=== PATIENT | male | born 1970 | race Caucasian/White ===

== ENCOUNTER → 2016-10-22 | Outpatient (CLI) | payer OTHER ==
[~2016-10-22] MED LIST: ASPI325T OR; No Historical Meds; PERC5TAB8 OR
[2016-10-22 18:04] LABS: ALBUMIN 4.1 GM/DL (3.2-5.2); ALBUMIN/GLOBULIN RATIO 1.11 (1.00-1.93); ALKALINE PHOSPHATASE 62 U/L (45-117); ALT/SGPT 139 U/L (12-78); ANION GAP 6 MEQ/L (8-16); AST/SGOT 74 U/L (15-37); BILIRUBIN,TOTAL 0.8 MG/DL (0.2-1.0); BLOOD UREA NITROGEN 16 MG/DL (7-18); CALCIUM LEVEL 8.8 MG/DL (8.5-10.1); CARBON DIOXIDE LEVEL 27 MEQ/L (21-32); CHLORIDE LEVEL 108 MEQ/L (98-107); CHOLESTEROL LEVEL 192 MG/DL (<200); GLOMERULAR FILTRATION RATE > 60.0 (>60); GLUCOSE, FASTING 82 MG/DL (70-105); POTASSIUM SERUM 4.4 MEQ/L (3.5-5.1); SODIUM LEVEL 141 MEQ/L (136-145); TOTAL PROTEIN 7.8 GM/DL (6.4-8.2); TRIGLYCERIDES LEVEL 151 MG/DL (<150)
--- NOTE | 2016-10-23 03:16 | REP ---
Clinical: Pain. Impingement syndrome. Technique: Internal rotation, external rotation, and Y view left shoulder. Findings: No acute fracture or dislocation. The acromioclavicular and glenohumeral joints are intact. No periarticular calcifications or degenerative changes are appreciated. Sub acromial space is normal. Surrounding soft tissues are unremarkable. Impression: Normal left shoulder radiographs. If the patient remains symptomatic consider MRI for further investigation. Signed by Brown Martinez MD 10/23/2016 03:07 A
[2016-10-23 10:00] LABS: HEPATITIS B SURFACE ANTIBODY POSITIVE (POSITIVE)
== END ==
LOC: M LAB 16:11
PROVIDERS: ATTEND Family Medicine Addiction Medicine
DX: M75.42 Impingement syndrome of left shoulder (principal); B19.20 Unspecified viral hepatitis C without hepatic coma; E78.5 Hyperlipidemia, unspecified; F52.21 Male erectile disorder

== ENCOUNTER 2017-09-05 15:12 | Emergency (ER) | payer OTHER ==
[2017-09-05] MEDS: ADACEL/BOOSTRIX VACCINE (DIPHTH/PERTUSS/ACELL/TETANUS)0.5ML SYR (90715) IM (15:45)
[2017-09-05] MEDS: LIDOCAINE 2% W/EPIN INJ 20ML **PRES FREE INJ (15:45)
== END 2017-09-05 16:29 | disposition home or self-care (01) ==
LOC: M ED 15:12
DX: S61.412A Laceration without foreign body of left hand, initial encounter (principal); W26.8XXA Contact with other sharp object(s), not elsewhere classified, initial encounter; Y92.099 Unspecified place in other non-institutional residence as the place of occurrence of the external cause; Y93.9 Activity, unspecified; Y99.9 Unspecified external cause status; Z86.19 Personal history of other infectious and parasitic diseases; M54.9 Dorsalgia, unspecified; F17.200 Nicotine dependence, unspecified, uncomplicated; Z79.899 Other long term (current) drug therapy
CPT/HCPCS: 90715

== ENCOUNTER → 2017-12-25 | Outpatient (REF) | payer OTHER ==
[2017-12-25 13:03] LABS: ALBUMIN 3.8 GM/DL (3.2-5.2); ALBUMIN/GLOBULIN RATIO 1.09 (1.00-1.93); ALKALINE PHOSPHATASE 67 U/L (45-117); ALT/SGPT 25 U/L (12-78); AST/SGOT 18 U/L (7-37); BILIRUBIN,DIRECT 0.2 MG/DL (0.0-0.2); BILIRUBIN,TOTAL 1.1 MG/DL (0.2-1.0); TOTAL PROTEIN 7.3 GM/DL (6.4-8.2)
[2017-12-29 14:12] LABS: HEPATITIS C QUANTITATION HCV Not Detected IU/mL (.)
== END ==
LOC: M SFHCPLAZ 08:55
DX: B18.2 Chronic viral hepatitis C (principal)
CPT/HCPCS: 80076

== ENCOUNTER → 2018-02-16 | Outpatient (CLI) | payer OTHER ==
[2018-02-16 14:13] LABS: HEMATOCRIT 45.8 % (42.0-52.0); HEMOGLOBIN 15.5 g/dl (13.5-17.5); MEAN CORPUSCULAR HGB CONC 33.8 g/dl (32.0-36.5); MEAN CORPUSCULAR VOLUME 88.6 fl (80.0-96.0); PLATELET COUNT, AUTOMATED 230 10^3/uL (150-450); RED BLOOD COUNT 5.17 10^6/uL (4.30-6.10); RED CELL DISTRIBUTION WIDTH 12.9 % (11.5-14.5); WHITE BLOOD COUNT 6.2 10^3/uL (4.0-10.0)
[2018-02-16 14:35] LABS: ANION GAP 9 MEQ/L (8-16); BLOOD UREA NITROGEN 12 MG/DL (7-18); CALCIUM LEVEL 8.7 MG/DL (8.5-10.1); CARBON DIOXIDE LEVEL 25 MEQ/L (21-32); CHLORIDE LEVEL 110 MEQ/L (98-107); GLOMERULAR FILTRATION RATE > 60.0 (>60); GLUCOSE, FASTING 93 MG/DL (70-100); POTASSIUM SERUM 4.2 MEQ/L (3.5-5.1); SODIUM LEVEL 144 MEQ/L (136-145)
== END ==
LOC: M LAB 13:18
DX: Z01.812 Encounter for preprocedural laboratory examination (principal); M20.12 Hallux valgus (acquired), left foot; M20.42 Other hammer toe(s) (acquired), left foot
CPT/HCPCS: 80048

== ENCOUNTER 2018-02-18 08:05 | Day surgery (SDC) | payer OTHER ==
[~2018-02-18 08:05] MED LIST changes: -ASPI325T OR; +LIDOCAINE 1% MDV 20ML VIAL SQ; +LIDOCAINE 2% INJ 100 MG/5 ML SDV (FOR ANES.) As Ordered; +MIDAZOLAM INJ 2 MG/2 ML VIAL (J2250) As Ordered; -No Historical Meds; +ONDANSETRON 4MG/2ML VIAL (J2405) As Ordered; -PERC5TAB8 OR; +PROPOFOL 200 MG/20 ML VIAL As Ordered; +fentaNYL 100 MCG/2 ML INJECTION (J3010) As Ordered
[2018-02-18] MEDS: LR 1,000 ML IV ×2 (09:08)
[2018-02-18] MEDS: BUPIVACAINE HCL 0.5% 30 ML VIAL As Ordered ×2 (10:05)
[2018-02-18] MEDS: LIDOCAINE 1% SDV INJ 30 ML VIAL As Ordered ×2 (10:05)
[2018-02-18] MEDS ORDERED: GLYCOPYRROLATE INJ 0.2 MG/ML 2 ML VIAL As Ordered ×2 (10:13)
[2018-02-18] MEDS ORDERED: PROPOFOL 200 MG/20 ML VIAL As Ordered ×6 (10:13→12:10)
[2018-02-18] MEDS ORDERED: KETAMINE HCL 200 MG/20 ML VIAL As Ordered ×2 (10:13)
[2018-02-18] MEDS ORDERED: MIDAZOLAM INJ 5 MG/ML VIAL (J2250) As Ordered ×2 (10:13)
[2018-02-18] MEDS: dexameTHASONE 4 MG/ML 1ML VIAL (J1100) As Ordered ×2 (12:00)
[2018-02-18] MEDS ORDERED: LR 1,000 ML IV ×2 (12:45)
[2018-02-18] MEDS ORDERED: PERCOCET 5MG/325MG TAB PO ×2 (12:45)
== END 2018-02-18 13:25 | disposition home or self-care (01) ==
LOC: M SDC 08:05
DX: M21.612 Bunion of left foot (principal); M20.12 Hallux valgus (acquired), left foot; M20.42 Other hammer toe(s) (acquired), left foot; K21.9 Gastro-esophageal reflux disease without esophagitis; F41.9 Anxiety disorder, unspecified; F32.9 Major depressive disorder, single episode, unspecified; F17.210 Nicotine dependence, cigarettes, uncomplicated; Z79.899 Other long term (current) drug therapy
CPT/HCPCS: 28296

== ENCOUNTER → 2018-08-01 | Outpatient (REF) | payer OTHER ==
[~2018-08-01] MED LIST changes: +ASPI325T OR; +GABA800T4 PO; +HYDR-3719 PO; +IBUP-1022 PO; -LIDOCAINE 1% MDV 20ML VIAL SQ; -LIDOCAINE 2% INJ 100 MG/5 ML SDV (FOR ANES.) As Ordered; +MELA10CA PO; -MIDAZOLAM INJ 2 MG/2 ML VIAL (J2250) As Ordered; +No Historical Meds; +OMEP40CA2 PO; -ONDANSETRON 4MG/2ML VIAL (J2405) As Ordered; +OXYC1TAB23 PO; +PERC5TAB8 OR; -PROPOFOL 200 MG/20 ML VIAL As Ordered; +SUBO8MIS SL; -fentaNYL 100 MCG/2 ML INJECTION (J3010) As Ordered
== END ==
LOC: M LAB 18:13
PROVIDERS: ATTEND Podiatrist Foot & Ankle Surgery
DX: Z01.818 Encounter for other preprocedural examination (principal)

== ENCOUNTER → 2018-08-03 | Outpatient (CLI) | payer OTHER ==
[2018-08-03 16:32] LABS: HEMATOCRIT 45.2 % (42.0-52.0); HEMOGLOBIN 15.1 g/dl (13.5-17.5); MEAN CORPUSCULAR HEMOGLOBIN 29.5 pg (27.0-33.0); MEAN CORPUSCULAR HGB CONC 33.4 g/dl (32.0-36.5); MEAN CORPUSCULAR VOLUME 88.5 fl (80.0-96.0); PLATELET COUNT, AUTOMATED 226 10^3/uL (150-450); RED BLOOD COUNT 5.11 10^6/uL (4.30-6.10); WHITE BLOOD COUNT 5.8 10^3/uL (4.0-10.0)
[2018-08-03 16:41] LABS: BLOOD UREA NITROGEN 16 MG/DL (7-18); CALCIUM LEVEL 8.8 MG/DL (8.5-10.1); CARBON DIOXIDE LEVEL 25 MEQ/L (21-32); CHLORIDE LEVEL 108 MEQ/L (98-107); CREATININE FOR GFR 0.89 MG/DL (0.70-1.30); GLOMERULAR FILTRATION RATE > 60.0 (>60); GLUCOSE, FASTING 88 MG/DL (70-100); POTASSIUM SERUM 4.3 MEQ/L (3.5-5.1); SODIUM LEVEL 138 MEQ/L (136-145)
== END ==
LOC: M LAB 07-28 10:11
PROVIDERS: ATTEND Podiatrist Foot & Ankle Surgery
DX: Z01.818 Encounter for other preprocedural examination (principal)

== ENCOUNTER 2018-08-05 07:27 | Day surgery (SDC) | payer OTHER ==
[~2018-08-05] VITALS: Ht 195.6 cm; Wt 121.1 kg
[~2018-08-05 07:27] MED LIST changes: -HYDR-3719 PO; +LR 1,000 ML IV ONE
[2018-08-05] MEDS ORDERED: fentaNYL 100 MCG/2 ML INJECTION (J3010) As Ordered ONE (07:57)
[2018-08-05] MEDS ORDERED: PROPOFOL 200 MG/20 ML VIAL As Ordered ONE ×2 (07:57→10:08)
[2018-08-05] MEDS ORDERED: LIDOCAINE 2% INJ 100 MG/5 ML SDV (FOR ANES.) As Ordered ONE (07:57)
[2018-08-05] MEDS ORDERED: MIDAZOLAM INJ 2 MG/2 ML VIAL (J2250) As Ordered ONE (07:57)
[2018-08-05] MEDS ORDERED: LIDOCAINE 1% MDV 20ML VIAL As Ordered ONE (08:38)
[2018-08-05] MEDS ORDERED: BUPIVACAINE HCL 0.5% 10 ML VIAL As Ordered ONE ×2 (08:38→09:06)
[2018-08-05] MEDS ORDERED: dexameTHASONE 4 MG/ML 1ML VIAL (J1100) As Ordered ONE ×2 (08:38→09:43)
[2018-08-05] MEDS ORDERED: KETOROLAC 60 MG/2 ML VIAL (J1885) As Ordered ONE (09:43)
[2018-08-05] MEDS ORDERED: ACETAMINOPHEN 1000MG 100ML IV BTL (OFIRMEV) (J0131 PER 10MG) As Ordered ONE (09:43)
[2018-08-05] MEDS ORDERED: ONDANSETRON 4MG/2ML VIAL (J2405) As Ordered ONE (09:43)
[2018-08-05] MEDS ORDERED: HYDR-3719 PO (10:58)
[2018-08-05] MEDS ORDERED: PERCOCET 5MG/325MG TAB As Ordered ONE (11:06)
[2018-08-05] MEDS ORDERED: ONDANSETRON 4MG/2ML VIAL (J2405) IV PRN (11:15)
[2018-08-05] MEDS ORDERED: LR 1,000 ML IV SCH (11:15)
[2018-08-05] MEDS ORDERED: PERCOCET 5MG/325MG TAB PO PRN (11:15)
[2018-08-05 11:25] VITALS: BP 128/72
[2018-08-05] MEDS ORDERED: PERCOCET 5MG/325MG TAB PO ONE (11:30)
--- NOTE | 2018-08-05 15:18 | RO ---
DATE OF PROCEDURE: 08/05/2018 PREPROCEDURE DIAGNOSES: Right foot bunion, hallux valgus, metatarsal deformity, 2 and 3 and hammertoe 2 and 3. POSTPROCEDURE DIAGNOSES: Right foot bunion, hallux valgus, metatarsal deformity, 2 and 3 and hammertoe 2 and 3. PROCEDURE: Right foot bunionectomy and first metatarsal osteotomy, Sergei osteotomy, shortening osteotomies metatarsals 2 and 3 and hammertoe correction toes 2 and 3. SURGEON: Dr. Cyrus Rain. PRODUCT MERCHANDISER: None. ANESTHESIA: Monitored anesthesia care. Preoperative injection of 30 mL of 1:1 mixture of 1% lidocaine plain, 0.5% Marcaine plain. ESTIMATED BLOOD LOSS: Minimal. MATERIALS: Arthrex 3.5 headless screw in the 1st metatarsal Arthrex 2.5 headless screws in the 2nd and 3rd metatarsals, 4-5 K-wires, #3-0 and #4-0 Vicryl, #4-0 nylon. Arthrex DynaNite staple. INJECTABLES: 1 mL Decadron 4 mg/mL. COMPLICATION: None. CONDITION: Stable. Ben Coreas is a 47-year-old male who presents with pain in his right foot. He presents today for surgical correction. The patient's site and side were identified and marked in the preoperative holding area. Consent was reviewed and obtained. All risks, complications and alternatives to the procedure were explained to the patient in detail and all questions were answered. DESCRIPTION OF PROCEDURE: The patient was brought to the operating room and placed on the operating room table in supine position. Monitored anesthesia care was delivered by the anesthesia team. Preoperative injection of 30 mL of 1:1 mixture of 1% lidocaine and 0.5% Marcaine plain were injected to the right foot. The right foot was prepped and draped in a normal sterile fashion. A tourniquet was applied to the right ankle and inflated to 250 mmHg. The patient received Ancef preoperatively. A dorsal incision was first made over the first metatarsophalangeal joint and carried through with a #15 blade. Dissection was carried to the metatarsophalangeal joint and capsule was identified. Bovie was used to maintain hemostasis. A T-capsulotomy was performed exposing the metatarsal head. Next, the lateral release was performed releasing the lateral capsule, sesamoidal ligaments and adductor tendon. McGlamry elevator was used to free the plantar structures. Following this, the medial eminence of the metatarsal was resected with sagittal saw and then osteotomy was performed of the metatarsal head transposing it laterally. This was fixated with an Arthrex 3.5 headless screw. The remaining bony ledge was removed with sagittal saw and smoothed with a rasp. The site was irrigated with normal saline. Next, attention was then paid to the proximal phalanx. Dissection was carried until the proximal phalanx bone was freed of soft tissue. Then using the sagittal saw, a wedge of the medial cortex was removed along the hallux to be translated into a more medial position. This was fixated with a Arthrex DynaNite staple. The site was irrigated with normal saline. A small wedge of the medial capsule of the 1st metatarsophalangeal joint was removed an capsular repaired was performed with #3-0 Vicryl, subcutaneous closure with #4-0 Vicryl, skin closure with #4-0 nylon. Next attention was paid to the 2nd and 3rd metatarsals. Dorsal incisions were made over each of these bones and carried through with a #15 blade. Dissection was carried to the metatarsophalangeal joints. Linear capsulotomy was performed exposing the 2nd and 3rd metatarsal heads. Using a McGlamry elevator, the plantar structures were released. An osteotomy was performed in the 2nd and 3rd metatarsal heads transposing them proximally. These were both fixated with an Arthrex 2.5 headless screw. The remaining bone ledge was removed with rongeur and smoothed with a rasp. Next, attention was paid distally towards the 2nd and 3rd toes. Dorsal incisions were made and tenotomies were made at the proximal interphalangeal joint exposing the proximal phalanx heads of the 2nd and 3rd toes. These were resected with a sagittal saw as well as the base of the middle phalanx cartilage. Using 4/5 K-wires, the toes were straightened in retrograde fashion from the distal toe into the metatarsal head. Wires were bent and cut. The extensor tendon was repaired with #3-0 Vicryl, subcutaneous closure with #4-0 Vicryl and skin closure of #4-0 nylon. 1 mL of Decadron was injected. Sterile dressings were applied. Tourniquet was deflated. The patient was brought to post anesthesia care unit (PACU) with vital signs stable and neurovascular status intact. He will be partial weightbearing. He will followup in the office in two days.
== END 2018-08-05 11:50 | disposition home or self-care (01) ==
LOC: M SDC 07:27
PROVIDERS: ATTEND Podiatrist Foot & Ankle Surgery
DX: M20.11 Hallux valgus (acquired), right foot (principal); M20.41 Other hammer toe(s) (acquired), right foot; M12.9 Arthropathy, unspecified; F41.9 Anxiety disorder, unspecified; F32.9 Major depressive disorder, single episode, unspecified; K21.9 Gastro-esophageal reflux disease without esophagitis; Z72.0 Tobacco use; Z86.19 Personal history of other infectious and parasitic diseases; Z86.59 Personal history of other mental and behavioral disorders; Z79.899 Other long term (current) drug therapy
CPT/HCPCS: 28299; 28308; 88300; C1713; J0131; J0690; J1100; J1885; J2250; J2405

== ENCOUNTER 2018-08-27 08:30 | Emergency (ER) | payer OTHER ==
[~2018-08-27] VITALS: Ht 195.6 cm; Wt 118.4 kg
[~2018-08-27 08:30] MED LIST changes: +HYDR-3719 PO; -LR 1,000 ML IV ONE
[2018-08-27] MEDS ORDERED: GABA600T4 (08:40)
[2018-08-27] MEDS ORDERED: GABA-843 (08:40)
[2018-08-27] MEDS ORDERED: TRAZ-160 (08:40)
[2018-08-27] MEDS ORDERED: NS 1,000 ML IV ONE (09:00)
[2018-08-27] MEDS ORDERED: ONDANSETRON 4MG/2ML VIAL (J2405) IV ONE ×2 (09:00→12:00)
[2018-08-27] MEDS ORDERED: FAMOTIDINE IV BAG 20 MG in APPROPRIATE DILUENT 1 EA IV ONE (09:00)
[2018-08-27] MEDS ORDERED: PANTOPRAZOLE 40MG INJ (PROTONIX) (C9113) IV ONE (09:00)
[2018-08-27 09:56] LABS: BASO % 0.2 % (0.0-1.0); EOS # 0.1 10^3/uL (0.0-0.50); EOS % 0.7 % (0.0-3.0); HEMATOCRIT 48.6 % (42.0-52.0); HEMOGLOBIN 16.3 g/dl (13.5-17.5); LYMPH # 2.3 10^3/uL (1.5-4.5); LYMPH % 27.3 % (24.0-44.0); MEAN CORPUSCULAR HEMOGLOBIN 28.5 pg (27.0-33.0); MEAN CORPUSCULAR HGB CONC 33.5 g/dl (32.0-36.5); MEAN CORPUSCULAR VOLUME 85.1 fl (80.0-96.0); MONO # 0.7 10^3/uL (0.0-0.8); MONO % 8.6 % (0.0-5.0); NEUTROPHILS # 5.3 10^3/uL (1.8-7.7); PLATELET COUNT, AUTOMATED 315 10^3/uL (150-450); RED BLOOD COUNT 5.71 10^6/uL (4.30-6.10); WHITE BLOOD COUNT 8.5 10^3/uL (4.0-10.0)
[2018-08-27] MEDS ORDERED: PROMETHAZINE INJ 25 MG/ML VIAL (J2550) IV ONE (10:45)
[2018-08-27 10:50] LABS: ALT/SGPT 12 U/L (12-78); AMYLASE 31 U/L (25-115); BILIRUBIN,DIRECT 0.2 MG/DL (0.0-0.2); BILIRUBIN,TOTAL 0.7 MG/DL (0.2-1.0); BLOOD UREA NITROGEN 19 MG/DL (7-18); CALCIUM LEVEL 8.9 MG/DL (8.5-10.1); CARBON DIOXIDE LEVEL 21 MEQ/L (21-32); CHLORIDE LEVEL 106 MEQ/L (98-107); CPK CREATINE PHOSPHOKINASE 57 U/L (39-308); CREATININE FOR GFR 1.21 MG/DL (0.70-1.30); GLOMERULAR FILTRATION RATE > 60.0 (>60); GLUCOSE, FASTING 125 MG/DL (70-100); LIPASE 86 U/L (73-393); MB/CK RELATIVE INDEX 2.11 (< OR =4); POTASSIUM SERUM 3.9 MEQ/L (3.5-5.1); SODIUM LEVEL 139 MEQ/L (136-145); TOTAL PROTEIN 7.9 GM/DL (6.4-8.2); TROPONIN I < 0.02 NG/ML (< 0.10)
--- NOTE | 2018-08-27 11:22 | REP ---
Chest two views HISTORY: Abdominal pain Comparison: None The lungs are clear. The heart is normal in size. The pulmonary vasculature is normal in appearance. The bony structure is intact. IMPRESSION: No acute disease. Electronically Signed by Carlito Baker MD 08/27/2018 11:14 A
[2018-08-27] MEDS ORDERED: ISOVUE-370 76% 100ML VIAL (Q9967) As Ordered ONE (11:56)
[2018-08-27] MEDS ORDERED: KETOROLAC 30 MG/ML VIAL (J1885) IV ONE (12:00)
--- NOTE | 2018-08-27 12:12 | REP ---
RIGHT UPPER QUADRANT ULTRASOUND: Real-time sonographic evaluation of right upper quadrant performed. No gallstones are seen in the gallbladder. There is no gallbladder wall thickening or pericholecystic fluid. There is dilation of the common bile duct, measuring approximately 1.1 cm. No stone is seen in the visualized common bile duct. There is a cyst in the left lobe of the liver measuring 8 mm in diameter. No other liver or pancreatic abnormality is seen. Pancreas is not optimally seen due to overlying bowel gas. Right kidney demonstrates no hydronephrosis or nephrolithiasis with normal size 14.3 cm in length. IMPRESSION: No gallstones are seen in a moderately distended gallbladder. There is no gallbladder wall thickening or free fluid. However, there is dilatation of the common bile duct 11 mm in diameter. No stone is seen in the visualized common bile duct. MRCP may be performed to evaluate the more distal common bile duct. Electronically Signed by Fahad Renteria MD 08/27/2018 04:37 P
--- NOTE | 2018-08-27 13:06 | REP ---
CT abdomen and pelvis with IV but without oral contrast: History: Upper abdominal pain. Intractable vomiting. Comparison CT study January 21, 2011. CT findings: There is a small zone of atelectasis in the right middle lobe which is a new finding from the 2011 study. This is incompletely seen at the top of the field of view. Cannot exclude pneumonia. There are granulomatous calcifications in the left lower lobe unchanged. Lung bases are otherwise clear. The liver is normal size and homogeneous in texture. The spleen measures 14.4 cm in greatest diameter and is considered mildly enlarged. It contains several granulomatous calcifications. In 2011, the spleen measured 12.3 cm in greatest diameter. No adrenal lesion is seen. No pancreatic abnormality is noted. No abnormality is visible in the gallbladder. The kidneys enhance symmetrically and are morphologically intact. No hydronephrosis or intrarenal calculus is seen. A normal retrocecal appendix is seen. No pancreatic abnormality. Normal caliber aorta is seen. No visceral arterial abnormality is observed. There is sigmoid colon diverticulosis without CT evidence of diverticulitis. No large or small bowel dilation is seen. No gastrointestinal mass lesion is observed. No pelvic mass or adenopathy is seen. There are one or two dystrophic calcifications in the prostate. Seminal vesicles and urinary bladder are unremarkable. No abdominal wall defect is seen. Bone window settings demonstrate bilateral L5 spondylolysis and a grade 1 L5-S1 spondylolisthesis. This measures 8 mm. There are degenerative disc changes at L5-S1 and L4-5. These bony changes are stable. Impression: 1. Infiltrate versus atelectasis right middle lobe of the lung. 2. Old granulomatous calcifications. Mild splenomegaly. 3. Normal appendix. Left colonic diverticulosis. No acute intra-abdominal abnormality. 4. Grade 1 spondylolisthesis due to bilateral L5 spondylolysis with secondary degenerative changes. Electronically Signed by Bear Swann MD 08/27/2018 01:12 P
[2018-08-27] MEDS ORDERED: ONDA4TAB6 PO (14:20)
[2018-08-27 14:21] VITALS: BP 118/71
--- NOTE | 2018-08-28 15:40 | ED PDOC ---
Post-Departure Follow-Up dr dc faxed formal report of ct abd/p for fu Octaviano Weir MD Aug 28, 2018 15:40
--- NOTE | 2018-08-29 06:37 | ECGEPIP ---
Stationary ECG Study 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
== END 2018-08-27 14:26 | disposition left against medical advice (07) ==
LOC: M ED 08:30
DX: R10.13 Epigastric pain (principal); R11.10 Vomiting, unspecified; K83.8 Other specified diseases of biliary tract; R16.1 Splenomegaly, not elsewhere classified; K57.30 Diverticulosis of large intestine without perforation or abscess without bleeding; R00.1 Bradycardia, unspecified; Z86.19 Personal history of other infectious and parasitic diseases; F11.20 Opioid dependence, uncomplicated; Z79.899 Other long term (current) drug therapy
CPT/HCPCS: 71046; 74177; 76705; 80048; 80076; 82150; 82550; 82553; 83690; 85025; 93005; 96365; 96366; 96375; 99284; C9113; J1885; J2405; Q9967

== ENCOUNTER 2018-10-07 07:59 | Emergency (ER) | payer OTHER ==
[~2018-10-07] VITALS: Ht 195.6 cm; Wt 122.7 kg
[~2018-10-07 07:59] MED LIST changes: +GABA-843; +GABA600T4; +ONDA4TAB6 PO; +TRAZ-252
[2018-10-07] MEDS ORDERED: ONDANSETRON 4MG/2ML VIAL (J2405) IV ONE (08:45)
[2018-10-07 09:01] LABS: BASO # 0.1 10^3/uL (0.0-0.2); BASO % 0.7 % (0.0-1.0); EOS # 0.1 10^3/uL (0.0-0.50); EOS % 0.9 % (0.0-3.0); HEMATOCRIT 45.3 % (42.0-52.0); LYMPH # 1.6 10^3/uL (1.5-4.5); LYMPH % 20.5 % (24.0-44.0); MEAN CORPUSCULAR HEMOGLOBIN 29.8 pg (27.0-33.0); MEAN CORPUSCULAR HGB CONC 33.1 g/dl (32.0-36.5); MEAN CORPUSCULAR VOLUME 90.1 fl (80.0-96.0); MONO # 0.7 10^3/uL (0.0-0.8); MONO % 8.7 % (0.0-5.0); NEUTROPHILS # 5.3 10^3/uL (1.8-7.7); NEUTROPHILS % 68.9 % (36.0-66.0); PLATELET COUNT, AUTOMATED 262 10^3/uL (150-450); RED BLOOD COUNT 5.03 10^6/uL (4.30-6.10); WHITE BLOOD COUNT 7.7 10^3/uL (4.0-10.0)
[2018-10-07 09:23] LABS: ALBUMIN 3.9 GM/DL (3.2-5.2); ALT/SGPT 25 U/L (12-78); AMYLASE 36 U/L (25-115); BILIRUBIN,DIRECT 0.1 MG/DL (0.0-0.2); BILIRUBIN,TOTAL 0.8 MG/DL (0.2-1.0); BLOOD UREA NITROGEN 16 MG/DL (7-18); CALCIUM LEVEL 8.7 MG/DL (8.5-10.1); CARBON DIOXIDE LEVEL 23 MEQ/L (21-32); CHLORIDE LEVEL 108 MEQ/L (98-107); CREATININE FOR GFR 0.96 MG/DL (0.70-1.30); GLOMERULAR FILTRATION RATE > 60.0 (>60); GLUCOSE, FASTING 117 MG/DL (70-100); LIPASE 85 U/L (73-393); POTASSIUM SERUM 3.9 MEQ/L (3.5-5.1); SODIUM LEVEL 141 MEQ/L (136-145); TOTAL PROTEIN 7.3 GM/DL (6.4-8.2)
[2018-10-07] MEDS: KETOROLAC 30 MG/ML VIAL (J1885) IV ONE ×2 (09:28→09:45)
[2018-10-07] MEDS ORDERED: GI COCKTAIL 50ML BTL(HYOSCYAMINE/MAALOX/LIDOCAINE VISCOUS)(1:3:1) PO ONE (09:30)
[2018-10-07] MEDS ORDERED: KETOROLAC 60 MG/2 ML VIAL (J1885) IM ONE (09:45)
[2018-10-07] MEDS ORDERED: OMEP40CA2 PO (10:36)
[2018-10-07] MEDS ORDERED: ONDA8TAB8 PO (10:37)
[2018-10-07] MEDS ORDERED: SUCR1SS PO (10:37)
[2018-10-07 10:46] VITALS: BP 137/75
== END 2018-10-07 10:50 | disposition home or self-care (01) ==
LOC: M ED 07:59
DX: K29.70 Gastritis, unspecified, without bleeding (principal); K21.0 Gastro-esophageal reflux disease with esophagitis; Z79.899 Other long term (current) drug therapy; F17.210 Nicotine dependence, cigarettes, uncomplicated
CPT/HCPCS: 80048; 80076; 82150; 83690; 85025; 96372; 96374; 99283; J1885; J2405

== ENCOUNTER → 2018-11-11 | Outpatient (CLI) | payer OTHER ==
[~2018-11-11] MED LIST changes: +ONDA8TAB8 PO; +SUCR1SS PO
[2018-11-11 10:58] LABS: CALCIUM LEVEL 9.1 MG/DL (8.5-10.1)
[2018-11-11 11:17] LABS: TOTAL 25(OH) VITAMIN D 28.3 NG/ML (30.0-100.0)
== END ==
LOC: M LAB 10:12
PROVIDERS: ATTEND Podiatrist Foot & Ankle Surgery
DX: E55.9 Vitamin D deficiency, unspecified (principal)

== ENCOUNTER 2018-12-11 10:08 | Day surgery (SDC) | payer OTHER ==
[~2018-12-11] VITALS: Ht 195.6 cm; Wt 109.2 kg
[~2018-12-11 10:08] MED LIST changes: -GABA-843; +GABA-843 PO; -GABA600T4; +GABA600T4 PO; +NS 1,000 ML IV ONE; +TEST200I14 IM
[2018-12-11] MEDS ORDERED: LIDOCAINE 2% INJ 100 MG/5 ML SDV (FOR ANES.) As Ordered ONE (10:38)
[2018-12-11] MEDS ORDERED: PROPOFOL 200 MG/20 ML VIAL As Ordered ONE ×3 (10:39→12:44)
--- NOTE | 2018-12-11 13:02 | ROOR ---
Patient Name: Ben Coreas Procedure Date: 12/11/2018 12:05 PM Date of : 1970 Age: 48 Room: [facility] Gender: Male Note Status: Finalized Procedure: Upper GI endoscopy Indications: Suspected gastro-esophageal reflux disease, Weight loss Providers: Erick De La O MD Referring MD: Ben COHEN MD Requesting Provider: Medicines: Monitored Anesthesia Care Complications: No immediate complications. Procedure: Pre-Anesthesia Assessment: - Prior to the procedure, a History and Physical was performed, and patient medications and allergies were reviewed. The patient is competent. The risks and benefits of the procedure and the sedation options and risks were discussed with the patient. All questions were answered and informed consent was obtained. Patient identification and proposed procedure were verified by the physician, the nurse and the anesthesiologist in the procedure room. Mental Status Examination: alert and oriented. Airway Examination: normal oropharyngeal airway and neck mobility. Respiratory Examination: clear to auscultation. CV Examination: normal. Prophylactic Antibiotics: The patient does not require prophylactic antibiotics. Prior Anticoagulants: The patient has taken no previous anticoagulant or antiplatelet agents. ASA Grade Assessment: II - A patient with mild systemic disease. After reviewing the risks and benefits, the patient was deemed in satisfactory condition to undergo the procedure. The anesthesia plan was to use monitored anesthesia care (MAC). Immediately prior to administration of medications, the patient was re-assessed for adequacy to receive sedatives. The heart rate, respiratory rate, oxygen saturations, blood pressure, adequacy of pulmonary ventilation, and response to care were monitored throughout the procedure. The physical status of the patient was re-assessed after the procedure. The Endoscope was introduced through the mouth, and advanced to the second part of duodenum. The upper GI endoscopy was accomplished without difficulty. The patient tolerated the procedure well. Findings: The Z-line was irregular and was found 45 cm from the incisors. LA Grade A (one or more mucosal breaks less than 5 mm, not extending between tops of 2 mucosal folds) esophagitis with no bleeding was found in the distal esophagus. Biopsies were taken with a cold forceps for histology. Verification of patient identification for the specimen was done by the physician and nurse using the patient's name, date and medical record number. Estimated blood loss was minimal. Scattered mild inflammation characterized by erythema, friability and granularity was found in the gastric body and in the gastric antrum. Biopsies were taken with a cold forceps for Helicobacter pylori testing. The duodenal bulb and second portion of the duodenum were normal. Biopsies for histology were taken with a cold forceps for evaluation of celiac disease. Impression: - Z-line irregular, 45 cm from the incisors. - LA Grade A reflux esophagitis. Biopsied. - Gastritis. Biopsied. - Normal duodenal bulb and second portion of the duodenum. Biopsied. Recommendation: - Patient has a contact number available for emergencies. The signs and symptoms of potential delayed complications were discussed with the patient. Return to normal activities tomorrow. Written discharge instructions were provided to the patient. - High fiber diet. - Continue present medications. - Await pathology results. - Follow an antireflux regimen. - Return to GI clinic in [facility] (address [address], [address], [place] [address]) in 4 -- 6 weeks. Please call GI clinic @ [phone] for apppointment date and time. - Return to primary care physician. Erick De La O MD Erick De La O MD 12/11/2018 1:02:17 PM Electronically signed by Erick De La O MD Number of Addenda: 0 Note Initiated On: 12/11/2018 12:05 PM Estimated Blood Loss: Estimated blood loss was minimal.
--- NOTE | 2018-12-11 13:06 | ROOR ---
Patient Name: eBn Coreas Procedure Date: 12/11/2018 12:07 PM Date of : 1970 Age: 48 Room: [facility] Gender: Male Note Status: Finalized Procedure: Colonoscopy Indications: Weight loss Providers: Erick De La O MD Referring MD: Ben COHEN MD Requesting Provider: Medicines: Monitored Anesthesia Care Complications: No immediate complications. Procedure: Pre-Anesthesia Assessment: - Prior to the procedure, a History and Physical was performed, and patient medications and allergies were reviewed. The patient is competent. The risks and benefits of the procedure and the sedation options and risks were discussed with the patient. All questions were answered and informed consent was obtained. Patient identification and proposed procedure were verified by the physician, the nurse and the anesthesiologist in the procedure room. Mental Status Examination: alert and oriented. Airway Examination: normal oropharyngeal airway and neck mobility. Respiratory Examination: clear to auscultation. CV Examination: normal. Prophylactic Antibiotics: The patient does not require prophylactic antibiotics. Prior Anticoagulants: The patient has taken no previous anticoagulant or antiplatelet agents. ASA Grade Assessment: II - A patient with mild systemic disease. After reviewing the risks and benefits, the patient was deemed in satisfactory condition to undergo the procedure. The anesthesia plan was to use monitored anesthesia care (MAC). Immediately prior to administration of medications, the patient was re-assessed for adequacy to receive sedatives. The heart rate, respiratory rate, oxygen saturations, blood pressure, adequacy of pulmonary ventilation, and response to care were monitored throughout the procedure. The physical status of the patient was re-assessed after the procedure. The Colonoscope was introduced through the anus and advanced to the terminal ileum, with identification of the appendiceal orifice and IC valve. The colonoscopy was performed without difficulty. The patient tolerated the procedure well. The quality of the bowel preparation was poor except the sigmoid colon was fair. The terminal ileum, ileocecal valve, appendiceal orifice, and rectum were photographed. Scope insertion time was 3 minutes. Scope withdrawal time was 10 minutes. The total duration of the procedure was 14 minutes. Findings: The perianal and digital rectal examinations were normal. The terminal ileum appeared normal. Copious quantities of semi-solid stool was found from descending colon to cecum, precluding visualization. Lavage of the area was performed using a large amount of sterile water, resulting in incomplete clearance with continued poor visualization. Normal mucosa was found in the left colon. Biopsies for histology were taken with a cold forceps from the right colon, left colon and rectosigmoid colon for evaluation of microscopic colitis. Verification of patient identification for the specimen was done by the physician and nurse using the patient's name, date and medical record number. Estimated blood loss was minimal. Three sessile polyps were found in the recto-sigmoid colon. The polyps were 3 to 6 mm in size. These polyps were removed with a cold biopsy forceps. Resection and retrieval were complete. Non-bleeding external and internal hemorrhoids were found during retroflexion. The hemorrhoids were medium-sized. Impression: - The examined portion of the ileum was normal. - Stool from descending to cecum. - Normal mucosa in the left colon. Biopsied. - Three 3 to 6 mm polyps at the recto-sigmoid colon, removed with a cold biopsy forceps. Resected and retrieved. - Non-bleeding external and internal hemorrhoids. Recommendation: - Patient has a contact number available for emergencies. The signs and symptoms of potential delayed complications were discussed with the patient. Return to normal activities tomorrow. Written discharge instructions were provided to the patient. - High fiber diet. - Continue present medications. - Await pathology results. - Repeat colonoscopy in 1 year for screening purposes, for surveillance based on pathology results and depending on clinical and functional status. - Return to GI clinic in [facility] (address [address], [address], [place], [address]) in 4 -- 6 weeks. Please call GI clinic @ [phone] for apppointment date and time. - Return to primary care physician. Erick De La O MD Erick De La O MD 12/11/2018 1:06:39 PM Electronically signed by Erick De La O MD Number of Addenda: 0 Note Initiated On: 12/11/2018 12:07 PM Estimated Blood Loss: Estimated blood loss was minimal.
[2018-12-11 13:46] VITALS: BP 129/76
== END 2018-12-11 13:45 | disposition home or self-care (01) ==
LOC: M OPP 10:08
PROVIDERS: ATTEND Internal Medicine Gastroenterology
DX: R63.4 Abnormal weight loss (principal); D12.7 Benign neoplasm of rectosigmoid junction; K64.8 Other hemorrhoids; K22.8 Other specified diseases of esophagus; K21.0 Gastro-esophageal reflux disease with esophagitis; K29.70 Gastritis, unspecified, without bleeding; Z86.19 Personal history of other infectious and parasitic diseases; F41.9 Anxiety disorder, unspecified; F32.9 Major depressive disorder, single episode, unspecified; F17.200 Nicotine dependence, unspecified, uncomplicated; F12.10 Cannabis abuse, uncomplicated; Z79.899 Other long term (current) drug therapy

== ENCOUNTER → 2019-03-23 | Outpatient (REF) | payer OTHER, MEDICAID ==
[~2019-03-23] MED LIST changes: -NS 1,000 ML IV ONE; -OMEP40CA2 PO; +OMEP40CA97 PO
[2019-03-23 12:06] LABS: BASO # 0.1 10^3/uL (0.0-0.2); BASO % 0.6 % (0.0-1.0); EOS # 0.1 10^3/uL (0.0-0.5); EOS % 1.2 % (0.0-3.0); HEMATOCRIT 45.6 % (42.0-52.0); HEMOGLOBIN 14.8 g/dl (13.5-17.5); LYMPH % 24.1 % (24.0-44.0); MEAN CORPUSCULAR HEMOGLOBIN 29.1 pg (27.0-33.0); MEAN CORPUSCULAR HGB CONC 32.5 g/dl (32.0-36.5); MEAN CORPUSCULAR VOLUME 89.6 fl (80.0-96.0); MONO # 0.6 10^3/uL (0.0-0.8); MONO % 7.7 % (0.0-5.0); NEUTROPHILS # 5.5 10^3/uL (1.5-8.5); NEUTROPHILS % 66.2 % (36.0-66.0); RED BLOOD COUNT 5.09 10^6/uL (4.30-6.10); WHITE BLOOD COUNT 8.4 10^3/uL (4.0-10.0)
[2019-03-23 12:17] LABS: ALBUMIN 3.8 GM/DL (3.2-5.2); ALT/SGPT 17 U/L (12-78); BILIRUBIN,TOTAL 0.7 MG/DL (0.2-1.0); BLOOD UREA NITROGEN 20 MG/DL (7-18); CALCIUM LEVEL 8.6 MG/DL (8.5-10.1); CARBON DIOXIDE LEVEL 29 MEQ/L (21-32); CHLORIDE LEVEL 102 MEQ/L (98-107); CHOLESTEROL LEVEL 140 MG/DL (<200); CHOLESTEROL RISK RATIO 4.117 (<5); CREATININE FOR GFR 0.99 MG/DL (0.70-1.30); FREE T4 0.82 NG/DL (0.76-1.46); GLOMERULAR FILTRATION RATE > 60.0 (>60); GLUCOSE, FASTING 121 MG/DL (70-100); HDL CHOLESTEROL 34 MG/DL (>40); LDL CHOLESTEROL 92 MG/DL (<100); NON-HDL-C 106 MG/DL; POTASSIUM SERUM 4.7 MEQ/L (3.5-5.1); SODIUM LEVEL 139 MEQ/L (136-145); TOTAL PROTEIN 7.5 GM/DL (6.4-8.2); TRIGLYCERIDES LEVEL 71 MG/DL (<150)
[2019-03-23 12:19] LABS: TOTAL 25(OH) VITAMIN D 25.6 NG/ML (30.0-100.0)
[2019-03-23 12:52] LABS: HEMOGLOBIN A1c 5.4 %
[2019-03-26 00:07] LABS: Lyme Disease IgG Ab 18 kDa Ban Present (.); Lyme Disease IgG Ab 23 kDa Ban Present (.); Lyme Disease IgG Ab 28 kDa Ban Present (.); Lyme Disease IgG Ab 30 kDa Ban Present (.); Lyme Disease IgG Ab 39 kDa Ban Present (.); Lyme Disease IgG Ab 41 kDa Ban Present (.); Lyme Disease IgG Ab 45 kDa Ban Absent (.); Lyme Disease IgG Ab 58 kDa Ban Present (.); Lyme Disease IgG Ab 66 kDa Ban Present (.); Lyme Disease IgG Ab 93 kDa Ban Present (.); Lyme Disease IgG West Blot Int Positive (.); Lyme Disease IgG/IgM Antibodie 2.97 ISR (0.00-0.90); Lyme Disease IgM Ab 23 kDa Ban Present (.); Lyme Disease IgM Ab 39 kDa Ban Absent (.); Lyme Disease IgM Ab 41 kDa Ban Present (.); Lyme Disease IgM West Blot Int Positive (.)
== END ==
LOC: M LAB REF 11:22
PROVIDERS: ATTEND Family Medicine
DX: M79.89 Other specified soft tissue disorders (principal); M25.50 Pain in unspecified joint; Z12.5 Encounter for screening for malignant neoplasm of prostate; Z13.228 Encounter for screening for other metabolic disorders; R63.4 Abnormal weight loss

== ENCOUNTER → 2019-10-12 | Outpatient (CLI) | payer OTHER | LOC: M LABSMTC 13:02 | PROVIDERS: ATTEND Family Medicine | DX: Z03.818 Encounter for observation for suspected exposure to other biological agents ruled out (principal); Z11.59 Encounter for screening for other viral diseases | CPT/HCPCS: C9803; U0003 ==

== ENCOUNTER 2020-06-05 19:50 | Emergency (ER) | payer OTHER ==
[~2020-06-05] VITALS: Ht 195.6 cm; Wt 125.5 kg
[~2020-06-05 19:50] MED LIST changes: +GABA-282 PO; -GABA-843 PO
--- OUTSIDE RECORDS SUMMARY | 2020-06-05 20:00 | CCD ---
Author Organization Unknown Address [address] [place] [id number] Phone [phone] Care Team Providers Care Garbage Person Name Role Phone Ben Jackson Unavailable Unavailable Allergies Code Code System Name Reaction Severity Status Onset NKDA Medications Name Status Start Date Stop Date albuterol sulfate HFA 90 mcg/actuation aerosol inhaler Active Not available buprenorphine 8 mg-naloxone 2 mg sublingual film Completed 05/30/2020 DOK 100 mg capsule Completed 05/30/2020 doxepin 25 mg capsule Completed 05/30/2020 doxycycline monohydrate 100 mg capsule Completed 05/30/2020 duloxetine 60 mg capsule,delayed release Completed 05/30/2020 gabapentin 600 mg tablet TAKE ONE TABLET BY MOUTH FOUR TIMES DAILY Active Not available hydrocodone 10 mg-acetaminophen 325 mg t ablet TAKE ONE TABLET BY MOUTH EVERY TWELVE HOURS NEEDED FOR PAIN, MAX DAILY DOSE TWO TABLETS Active Not available hydrocortisone 1 % topical cream Active Not available hydrocortisone 2.5 % topical cream with perineal applicator Acti ve Not available ibuprofen 600 mg tablet TAKE ONE TABLET BY MOUTH THREE TIMES DAILY NEEDED Active Not available Narcan 4 mg/actuation nasal spray Active Not available omeprazole 20 mg capsule,delayed release TAKE ONE CAPSULE BY MOUTH ONCE DAILY Active No t available omeprazole 40 mg capsule,delayed release Completed 05/30/2020 ondansetron HCl 8 mg tablet Active Not available testosterone cypionate 200 mg/mL intramu scular oil INJECT ONE MILLILITER INTRAMUSCULARLY EVERY TWO WEEKS MAX DAILY DOSE ONE MILLILITER EVERY TWO WEEKS Active Not available trazodone 50 mg tablet Completed Problems Name Status Onset Date Source Psychoactive Substance Abuse Active 2012 His tory Pain in Right Hip Joint Active 2012 History Tobacco Use and Exposure - Finding Active 2012 History Vitamin D Deficiency Active 09/17/2012 History Hyperlipidemia Active 09/17/2012 History Screening for Malignant Neoplasm of Prostate Active History Finding of Knee Region Active 10/28/2012 History Abdominal Pain Active 05/31/2013 History Hyperglycemia Active 11/17/2013 History Psychogenic Impotence Active 11/17/2013 History Contact Dermatitis Active 01/25/2015 History Backache Active 06/06/2015 History Clinical Finding Active 11/22/2015 History Gastroesophageal Reflux Disease without Esophagitis Active 01/30/2016 History Disorder by Body Site Active 01/30/2016 History Bunion Active 09/20/2016 History 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 History Hepatitis C Carrier Active 10/24/2016 History Lateral Epicondylitis of Left Humerus Active 12/26/2016 History Insomnia Active 03/20/2017 History Patellofemoral Osteoarthritis Active 05/22/2017 Hi story Persistent Asthma Active 07/29/2017 History Open Wound of Hand Active 09/18/2017 History Joint Finding Active 01/20/2018 History Epigastric Pain Active 09/25/2018 History Polyalgia Active 01/01/2019 History Abnormal Weight Loss Active 01/01/2019 History Endocrine/metabolic Screening Active 01/01/2019 Hi story Finding of Body Region Active 01/01/2019 History Finding of Defecation Active 02/01/2019 History Hypopituitarism Active 05/29/2019 History Borreliosis Active 05/29/2019 History Residual Hemorrhoidal Skin Tags Active 06/18/2019 History Pain in Thoracic Spine Active 06/18/2019 History Opioid Dependence in Remission Active 09/24/2019 H istory Viral Hepatitis C Active History Depressive Disorder Active History Arthropathy Active History SNOMED CT Concept Active History Procedures None recorded. Results Lab Results None recorded. Past Encounters 05/30/2020 Backache; Bunion; Depressive Disorder; Gastroesophageal Reflux Disease without Esophagitis Ben Jackson MD: [address] [place] [phone], Ph. Social History Tobacco Smoking Status Light Tobacco Smoker (05/08 PPD) Vaccine List Vaccine Type influenza, injectable, quadrivalent, pre servative free 01/25/20150.5 mL Plan of Care Reminders Provider Appointments None recorded. Lab None recorded. Referral None recorded. Procedures None recorded. Surgeries None recorded. Imaging None recorded. Vitals 05/30/2020 03:20PM ESTABLISHED [id number] Height Weight BMI Blood Pressure 71 in 269 lbs 8 oz 37.6 kg/m2 129/85 mm[Hg] 09/24/2019 Height Weight Blood Pressure 71 in 216 lbs 149/83 mm[Hg] 06/18/2019 Height Weight Blood Pressure 71 in 225 lbs 4 oz 118/78 mm[Hg] 05/29/2019 Height Weight Blood Pressure 71 in 228 lbs 8 oz 109/69 mm[Hg] 02/01/2019 Height Weight Blood Pressure 71 in 238 lbs 6.08 oz 114/61 mm[Hg] 01/01/2019 Height Weight Blood Pressure 71 in 246 lbs 2.08 oz 115/73 mm[Hg] 09/25/2018 Height Weight Blood Pressure 71 in 260 lbs 6.08 oz 126/76 mm[Hg]
--- OUTSIDE RECORDS SUMMARY | 2020-06-05 20:01 | CCD ---
Author Author [facility] Organization [facility] Address Unknown Phone Unavailable Support Name Relationship Address Phone Matthias Givens Next Of Kin Unknown Unavailable Jonathan Faustin MD Next Of Kin [address] [place] [address] ANILA CARLTON Next Of Kin [address] [place] [address] NELA GIVENS Next Of Kin [address] [place] [address] NELA GIVENS Next Of Kin [address] [place] [address] Ben Jackson MD Next Of Kin [address] [place] [address] Andreina Rivera Next Of Kin [address] [place] [phone] EVETTE GIVENS Next Of Kin [address] [place] [address] ST Next Of Kin Unknown Unavailable Trang Montiel Next Of Kin [address] [place] [address] Grecia Love Next Of Kin [address] [place] [id number] Nitin Gao Next Of Kin [address] [place] [id number] [place] Next Of Kin Unknown Unavailable FRANK BECERRA Next Of Kin Unknown [id number] [place] [employer] [address] UNK MISTER [place] [address] BEN CARLTON Next Of Kin [address] [place] [id number] RYAN CARLTON Next Of Kin [id number] [place] [address] UE Next Of Kin Unknown Unavailable Angela GONZALES Next Of Kin [address] [place] [address] NORA GIVENS ECON [address] [place] [address] Unavailable Evette Givens ECON Unknown [phone] Care Team Providers Care Long Distance Billing Operator Name Role Phone WICKERT, FILIBERTO CUSTOMER ACQUISITION SPECIALIST Unavailable Unavailable WICKERT, FILIBERTO CUSTOMER ACQUISITION SPECIALIST Unavailable Unavailable WICKERT, FILIBERTO CUSTOMER ACQUISITION SPECIALIST Unavailable Unavailable WICKERT, FILIBERTO CUSTOMER ACQUISITION SPECIALIST Unavailable Unavailable WICKERT, FILIBERTO CUSTOMER ACQUISITION SPECIALIST Unavailable Unavailable WICKERT, FILIBERTO CUSTOMER ACQUISITION SPECIALIST Unavailable Unavailable WICKERT, FILIBERTO CUSTOMER ACQUISITION SPECIALIST Unavailable Unavailable WICKERT, FILIBERTO CUSTOMER ACQUISITION SPECIALIST Unavailable Unavailable WICKERT, FILIBERTO CUSTOMER ACQUISITION SPECIALIST Unavailable Unavailable WICKERT, FILIBERTO CUSTOMER ACQUISITION SPECIALIST Unavailable Unavailable WICKERT, FILIBERTO CUSTOMER ACQUISITION SPECIALIST Unavailable Unavailable WICKERT, FILIBERTO CUSTOMER ACQUISITION SPECIALIST Unavailable Unavailable WICKERT, FILIBERTO CUSTOMER ACQUISITION SPECIALIST Unavailable Unavailable WICKERT, FILIBERTO CUSTOMER ACQUISITION SPECIALIST Unavailable Unavailable WICKERT, FILIBERTO CUSTOMER ACQUISITION SPECIALIST Unavailable Unavailable WICKERT, FILBIERTO CUSTOMER ACQUISITION SPECIALIST Unavailable Unavailable WICKERT, FILIBERTO CUSTOMER ACQUISITION SPECIALIST Unavailable Unavailable WICKERT, FILIBERTO CUSTOMER ACQUISITION SPECIALIST Unavailable Unavailable WICKERT, IFLIBERTO CUSTOMER ACQUISITION SPECIALIST Unavailable Unavailable WICKERT, FILIBERTO CUSTOMER ACQUISITION SPECIALIST Unavailable Unavailable WICKERT, FILIBERTO CUSTOMER ACQUISITION SPECIALIST Unavailable Unavailable WICKERT, FILIBERTO CUSTOMER ACQUISITION SPECIALIST Unavailable Unavailable WICKERT, FILIBERTO CUSTOMER ACQUISITION SPECIALIST Unavailable Unavailable WICKERT, FILIBERTO CUSTOMER ACQUISITION SPECIALIST Unavailable Unavailable WICKERT, FILIBERTO CUSTOMER ACQUISITION SPECIALIST Unavailable Unavailable WICKERT, FILIBERTO CUSTOMER ACQUISITION SPECIALIST Unavailable Unavailable WICKERT, FILIBERTO CUSTOMER ACQUISITION SPECIALIST Unavailable Unavailable WICKERT, FILIBERTO CUSTOMER ACQUISITION SPECIALIST Unavailable Unavailable WICKERT, FILIBERTO CUSTOMER ACQUISITION SPECIALIST Unavailable Unavailable Mark MONGE DPM Unavailable Unavailable Mark MONGE DPM Unavailable Unavailable Mark MONGE DPM Unavailable Unavailable Mark MONGE DPM Unavailable Unavailable Mark MONGE DPM Unavailable Unavailable Mark MONGE DPM Unavailable Unavailable Mark MONGE DPM Unavailable Unavailable Mark MONGE DPM Unavailable Unavailable Mark MONGE DPM Unavailable Unavailable Mark MONGE DPM Unavailable Unavailable Mark MONGE DPM Unavailable Unavailable Mark MONGE DPM Unavailable Unavailable Mark MONGE DPM Unavailable Unavailable MAJAK, R TOBIAS DPM Unavailable Unavailable MAJAK, R TOBIAS DPM Unavailable Unavailable MAJAK, R TOBIAS DPM Unavailable Unavailable MAJAK, R TOBIAS DPM Unavailable Unavailable MAJAK, R TOBIAS DPM Unavailable Unavailable MAJAK, R TOBIAS DPM Unavailable Unavailable MAJAK, R TOBIAS DPM Unavailable Unavailable MAJAK, R TOBIAS DPM Unavailable Unavailable MAJAK, R TOBIAS DPM Unavailable Unavailable MAJAK, R TOBIAS DPM Unavailable Unavailable MAJAK, R TOBIAS DPM Unavailable Unavailable MAJAK, R TOBIAS DPM Unavailable Unavailable MAJAK, R TOBIAS DPM Unavailable Unavailable MAJAK, R TOBIAS DPM Unavailable Unavailable MAJAK, R TOBIAS DPM Unavailable Unavailable MAJAK, R TOBIAS DPM Unavailable Unavailable MAJAK, R TOBIAS DPM Unavailable Unavailable Emanuel Jackson MD Unavailable Unavailable Emanuel Jackson MD Unavailable Unavailable Emanuel Jackson MD Unavailable Unavailable Emanuel Jackson MD Unavailable Unavailable Emanuel Jackson MD Unavailable Unavailable Emanuel Jackson MD Unavailable Unavailable Emanuel Jackson MD Unavailable Unavailable Emanuel Jackson MD Unavailable Unavailable Emanuel Jackson MD Unavailable Unavailable Emanuel Jackson MD Unavailable Unavailable Emanuel Jackson MD Unavailable Unavailable Emanuel Jackson MD Unavailable Unavailable Emanuel Jackson MD Unavailable Unavailable Emanuel Jackson MD Unavailable Unavailable Emanuel Jackson MD Unavailable Unavailable Emanuel Jackson MD Unavailable Unavailable Emanuel Jackson MD Unavailable Unavailable Emanuel Jackson MD Unavailable Unavailable Emanuel Jackson MD Unavailable Unavailable Emanuel Jackson MD Unavailable Unavailable Emanuel Jackson MD Unavailable Unavailable Emanuel Jackson MD Unavailable Unavailable Emanuel Jackson MD Unavailable Unavailable Emanuel Jackson MD Unavailable Unavailable Emanuel Jackson MD Unavailable Unavailable Emanuel Jackson MD Unavailable Unavailable Emanuel Jackson MD Unavailable Unavailable Emanuel Jackson MD Unavailable Unavailable Emanuel Jackson MD Unavailable Unavailable Emanuel Jackson MD Unavailable Unavailable Emanuel Jackson MD Unavailable Unavailable Emanuel Jackson MD Unavailable Unavailable Emanuel Jackson MD Unavailable Unavailable Emanuel Jackson MD Unavailable Unavailable Emanuel Jackson MD Unavailable Unavailable Emanuel Jackson MD Unavailable Unavailable Emanuel Jackson MD Unavailable Unavailable Emanuel Jackson MD Unavailable Unavailable Emanuel Jackson MD Unavailable Unavailable Emanuel Jackson MD Unavailable Unavailable Emanuel Jackson MD Unavailable Unavailable Emanuel Jackson MD Unavailable Unavailable Emanuel Jackson MD Unavailable Unavailable Emanuel Jackson MD Unavailable Unavailable Emanuel Jackson MD Unavailable Unavailable Emanuel Jackson MD Unavailable Unavailable Emanuel Jackson MD Unavailable Unavailable Emanuel Jackson MD Unavailable Unavailable Emanuel Jackson MD Unavailable Unavailable Emanuel Jackson MD Unavailable Unavailable Emanuel Jackson MD Unavailable Unavailable Emanuel Jackson MD Unavailable Unavailable Emanuel Jackson MD Unavailable Unavailable Emanuel Jackson MD Unavailable Unavailable Emanuel Jackson MD Unavailable Unavailable Emanuel Jackson MD Unavailable Unavailable Emanuel Jackson MD Unavailable Unavailable Emanuel Jackson MD Unavailable Unavailable Emanuel Jackson MD Unavailable Unavailable Emanuel Jackson MD Unavailable Unavailable Emanuel Jackson MD Unavailable Unavailable Emanuel Jackson MD Unavailable Unavailable Emanuel Jackson MD Unavailable Unavailable Emanuel Jackson MD Unavailable Unavailable Emanuel Jackson MD Unavailable Unavailable Emanuel Jackson MD Unavailable Unavailable Emanuel Jackson MD Unavailable Unavailable Emanuel Jackson MD Unavailable Unavailable Emanuel Jackson MD Unavailable Unavailable Emanuel Jackson MD Unavailable Unavailable Emanuel Jackson MD Unavailable Unavailable Emanuel Jackson MD Unavailable Unavailable Emanuel Jackson MD Unavailable Unavailable Emanuel Jackson MD Unavailable Unavailable Emanuel Jackson MD Unavailable Unavailable Emanuel Jackson MD Unavailable Unavailable Emanuel Jackson MD Unavailable Unavailable Emanuel Jackson MD Unavailable Unavailable Emanuel Jackson MD Unavailable Unavailable Emanuel Jackson MD Unavailable Unavailable Emanuel Jackson MD Unavailable Unavailable Emanuel Jackson MD Unavailable Unavailable Emanuel Jackson MD Unavailable Unavailable Emanuel Jackson MD Unavailable Unavailable Emanuel Jackson MD Unavailable Unavailable Emanuel Jackson MD Unavailable Unavailable Emanuel Jackson MD Unavailable Unavailable Emanuel Jackson MD Unavailable Unavailable Emanuel Jackson MD Unavailable Unavailable Emanuel Jackson MD Unavailable Unavailable Emanuel Jackson MD Unavailable Unavailable Emanuel Jackson MD Unavailable Unavailable Emanuel Jackson MD Unavailable Unavailable Emanuel Jackson MD Unavailable Unavailable Emanuel Jackson MD Unavailable Unavailable Emanuel Jackson MD Unavailable Unavailable Emanuel Jackson MD Unavailable Unavailable Emanuel Jackson MD Unavailable Unavailable Emanuel Jackson MD Unavailable Unavailable Emanuel Jackson MD Unavailable Unavailable Emanuel Jackson MD Unavailable Unavailable Emanuel Jackson MD Unavailable Unavailable Emanuel Jackson MD Unavailable Unavailable Emanuel Jackson MD Unavailable Unavailable Emanuel Jackson MD Unavailable Unavailable Emanuel Jackson MD Unavailable Unavailable Emanuel Jackson MD Unavailable Unavailable Emanuel Jackson MD Unavailable Unavailable Emanuel Jackson MD Unavailable Unavailable Emanuel Jackson MD Unavailable Unavailable Emanuel Jackson MD Unavailable Unavailable Emanuel Jackson MD Unavailable Unavailable Emanuel Jackson MD Unavailable Unavailable Emanuel Jackson MD Unavailable Unavailable Emanuel Jackson MD Unavailable Unavailable Emanuel Jackson MD Unavailable Unavailable Emanuel Jackson MD Unavailable Unavailable Emanuel Jackson MD Unavailable Unavailable Emanuel Jackson MD Unavailable Unavailable Emanuel Jackson MD Unavailable Unavailable Emanuel Jackson MD Unavailable Unavailable Emanuel Jackson MD Unavailable Unavailable JacksonEmanuel MD Unavailable Unavailable JacksonEmanuel MD Unavailable Unavailable JacksonEmanuel MD Unavailable Unavailable Emanuel Jackson MD Unavailable Unavailable Emanuel Jackson MD Unavailable Unavailable Emanuel Jackson MD Unavailable Unavailable Emanuel Jackson MD Unavailable Unavailable Emanuel Jackson MD Unavailable Unavailable Emanuel Jackson MD Unavailable Unavailable Emanuel Jackson MD Unavailable Unavailable Emanuel Jackson MD Unavailable Unavailable JacksonEmanuel MD Unavailable Unavailable JacksonEmanuel MD Unavailable Unavailable JacksonEmanuel MD Unavailable Unavailable JacksonEmanuel MD Unavailable Unavailable Emanuel Jackson MD Unavailable Unavailable Emanuel Jackson MD Unavailable Unavailable Emanuel Jackson MD Unavailable Unavailable Emanuel Jackson MD Unavailable Unavailable Emanuel Jackson MD Unavailable Unavailable Emanuel Jackson MD Unavailable Unavailable Emanuel Jackson MD Unavailable Unavailable Emanuel Jackson MD Unavailable Unavailable Emanuel Jackson MD Unavailable Unavailable Emanuel Jackson MD Unavailable Unavailable Emanuel Jackson MD Unavailable Unavailable Emanuel Jackson MD Unavailable Unavailable Emaneul Jackosn MD Unavailable Unavailable Emanuel Jackson MD Unavailable Unavailable Emanuel Jackson MD Unavailable Unavailable Emanuel Jackson MD Unavailable Unavailable Emanuel Jackson MD Unavailable Unavailable Emanuel Jackson MD Unavailable Unavailable Emanuel Jackson MD Unavailable Unavailable Emanuel Jackson MD Unavailable Unavailable Emanuel Jackson MD Unavailable Unavailable Emanuel Jackson MD Unavailable Unavailable Emanuel Jackson MD Unavailable Unavailable Emanuel Jackson MD Unavailable Unavailable Emanuel Jackson MD Unavailable Unavailable Emanuel Jackson MD Unavailable Unavailable Emanuel Jackson MD Unavailable Unavailable Emanuel Jackson MD Unavailable Unavailable Emanuel Jackson MD Unavailable Unavailable Emanuel Jackson MD Unavailable Unavailable Emanuel Jackson MD Unavailable Unavailable Emanuel Jackson MD Unavailable Unavailable Emanuel Jackson MD Unavailable Unavailable Emanuel Jackson MD Unavailable Unavailable Emanuel Jackson MD Unavailable Unavailable Emanuel Jackson MD Unavailable Unavailable Emanuel Jackson MD Unavailable Unavailable Emanuel Jackson MD Unavailable Unavailable Emanuel Jackson MD Unavailable Unavailable Emanuel Jackson MD Unavailable Unavailable Emanuel Jackson MD Unavailable Unavailable Mariah, C Chandrakant Unavailable Unavailable [place], C Chandarkant Unavailable Unavailable Mariah, C Chandrakant Unavailable Unavailable Mariah, C Chandrakant Unavailable Unavailable [place], C Chandrakant Unavailable Unavailable Mariah, C Chandrakant Unavailable Unavailable Mariah, C Chandrakant Unavailable Unavailable Lamont Santana PMH-CUSTOMER ACQUISITION SPECIALIST Unavailable Unavailable QuemadoLamont josé PMH-CUSTOMER ACQUISITION SPECIALIST Unavailable Unavailable Quemado, K Sera PMH-CUSTOMER ACQUISITION SPECIALIST Unavailable Unavailable [place], Lamont GambleSera PMH-CUSTOMER ACQUISITION SPECIALIST Unavailable Unavailable Lamont Santana PMH-CUSTOMER ACQUISITION SPECIALIST Unavailable Unavailable Lamont Santana PMH-CUSTOMER ACQUISITION SPECIALIST Unavailable Unavailable Nuris FAUSTIN MD Unavailable Unavailable Nuris FAUSTIN MD Unavailable Unavailable Nuris FAUSTIN MD Unavailable Unavailable Nuris FAUSTIN MD Unavailable Unavailable Nuris FAUSTIN MD Unavailable Unavailable Nuris FAUSTIN MD Unavailable Unavailable Nuris FAUSTIN MD Unavailable Unavailable Nuris FAUSTIN MD Unavailable Unavailable Nuris FAUSTIN MD Unavailable Unavailable Nuris FAUSTIN MD Unavailable Unavailable Nuris FAUSTIN MD Unavailable Unavailable Nuris FAUSTIN MD Unavailable Unavailable Nuris FAUSTIN MD Unavailable Unavailable Nuris FAUSTIN MD Unavailable Unavailable Nuris FAUSTIN MD Unavailable Unavailable Nuris FAUSTIN MD Unavailable Unavailable Nuris FAUSTIN MD Unavailable Unavailable Nuris FAUSTIN MD Unavailable Unavailable Nuris FAUSTIN MD Unavailable Unavailable Nuris FAUSTIN MD Unavailable Unavailable Nuris FAUSTIN MD Unavailable Unavailable Nuris FAUSTIN MD Unavailable Unavailable Nuris FAUSTIN MD Unavailable Unavailable Nuris FAUSTIN MD Unavailable Unavailable Nuris FAUSTIN MD Unavailable Unavailable Nuris FAUSTIN MD Unavailable Unavailable Nuris FAUSTIN MD Unavailable Unavailable Nuris FAUSTIN MD Unavailable Unavailable Nuris FAUSITN MD Unavailable Unavailable Nuris FAUSTIN MD Unavailable Unavailable Nuris FAUSTIN MD Unavailable Unavailable Nuris FAUSTIN MD Unavailable Unavailable Nuris FAUSTIN MD Unavailable Unavailable Nuris FAUSTIN MD Unavailable Unavailable Nuris FAUSTIN MD Unavailable Unavailable Nuris FAUSTIN MD Unavailable Unavailable Nuris FAUSTIN MD Unavailable Unavailable Nuris FAUSTIN MD Unavailable Unavailable Nuris FAUSTIN MD Unavailable Unavailable Nuris FAUSTIN MD Unavailable Unavailable Nuris FAUSTIN MD Unavailable Unavailable Nuris FAUSTIN MD Unavailable Unavailable Nuris FAUSTIN MD Unavailable Unavailable Nuris FAUSTIN MD Unavailable Unavailable Nuris FAUSTIN MD Unavailable Unavailable Nuris FAUSTIN MD Unavailable Unavailable Nuris FAUSTIN MD Unavailable Unavailable Nuris FAUSTIN MD Unavailable Unavailable Nuris FAUSTIN MD Unavailable Unavailable Nuris FAUSTIN MD Unavailable Unavailable Nuris FAUSTIN MD Unavailable Unavailable Nuris FAUSTIN MD Unavailable Unavailable Nuris FAUSTIN MD Unavailable Unavailable Nuris FAUSTIN MD Unavailable Unavailable Nuris FAUSTIN MD Unavailable Unavailable Nuris FAUSTIN MD Unavailable Unavailable Nuris FAUSTIN MD Unavailable Unavailable Nuris FAUSTIN MD Unavailable Unavailable Nuris FAUSTIN MD Unavailable Unavailable Nuris FAUSTIN MD Unavailable Unavailable Nuris FAUSTIN MD Unavailable Unavailable Nuris FAUSTIN MD Unavailable Unavailable Nuris FAUSTIN MD Unavailable Unavailable Nuris FAUSTIN MD Unavailable Unavailable Nuris FAUSTIN MD Unavailable Unavailable Nuris FAUSTIN MD Unavailable Unavailable Nuris FAUSTIN MD Unavailable Unavailable Nuris FAUSTIN MD Unavailable Unavailable Nuris FAUSTIN MD Unavailable Unavailable Nuris FAUSTIN MD Unavailable Unavailable Nuris FAUSTIN MD Unavailable Unavailable Nuris FAUSTIN MD Unavailable Unavailable Nuris FAUSTIN MD Unavailable Unavailable Nuris FAUSTIN MD Unavailable Unavailable Nuris FAUSTIN MD Unavailable Unavailable Nuris FAUSTIN MD Unavailable Unavailable Nuris FAUSTIN MD Unavailable Unavailable Nuris FAUSTIN MD Unavailable Unavailable Nuris FAUSTIN MD Unavailable Unavailable Nuris FAUSTIN MD Unavailable Unavailable Nuris FAUSTIN MD Unavailable Unavailable Nuris FAUSTIN MD Unavailable Unavailable Nuris FAUSITN MD Unavailable Unavailable WICKERT, FILIBERTO CUSTOMER ACQUISITION SPECIALIST Unavailable Unavailable WICKERT, FILIBERTO CUSTOMER ACQUISITION SPECIALIST Unavailable Unavailable WICKERT, FILIBERTO CUSTOMER ACQUISITION SPECIALIST Unavailable Unavailable WICKERT, FILIBERTO CUSTOMER ACQUISITION SPECIALIST Unavailable Unavailable WICKERT, FILIBERTO CUSTOMER ACQUISITION SPECIALIST Unavailable Unavailable WICKERT, FILIBERTO CUSTOMER ACQUISITION SPECIALIST Unavailable Unavailable WICKERT, FILIBERTO CUSTOMER ACQUISITION SPECIALIST Unavailable Unavailable WICKERT, FILIBERTO CUSTOMER ACQUISITION SPECIALIST Unavailable Unavailable WICKERT, FILIBERTO CUSTOMER ACQUISITION SPECIALIST Unavailable Unavailable WICKERT, FILIBERTO CUSTOMER ACQUISITION SPECIALIST Unavailable Unavailable WICKERT, FILIBERTO CUSTOMER ACQUISITION SPECIALIST Unavailable Unavailable WICKERT, FILIBERTO CUSTOMER ACQUISITION SPECIALIST Unavailable Unavailable WICKERT, FILIBERTO CUSTOMER ACQUISITION SPECIALIST Unavailable Unavailable WICKERT, FILIBERTO CUSTOMER ACQUISITION SPECIALIST Unavailable Unavailable WICKERT, FILIBERTO CUSTOMER ACQUISITION SPECIALIST Unavailable Unavailable WICKERT, FILIBERTO CUSTOMER ACQUISITION SPECIALIST Unavailable Unavailable WICKERT, FILIBERTO CUSTOMER ACQUISITION SPECIALIST Unavailable Unavailable WICKERT, FILIBERTO CUSTOMER ACQUISITION SPECIALIST Unavailable Unavailable WICKERT, FILIBERTO CUSTOMER ACQUISITION SPECIALIST Unavailable Unavailable WICKERT, FILIBERTO CUSTOMER ACQUISITION SPECIALIST Unavailable Unavailable WICKERT, FILIBERTO CUSTOMER ACQUISITION SPECIALIST Unavailable Unavailable WICKERT, FILIBERTO CUSTOMER ACQUISITION SPECIALIST Unavailable Unavailable WICKERT, FILIBERTO CUSTOMER ACQUISITION SPECIALIST Unavailable Unavailable WICKERT, FILIBERTO CUSTOMER ACQUISITION SPECIALIST Unavailable Unavailable WICKERT, FILIBERTO CUSTOMER ACQUISITION SPECIALIST Unavailable Unavailable WICKERT, FILIBERTO CUSTOMER ACQUISITION SPECIALIST Unavailable Unavailable WICKERT, FILIBERTO CUSTOMER ACQUISITION SPECIALIST Unavailable Unavailable WICKERT, FILIBERTO CUSTOMER ACQUISITION SPECIALIST Unavailable Unavailable WICKERT, FILIBERTO CUSTOMER ACQUISITION SPECIALIST Unavailable Unavailable Re-disclosure Warning The records that you are about to access may contain information from federally-assisted alcohol or drug abuse programs. If such information is present, then the following federally mandated warning applies: This information has been disclosed to you from records protected by federal confidentiality rules (42 CFR part 2). The federal rules prohibit you from making any further disclosure of this information unless further disclosure is expressly permitted by the written consent of the person to whom it pertains or as otherwise permitted by 42 CFR part 2. A general authorization for the release of medical or other information is NOT sufficient for this purpose. The Federal rules restrict any use of the information to criminally investigate or prosecute any alcohol or drug abuse patient.The records that you are about to access may contain highly sensitive health information, the redisclosure of which is protected by Article 27-F of the [facility] Public Health law. If you continue you may have access to information: Regarding HIV / AIDS; Provided by facilities licensed or operated by the [facility] Office of Mental Health; or Provided by the [facility] Office for People With Developmental Disabilities. If such information is present, then the following [facility] mandated warning applies: This information has been disclosed to you from confidential records which are protected by state law. State law prohibits you from making any further disclosure of this information without the specific written consent of the person to whom it pertains, or as otherwise permitted by law. Any unauthorized further disclosure in violation of state law may result in a fine or long-term sentence or both. A general authorization for the release of medical or other information is NOT sufficient authorization for further disc losure. Family History Family Member Name Family Member Gender Family Member Status Date o f Status Description Data Source(s) Unknown Unknown Problem [facility] ([facility], ) Encounters Encounter Providers Location Date Indications Data Source(s ) Ben Jackson MD: [address] [place] [address] [id number], Ph. Attender: Ben Jackson MD [facility] Medical 05/30/2020 12:00:00 AM EST [facility] ([facility]) Outpatient Attender: Ben Jackson MD FP 03/09/2020 10:56:00 AM EST [facility] Outpatient Attender: TOBIAS MONGE [facility] 02/03 08:45:00 AM EDT [facility] ([facility] Outpatient Attender: Ben Jackson MD FP 12/21/2019 10:08:00 AM EDT [facility] Outpatient Attender: Ben Jackson MD FP 12/20/2019 02:41:00 PM EDT [facility] Outpatient Attender: FILIBERTO COCHRAN CUSTOMER ACQUISITION SPECIALIST 12/09/2019 01:57:52 PM EDT [facility] Outpatient Attender: FILIBERTO COCHRAN CUSTOMER ACQUISITION SPECIALIST 12/09/2019 12: 33:00 PM EDT [facility] Outpatient Attender: Ben Jackson MD FP 11/02/2019 04:53:00 PM EDT [facility] Outpatient Attender: Ben Jackson MD FP 10/16/2019 03:46:00 PM EDT [facility] Outpatient Attender: Ben Jackson MD FP 10/12/2019 07:37:35 PM EDT [facility] Outpatient Attender: Ben Jackson MD FP 10/04/2019 09:34:04 AM EDT [facility] Outpatient Attender: Ben Jackson MD FP 10/01/2019 12:48:02 PM EDT [facility] Outpatient Attender: Ben Jackson MD FP 10/01/2019 09:27:00 AM EDT [facility] Outpatient Attender: Ben Jackson MD FP 10/01/2019 09:26:01 AM EDT [facility] Outpatient Attender: Ben Jackson MD FP 09/30/2019 11:53:02 AM EDT [facility] Outpatient Attender: Ben Jackson MD FP 09/28/2019 03:15:00 PM EDT [facility] Outpatient Attender: Ben Jackson MD FP 09/24/2019 05:38:02 PM EDT [facility] Outpatient Attender: Ben Jackson MD FP 09/24/2019 05:37:01 PM EDT [facility] Outpatient Attender: Ben Jackson MD FP 09/24/2019 05:18:00 PM EDT [facility] Outpatient Attender: Ben Jackson MD FP 09/24/2019 04:58:00 PM EDT [facility] Outpatient Attender: Ben Jackson MD FP 09/24/2019 04:41:01 PM EDT [facility] Outpatient Attender: Ben Jackson MD FP 09/14/2019 11:33:01 AM EDT [facility] Outpatient Attender: TOBIAS MONGE [facility] 09/02 09:15:00 AM EDT [facility] ([facility] Outpatient Attender: JONATHAN FAUSTIN MD 09/01/2019 09:19:01 A M EDT [facility] Outpatient Attender: Sera Santana [facility]-CUSTOMER ACQUISITION SPECIALIST [facility] 08/27/2019 02:00:00 AM EDT - 08/27/2019 02:00:00 AM EDT [facility] ([facility] Attender: Sera Santana [facility]-CUSTOMER ACQUISITION SPECIALIST 08/27/2019 12: 00:00 AM EDT [facility] ([facility]) Outpatient Attender: JONATHAN FAUSTIN MD 08/19/2019 10:00:02 A M EDT [facility] Outpatient Attender: JONATHAN FAUSTIN MD 07/15/2019 12:50:00 P M T [facility] Outpatient Attender: JONATHAN FAUSTIN MD 06/24/2019 12:51:03 P M [facility] Outpatient Attender: JONATHAN FAUSTIN MD 06/18/2019 05:36:01 P M [facility] Outpatient Attender: JONATHAN FAUSTIN MD 06/18/2019 05:35:03 P M [facility] Outpatient Attender: JONATHAN FAUSTIN MD 06/18/2019 05:05:01 P M [facility] Outpatient Attender: Chandrakant Lemus [facility] 0 06/01/2019 02:45:00 AM EST - 06/01/2019 02:45:00 AM EST [facility] ([facility]) Attender: Chandrakant Lemus 06/01/2019 12:00:00 AM EST [facility] ([facility]) Outpatient Attender: JONATHAN FAUSTIN MD 05/29/2019 10:50:00 A [facility] Outpatient Attender: JONATHAN FAUSTIN MD 05/29/2019 10:47:01 A [facility] Outpatient Attender: JONATHAN FAUSTIN MD 05/29/2019 10:12:02 A [facility] Outpatient Attender: JONATHAN FAUSTIN MD 05/29/2019 10:12:00 A [facility] Outpatient Attender: JONATHAN FAUSTIN MD 05/29/2019 07:58:00 A [facility] Outpatient Attender: JONATHAN FAUSTIN MD 05/26/2019 09:15:01 A [facility] Outpatient Attender: TOBIAS MONGE [facility] 05/06 02:15:00 PM EST [facility] ([facility] Outpatient Attender: JONATHAN FAUSTIN MD 05/25/2019 12:41:03 P [facility] Outpatient Attender: JONATHAN FAUSTIN MD 05/25/2019 12:41:03 P [facility] Outpatient Attender: JONATHAN FAUSTIN MD 05/20/2019 09:36:00 A [facility] Outpatient Attender: JONATHAN FAUSTIN MD 05/18/2019 10:57:01 A [facility] Outpatient Attender: JONATHAN FAUSTIN MD 04/20/2019 10:18:00 A [facility] Outpatient Attender: Chandrakant Lemus [place] [id number] 06/20/2018 03:45:00 AM EST - 04/19/2019 03:45:00 AM EST [facility] ([facility]) Attender: Chandrakant Lemus 04/19/2019 12:00:00 AM EST [facility] ([facility]) Outpatient Attender: JONATHAN FAUSTIN MD 04/15/2019 02:51:01 P [facility] Functional Status Medications Medication Brand Name Start Date Product Form Dose Route Admi nistrative Instructions Pharmacy Instructions Status Indications Reaction Description Data Source(s) gabapentin 600 MG Oral Tablet Gabapentin 02/10/2020 12:00:00 AM EDT ORAL active [facility] ([facility]) Ibuprofen 600 MG Oral Tablet Ibuprofen 02/10/2020 12:00:00 AM EDT ORAL active [facility] ([facility]) No Active Medications 02/10/2020 12:00:00 AM EDT completed [facility] ([facility]) Ibuprofen 200 MG Oral Tablet Ibuprofen 02/10/2020 12:00:00 AM EDT ORAL completed [facility] ([facility]) Omeprazole 20 MG Delayed Release Oral Capsule Omeprazole 02/10/2020 12:00:00 AM EDT ORAL active [facility] ([facility]) Acetaminophen 325 MG / Hydrocodone Bitartrate 10 MG Or al Tablet Hydrocodone Bitartrate/Acetaminophen 09/14/2019 12:00:00 AM EDT active [facility] ([facility] Buprenorphine 8 MG / Naloxone 2 MG Oral Strip buprenorphine- naloxone 08/27/2019 12:00:00 AM EDT mg completed [id number] bupr enorphine-naloxone under tongue 08/27/2019 twice a day 8-2 mg film [id number] Sera Santana [id number] [facility] ([facility]) Buprenorphine 8 MG / Naloxone 2 MG Oral Strip buprenorphine- naloxone 08/24/2019 12:00:00 AM EDT mg completed [id number] bupr enorphine-naloxone under tongue 08/24/2019 08/27/2019 twice a day 8-2 mg film [id number] Sera Santana [id number] [facility] ([facility]) Acetaminophen 325 MG / Hydrocodone Bitartrate 10 MG Or al Tablet Hydrocodone-Acetaminophen 07/16/2019 12:00:00 AM EDT active [facility] ([facility] Acetaminophen 325 MG / Hydrocodone Bitartrate 10 MG Or al Tablet Hydrocodone-Acetaminophen 06/28/2019 12:00:00 AM EST completed [facility] ([facility] duloxetine 60 MG Delayed Release Oral Capsule duloxetine 06/01/2019 12:00:00 AM EST 60 mg completed [id number] duloxetine 0 06/01/2019 07/31/2019 every morning 30 60 mg capsule,delayed release(DR/EC) [id number] Chandrakant Lemus [id number] [facility] ([facility]) Acetaminophen 325 MG / Hydrocodone Bitartrate 10 MG Or al Tablet Hydrocodone Bitartrate/Acetaminophen 05/25/2019 12:00:00 AM EST ORAL completed [facility] ([facility] Buprenorphine 8 MG / Naloxone 2 MG Oral Strip [Suboxone] Sub oxone 03/23/2019 12:00:00 AM EST mg completed [id number] Suboxone un noemi tongue 03/23/2019 07/01/2019 twice a day 30 8-2 mg film [id number] Chandrakant Lemus [id number] [facility] ([facility]) Doxycycline Monohydrate 100 MG Oral Caps ule doxycycline monohydrate 100 mg capsule doxycycline monohydrate 100 mg capsule completed doxycycline monohydrate 100 MG Oral Capsule [facility] ([facility]) Doxepin Hydrochloride 25 MG Oral Capsule doxepin 25 mg capsule doxepin 25 mg capsule completed doxepin hydroc hloride 25 MG Oral Capsule [facility] ([facility]) Buprenorphine 8 MG / Naloxone 2 MG Oral Strip buprenorphine 8 mg-naloxone 2 mg sublingual film buprenorphine 8 mg-naloxone 2 mg sublingual film completed buprenorphine 8 MG / naloxone 2 MG Sublingual Film [facility] ([facility]) duloxetine 60 MG Delayed Release Oral Ca psule duloxetine 60 mg capsule,delayed release duloxetine 60 mg capsule,delayed release completed duloxetine 60 MG Delayed Release Oral Capsule [facility] ([facility]) Trazodone Hydrochloride 50 MG Oral Tablet trazodone 50 mg tablet trazodone 50 mg tablet completed trazodone hydr ochloride 50 MG Oral Tablet [facility] ([facility]) Docusate Sodium 100 MG Oral Capsule [DOK] DOK 100 mg capsule DOK 100 mg capsule completed docusate sodiu m 100 MG Oral Capsule [DOK] [facility] ([facility]) Omeprazole 40 MG Delayed Release Oral Ca psule omeprazole 40 mg capsule,delayed release omeprazole 40 mg capsule,delayed release completed omeprazole 40 MG Delayed Release Oral Capsule [facility] ([facility]) Insurance Providers Payer name Policy type / Coverage type Policy ID Covered alliance party ID Covered alliance party's relationship to ballesteros Policy [place] Plan Information [facility] COMMUNITY PLAN MCDHMO [id number] SP [id number] Managed Care [facility] Community Plan P [id number] S [id number] Medicaid S [id number] S [id number] [facility] HEA [id number] S [id number] MEDICAID [id number] SP [id number] Managed Care - [facility] Community Plan P [id number] S [id number] Medicaid S [id number] S [id number] [facility] Plan Medicaid F [id number] SELF [id number] [facility] Maintenance Organization (HMO) [id number] Self [id number] [facility] Hmo Commercial [id number] Self [id number] [facility] Hmo Commercial [id number] Self [id number] Managed Care - Community Plan [employer] P [id number] S [id number] United Healthcare Hmo Commercial [id number] Self [id number] [facility] Hmo Commercial [id number] Self [id number] [facility] Hmo Commercial [id number] Self [id number] Managed Care - Community Plan [employer] P [id number] S [id number] Medicaid S [id number] United [employer] Hmo Commercial [id number] Self [id number] 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 [id number] SP [id number] United [employer] Hmo Commercial [id number] Self [id number] United [employer] Hmo Commercial [id number] Self [id number] United [employer] Hmo Commercial [id number] Self [id number] [facility] Hmo Commercial [id number] Self [id number] United [employer] Hmo Commercial [id number] Self [id number] United [employer] Hmo Commercial [id number] Self [id number] United [employer] Hmo Commercial [id number] Self [id number] [facility] Hmo Commercial [id number] Self [id number] Managed Care - Community Plan [employer] P [id number] S [id number] ANSI-Medicaid [id number] Managed Care - Community Plan [facility] P [id number] S [id number] UN[employer] COMMUNITY PLAN MCDHMO [id number] SP [id number] UNHC COMMUNITY PLAN MCDHMO [id number] SP [id number] [facility] O [id number] S [id number] [facility] Hmo Commercial [id number] Self [id number] Managed Care - Community Plan [facility] P [id number] S [id number] Medicaid S [id number] S [id number] [facility] Hmo Commercial [id number] Self [id number] SELF PAY ONLY UNAVAILABLE SP UNAV AILABLE SELF PAY UNAVAILABLE UNAVAILA BLE [facility] SYDNI [id number] SP [id number] Managed Care - Community Plan [facility] P [id number] S [id number] Medicaid S [id number] S [id number] Managed Care - Community Plan [facility] P [id number] S [id number] Self Pay P [id number] S [id number] Self Pay P UNAVAILABLE S UNAVAILA BLE Managed Care - Community Plan [facility] P [id number] S [id number] Medicaid S [id number] S [id number] Managed Care - Community Plan [facility] P [id number] S [id number] [employer] [id number] SP [id number] [facility] DSS [id number] SP [id number] [place] PPO 302/[id number] [employer] [id number] SP [id number] [facility] 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 O [id number] S [id number] Managed Care BCBS O [id number] S [id number] D Managed Care [facility] O [id number] S [id number] Medicaid Dental O [id number] S [id number] Medicaid S [id number] S [id number] [employer] PLAN [id number] SP [id number] HMO BLUE [id number] SP [id number] Problems, Conditions, and Diagnoses Code Display Name Description Problem Type Effective Dates Data Source(s) 155427788 SNOMED CT Concept SNOMED CT Concept Problem 02/16 04:46:15 PM EDT [facility] ([facility]) 682210695 Arthropathy Arthropathy Problem 02/17/2020 04:46:15 PM EDT [facility] ([facility]) 42529482 Depressive disorder Depressive Disorder Problem 1 04:46:15 PM EDT [facility] ([facility]) 26600678 Viral hepatitis C Viral Hepatitis C Problem 02/17/2020 04:46:15 PM EDT [facility] ([facility]) 35893861 Opioid dependence, in remission Opioid dependence, in remission 09/24/2019 05:36:26 PM EDT [facility] 404439006 Opioid dependence in remission Opioid Dependence in Re mission Problem 09/24/2019 12:00:00 AM EDT [facility] ([facility]) F11.20 Opioid dependence, uncomplicated Opioid Use Disorder, Severe Condition 08/27/2019 12:00:00 AM EDT [facility] ([facility]) F33.42 Major depressive disorder, recurrent, in full remission Major Depressive Disorder, Recurrent episode, In full remission Condition 020 12:00:00 AM EDT [facility] ([facility]) 724.1 Acute thoracic back pain Acute thoracic back pain 06/18/2019 05:34:55 PM EST [facility] 455.3 External hemorrhoids External hemorrhoids 06/18 05:34:55 PM EST [facility] 093211800 Pain in thoracic spine Pain in Thoracic Spine Problem 06/18/2019 12:00:00 AM EST [facility] ([facility]) 52632541 Residual hemorrhoidal skin tags Residual Hemorrh oidal Skin Tags Problem 06/18/2019 12:00:00 AM EST [facility] ([facility]) 91092567 Osteochondropathy Osteochondropathy Problem 06/05/2019 12:00:00 AM EST [facility] ([facility] 051640706 Nonunion of fracture Nonunion of fracture Problem 06/05/2019 12:00:00 AM EST [facility] ([facility] 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 05/29/2019 10:11:58 AM EST [facility] 088.81 Other conditions associated with Lyme di sease Other conditions associated with Lyme disease 05/29/2019 10:11:58 AM EST [facility] 161928472 Borreliosis Borreliosis Problem 05/29/2019 12:00:00 AM EST [facility] ([facility]) 33737141 Hypopituitarism Hypopituitarism Problem 05/29/2019 12:0 0:00 AM EST [facility] ([facility]) 75229496 Osteochondropathy Osteochondropathy Problem 03/23 12:00:00 AM EST - 06/05/2019 12:00:00 AM EST [facility] ([facility] 53406522 Osteochondropathy Osteochondropathy Problem 03/23 12:00:00 AM EST - 06/05/2019 12:00:00 AM EST [facility] ([facility] Surgeries/Procedures Procedure Description Date Indications Data Source(s) Electrocardiogram Interpretation & Report Only 020 12:00:00 AM EDT [facility] ([facility]) RADEX FOOT COMPLETE MINIMUM 3 VIEWS 09/14/2019 12:00:0 0 AM EDT [facility] ([facility] RADEX FOOT COMPLETE MINIMUM 3 VIEWS 09/14/2019 12:00:0 0 AM EDT [facility] ([facility] MHC Telemed E/M Lvl 3--Est pt 08/27/2019 12:00:00 AM EDT - 08/27/2019 12:00:00 AM EDT [facility] ([facility]) Telemed A/O 30" 08/27/2019 12:00:00 AM EDT [facility] ([facility]) MHC Telemed E/M Lvl 3--Est pt 08/27/2019 12:00:00 AM E DT [facility] ([facility]) OFFICE OUTPATIENT VISIT 10 MINUTES 06/01 12:00:00 AM EST - 06/01/2019 12:00:00 AM EST [facility] ([facility]) OFFICE OUTPATIENT VISIT 10 MINUTES 06/01/2019 12:00:00 AM EST [facility] ([facility]) RADEX FOOT COMPLETE MINIMUM 3 VIEWS 05/25/2019 12:00:0 0 AM EST [facility] ([facility] OFFICE OUTPATIENT VISIT 15 MINUTES 04/19 12:00:00 AM EST - 04/19/2019 12:00:00 AM EST [facility] ([facility]) OFFICE OUTPATIENT VISIT 15 MINUTES 04/19/2019 12:00:00 AM EST [facility] ([facility]) Results ID Date Data Source [id number] 12/14/2019 09:34:10 PM EDT Lab [facility] Name Value Range Interpretation Code Description Data Mamie rce(s) Supporting Document(s) HCV QUANT BY NAAT Lab [facility] <10 DetectedUnit: IU/mL HCV QUANT BY NAAT <1.00 Lab [facility] Unit: log IU/mL HCV RNA detected, but at a level below 10 IU/mL. HCV RNA concentration is below the Lower Limit of Quantification of the assay. HCV QNT NAAT INTERP Lab [facility] DetectedReference range: Not Detected IN TERPRETIVE INFORMATION: HCV by Quantitative NAAT Normal range for this assay is "Not Detected". The quantitative range of this assay is 10 - 100,000,000 IU/mL (1.0 - 8.0 log IU/mL). Lower limit of quantitation (LLoQ): 10 IU/mL (1.0 log IU/mL) LLoQ values do not apply to diluted specimens. A result of "Not Detected" does not rule out the presence of inhibitors in the patient specimen or hepatitis C virus RNA concentrations below the level of detection of the test. Care should be taken when interpreting any single viral load determination. This test should not be used for blood donor screening, associated re-entry protocols, or for screening Human Cell, Tissues and Cellular Tissue-Based Products (HCT/P). Performed by [facility], [address] [place] [id number] [email or web address], Tyler Hwang MD, Lab. Director ID Date Data Source [id number] 12/09/2019 07:14:11 PM EDT [facility] Name Value Range Interpretation Code Description Data Mamie rce(s) Supporting Document(s) HEPATITIS B S AG @ (NEG) [facility] ID Date Data Source [id number] 12/09/2019 02:17:50 PM EDT [facility] Name Value Range Interpretation Code Description Data Mamie rce(s) Supporting Document(s) SODIUM 139 mmol/L (136-145) [facility] POTASSIUM 3.9 mmol/L (3.6-5.2) [facility] CHLORIDE 104 mmol/L (100-108) [facility] CO2 29 mmol/L (22-31) [facility] ANION GAP 6 mmol/L (7-16) L [facility] UREA NITROGEN 22 mg/dL (7-24) [facility] CREATININE 0.93 mg/dL (0.80-1.30) [facility] BUN/CREAT RATIO 23.7 RATIO (10.0-20.0) H [facility] GLUCOSE 105 mg/dL (70-99) H [facility] CALCIUM 8.8 mg/dL (8.4-10.2) [facility] TOTAL PROTEIN 7.7 g/dL (6.4-8.2) [facility] ALBUMIN 3.9 g/dL (3.5-4.6) [facility] GLOBULIN 3.8 g/dL (2.7-4.3) [facility] ALB/GLOB RATIO 1.0 RATIO [facility] ALKALINE PHOSPHATASE 95 U/L (45-117) [facility] BILIRUBIN,TOTAL 1.0 mg/dL (0.0-1.0) [facility] PLEASE NOTE:Total bilirubin results may be falselyelevated in patients taking Eltrombopag. AST (SGOT) 16 U/L (11-39) [facility] ALT (SGPT) 21 U/L (12-78) [facility] GFR >60 ml/min/1.73m2 (>59) [facility] GFR ( AMER) >60 ml/min/1.73m2 (>59) [facility] GFR INTERPRETATION [facility] --NORMAL KIDNEY FUNCTION OR MILD DISEASE - GFR >OR= 60CHRONIC KIDNEY DISEASE - GFR 15 - 59RENAL FAILURE - GFR <15 Est. GFR calculation based on the MDRDstudy equation, which assumes a steadystate for creatinine. Est. GFR should notbe used for medication dosing. ID Date Data Source [id number] 12/09/2019 02:01:40 PM EDT [facility] Name Value Range Interpretation Code Description Data Mamie rce(s) Supporting Document(s) WBC 5.4 10*3/uL (4.1-11.0) [facility] RBC 4.42 10*6/uL (4.60-6.10) L [facility] HGB 13.1 g/dL (13.5-18.0) L [facility] HCT 39.6 % (41.0-53.0) L [facility] PERFORMED AT [address] [place] [address] MCV 89.4 fL (80.0-95.0) [facility] MCH 29.7 pg (27.0-32.0) [facility] MCHC 33.2 g/dL (32.0-36.0) [facility] RDW 14.6 % (10.5-14.5) H [facility] PLT 220 10*3/uL (150-450) [facility] MPV 6.7 fL (7.1-10.7) L [facility] NEUT % 59.7 % (35.0-75.0) [facility] LYMPH % 25.8 % (16.0-52.0) [facility] MONO % 12.2 % (0.0-8.0) H [facility] EOS % 1.5 % (0.0-5.0) [facility] BASO % 0.8 % (0.0-4.0) [facility] NEUT # 3.2 10*3/uL (1.8-7.7) [facility] LYMPH # 1.4 10*3/uL (1.2-4.8) [facility] MONO # 0.7 10*3/uL (0.0-0.8) [facility] Eosinophils [#/volume] in Blood by Automated count 0.1 10*3/uL (0.0-0 .5) [facility] BASO # 0.0 10*3/uL (0.0-0.2) [facility] ID Date Data Source [id number] 12/09/2019 01:57:51 PM EDT [facility] Name Value Range Interpretation Code Description Data Mamie rce(s) Supporting Document(s) COLOR [facility] PERFORMED AT [address] [place] [address] APPEARANCE [facility] SPEC GRAV URINE 1.030 (1.003-1.030) [facility] PH URINE 5.5 (5.0-7.5) [facility] LEUK ESTERASE (NEG) [facility] NITRITE URINE (NEG) [facility] PROTEIN URINE (NEG) [facility] GLUCOSE URINE (NEG) [facility] KETONE URINE (NEG) [facility] UROBILINOGEN 1.0 mg/dL (0-1.0) [facility] BILIRUBIN URINE 1+ (NEG) A [facility] INTERFERING SUBSTANCES MAY CAUSE FALSEPO SITIVE BILIRUBIN, WHICH HAS BEENSHOWN TO BE CLINICALLY INSIGNIFICANT.CORRELATE WITH OTHER TESTING. BLOOD/HGB URINE (NEG) [facility] ID Date Data Source [id number] 10/12/2019 12:40:00 PM EDT [facility] Name Value Range Interpretation Code Description Data Mamie rce(s) Supporting Document(s) SARS CORONAVIRUS 2 RNA [facility] This lab was ordered by [facility] and reported by [facility]. ID Date Data Source [id number] 09/24/2019 04:40:33 PM EDT [facility] Measurements & CalculationsHeight: 71 inches (5 ft. 11 in.) 180.34 cm Weight: 216 pounds 98.18 kg Body Mass Index (BMI): 30.23BMI Interpretation: ObeseBody Surface Area (BSA): 2.18Vital SignsTemperature: 97.6F 36.44C tympanic Pulse Rate: 76 beats/minuteRespiratory Rate: 16 respirations/minuteBlood Pressure: 149/83 left arm sitting automaticVital Signs performed by: Marsha Schultz , September 24, 2019 4:50 PMVital Signs performed by: Marsha Schultz , September 24, 2019 4:50 PMInitial Intake Information From: patientRoom #: 15Infectious Disease / Travel ScreeningRecent travel for you or any close contacts? NoHave you had any close contact with anyone diagnosed with or under investigation for COVID-19 (coronavirus)? NoFever? NoRespiratory symptoms: cough, cold, congestion, shortness of breath, difficulty breathing? NoLoss of smell? NoLoss of taste? NoSmoking, Tobacco, Vaping or Smoke Exposure StatusSmoke Status: current every day smokerTobacco Use: YesAdv to Quit: YesDo you vape? NoPassive Smoke Exposure: YesHealthcare HistorySince your last office visit...Have you been admitted to the hospital? NoHave you been to an emergency room (ER) or urgent care clinic? NoHave you seen another healthcare provider? NoHave you seen a dentist? NoIntake performed by: Marsha Schultz , September 24, 2019 4:44 PMRate Your HealthIn general, would you say your health is? FairPain AssessmentAre you currently having any pain which... You would like your provider to address? No Affects your activity level? NoDepression Screening - PHQ-2Over the last two weeks, have you... Had little interest or pleasure in doing things? Nearly every day Been feeling down, depressed, or hopeless? Nearly every day PHQ-2 Score: 6Anxiety Screening - BANDAR-2Over the last two weeks, have you been... Feeling nervous, anxious, or on edge? Nearly every day Unable to stop or control worrying? Nearly every day BANDAR-2 Score: 6Generalized Anxiety Disorder 7- Item Screening (BANDAR-7)Answer Guide:0 = Not at all1 = Several days2 = Over half the days3 = Nearly every dayOver the last 2 weeks, how often have you been bothered by the following problems?Feeling nervous, anxious, or on edge: 3Not being able to stop or control worryinWorrying too much about different things: 3Trouble relaxinBeing so restless that it's hard to sit still: 3Becoming easily annoyed or irritable: 3Feeling afraid as if something awful might happen: 3Answer Guide:0 = Not difficult at all1 = Somewhat difficult2 = Very difficult3 = Extremely difficultHow difficult have these made it for you to do your work, take care of things at home, or get along with other people? 3GAD-7 Screening Results BANDAR-2 Score: 6GAD-7 Score: 21Functional Impairment: Extremely difficultRecommendation: Severe anxietyPHQ-9 1. Over the last 2 weeks, patient reports the following frequency of symptoms: a. Little interest or pleasure in doing things -Nearly every day b. Feeling down, depressed, or hopeless -Nearly every day c. Trouble falling asleep, staying asleep, or sleeping too much -Nearly every day d. Feeling tired or having little energy -Nearly every day e. Poor appetite or overeating -Nearly every day f. Feeling bad about yourself, feeling that you are a failure, or feeling that you have let yourself or your family down -Nearly every day g. Trouble concentrating on things such as reading the newspaper or watching television -Nearly every day h. Moving or speaking so slowly that other people could have noticed. Or being so fidgety or restless that you have been moving around a lot more than usual -Nearly every day i. Thinking that you would be better off or that you want to hurt yourself in some way -Not at all2. If you checked off any problems, how difficult have these problems made it for you to do your work, take care of things at home, or get along with other people? -Extremely DifficultToday's PHQ-9 Results Score: 24 Severity: Severe Diagnosis Recommendation: Major Depression Functional Impairment: Extremely DifficultScreening, Brief Intervention, & Referral to Treatment (SBIRT)Pre-Screening Questions How many times have you have 5 or more drinks in a day? 0How many times have you used an illegal drug or used a prescription medication for a non-medical reason? 14Performed by: Marsha Schultz , September 24, 2019 4:47 PMDAST Have you used drugs other than those required for medical reasons? Yes Do you abuse more than one drug at a time? No Are you always able to stop using drugs when you want to? No Have you ever had blackouts or flashbacks as a result of drug use? No Do you ever feel bad or guilty about your drug use? Yes Does your spouse (or parents) ever complain about your involvement with your drugs? Yes Have you neglected your family because of your use of drugs? Yes Have you engaged in illegal activities in order to obtain drugs? Yes Have you ever experienced withdrawal symptoms (felt sick) when you stopped taking drugs? Yes Have you had medical problems as a result of your drug use (e.g. memory loss, hepatitis, convulsions, bleeding)? YesToday's Results: DAST Score: 8 DAST Interpretation: Referral to Treatment Performed by: Marsha Schultz , September 24, 2019 4:48 PMPatient History Medical History:Anxiety DisorderDepressionHepatitis COsteoarthritisLyme DiseaseSurgical History:RT lower leg painFamily History:FH of AnxietyFH Breast CancerFH DepressionFH DiabetesFH HeadachesFH Psychiatric CareSocial/Personal History:Smoking History:Patient cur rently smokes every day.Patient has been counseled to quit. Advised to Quit/Tobacco Education: YesChief Complaintfollow-up visit- new CT order, hemorrhoidsHistory of Present Illness (HPI)Most pressing issue is his Suboxone. Has been getting this from [facility] for the past several years. They told him 2 weeks ago that they were no longer prescribing this medication there and that he would have to transition to [facility] for this. He spoke with [facility] and they sent in a couple weeks of this for him and he has since run out of this. He decided that he did not want to participate in a program there where he would have to call in every day for his color to see if he had to come in. I explained that this is a standard part of any MAT progrma and that we will call people in on any day and have them come in for a same day urine. He has been using heroin since running out of this but 'just to stop myself from going into withdrawal.' We discuss how risky this is for potentially fatal overdose given he has recently gone back to using this and there is a lot of Fentanyl out there so he can not be too confident in his dose. His last compromised urine was either 3 months ago or 5 months ago. We have a singed release for [facility] but because it is late Friday afternoon we are unable to get either their records or talk to [facility].HPI performed by: Ben Jackson MD, September 24, 2019 5:28 PMProblem ReviewProblem List was reviewed and/or updated during this visit.Medication Reconciliation & ReviewMedication List was reviewed and/or updated during this visit, including review of any czap-rdl-virgylc medications, herbal therapies, and/or supplements.Allergy ReviewAllergy List was reviewed and/or updated during this visit.Adult Preventive CareProvider Calculated and Reviewed all Clinical Protocols for patient today. Screening Tobacco Screening: Smoking Status: current every day smoker (09/24/2019) Tobacco Use: Currently (09/24/2019) Advised to Quit: Yes (09/24/2019)Review of Systems General: Denies dizziness, fatigue. Gastrointestinal: Denies constipation. Genitourinary: Denies incomplete emptying. Physical ExamGeneral Appearance: well nourished, well hydrated, no acute distressEyes, External: conjunctivae and lids normal, EOMIRespiratory, Auscultation: clear to auscultation bilaterally; no rales, rhonchi, or wheezesRespiratory, Effort: no intercostal retractions or use of accessory musclesCardiovascular, Auscultation: S1, S2 audible; no murmur, rub, or gallop; RRROrientation: oriented to time, place, and personMood & Affect: Somewhat agitated.Judgment & Insight: intactRate Your HealthIn general, would you say your health is? FairAssessment & Plan Problems:Added: Opioid dependence, in remission (QEB60-V60.21) Assessment: Instructions: I am reluctant to start prescribing Suboxone here without more information from [facility] and [facility] about his recent clinical course. However I am more worried now that he has just started using heroin of a potentially fatal overdose (see HPI.) I am sending in a week's worth of this and bringing him back in one week. He knows that he needs to go to the hospital lab [facility] to leave a urine drug screen.I am going to have Derrick Bowles reach out to him next week to discuss the next step, whether to do an MAT intake here or see if [facility] thinks he needs the higher level of care here.I am concerned that the patient will not accept the terms of starting an MAT program here or at [facility]. He does not like the idea of weekly appointments starting out or the fact he may be asked to give a random urine on any given day. I have explained that this is pretty typical anytime we take a patient that is new to our MAT program in and this is especially important if someone has relapsed which he has.Patient Instructions/Care Plan: Opioid dependence- in remission: I am reluctant to start prescribing Suboxone here without more information from [facility] and [facility] about his recent clinical course. However I am more worried now that he has just started using heroin again of a potentially fatal overdose (see HPI.) I am sending in a week's worth of this and bringing him back in one week. He knows that he needs to go to the hospital lab [facility] to leave a urine drug screen.I am going to have Derrick Bowles reach out to him next week to discuss the next step, whether to do an MAT intake here or see if [facility] thinks he needs the higher level of care here.I am concern ed that the patient will not accept the terms of starting an MAT program here or at [facility]. He does not like the idea of weekly appointments starting out or the fact he may be asked to give a random urine on any given day. I have explained that this is pretty typical anytime we take a patient that is new to our MAT program in and this is especially important if someone has relapsed which he has. Plan developed in collaboration with patient and/or familyMedications:DOXYCYCLINE MONOHYDRATE 100 MG ORAL CAPSULEGABAPENTIN 600 MG ORAL TABLETONDANSETRON HCL 8 MG ORAL TABLETCOLACE 100 MG ORAL CAPSULEIBUPROFEN 600 MG ORAL TABLETGABAPENTIN 300 MG ORAL CAPSULECHANTIX CONTINUING MONTH HEIDI 1 MG ORAL TABLETCHANTIX STARTING MONTH HEIDI 0.5 MG X 11 & 1 MG X 42 ORAL TABLETNEURONTIN 600 MG ORAL TABLETVENTOLIN HFA 108 (90 BASE) MCG/ACT INHALATION AEROSOL SOLUTIONTRAZODONE HCL 50 MG ORAL TABLETSAFETY-ALLY NEEDLE 18GBD LUER-DAYSI SYRINGE 25G X 1" 3 MLDEPO-TESTOSTERONE 200 MG/ML INTRAMUSCULAR SOLUTIONANDROGEL 40.5 MG/2.5GM (1.62%) TRANSDERMAL GELLOTRIMIN AF 1 % EXTERNAL CREAMSUBOXONE 8-2 MG SUBLINGUAL FILMHYDROCORTISONE 1 % EXTERNAL CREAMVITAMIN D (ERGOCALCIFEROL) 40481 UNIT ORAL CAPSULELOTRIMIN AF 2 % EXTERNAL POWDERIBUPROFEN 800 MG ORAL TABLETCVS OMEPRAZOLE 20 MG ORAL TABLET DELAYED RELEASEMedication Changes:Refilled:SUBOXONE 8-2 MG SUBLINGUAL FILM-use 1 film BID Qty: 14[Film] Refills: 0 Method: ElectronicHYDROCORTISONE 1 % EXTERNAL CREAM-Apply to upper chest qid Qty: 60[Tube] Refills: 1 Method: ElectronicAllergies:No Known Allergies (updated 11/24/2014) Orders:Urine Drug Screen- Pain Management Urine 13 Panel [CPT-[id number]] Adult - Ofc Vst, EST, Level III [CPT-[id number]] Medications:HYDROCORTISONE 1 % EXTERNAL CREAM (HYDROCORTISONE) Apply to upper chest qid #60[Tube] x 1 Route:EXTERNAL Entered and Authorized by: Ben Jackson MD Method used: Electronically to [facility]* (retail) [address] [place] [address] Note to Pharmacy: Route: EXT; RxID: [id number] 8-2 MG SUBLINGUAL FILM (BUPRENORPHINE HCL-NALOXONE HCL) use 1 film BID #14[Film] x 0 Route:SUBLINGUAL Entered and Authorized by: Ben Jackson MD Method used: Electronically to [facility]* ([employer]) [address] [place] [address] Note to Pharmacy: Route: SL; RxID: [id number] signed by Ben Jackson MD on 09/24/2019 at 5:36 PM Name Value Range Interpretation Code Description Data Mamie rce(s) Supporting Document(s) ID Date Data Source [id number] 06/18/2019 05:09:26 PM [facility] Measurements & CalculationsHeight: 71 inches (5 ft. 11 in.) 180.34 cm Weight: 225 pounds 4 oz. 102.39 kg Body Mass Index (BMI): 31.53BMI Interpretation: ObeseBody Surface Area (BSA): 2.22Weight Management Education Done (Nutrition/Physical Activity)Vital SignsTemperature: 98.8FPulse Rate: 86 beats/minuteRespiratory Rate: 14 respirations/minuteBlood Pressure: 118/78 Vital Signs performed by: Nory Duvall, June 18, 2019 5:11 PMVital Signs performed by: Nory Duvall, June 18, 2019 5:11 PMInitial Intake Information from: patientRoom #: 12Smoking, Tobacco, Vaping or Smoke Exposure StatusSmoke Status: current every day smokerTobacco Use: YesAdv to Quit: YesDo you vape? NoPassive Smoke Exposure: YesHealthcare HistorySince your last office visit...Have you been admitted to the hospital? NoHave you been to an emergency room (ER) or urgent care clinic? NoHave you seen another healthcare provider? Yes - [facility]Have you seen a dentist? Yes - [facility] performed by: Nory Duvall, June 18, 2019 5:12 PMRate Your HealthIn general, would you say your health is? GoodPain AssessmentAre you currently having any pain which... You would like your provider to address? No Affects your activity level? NoDepression Screening - PHQ-2Over the last two weeks, have you... Had little interest or pleasure in doing things? Not at all Been feeling down, depressed, or hopeless? Not at all PHQ-2 Score: 0Anxiety Screening - BANDAR- 2Over the last two weeks, have you been... Feeling nervous, anxious, or on edge? Not at all Unable to stop or control worrying? Not at all BANDAR-2 Score: 0Food InsecurityWithin the past year...Did you worry whether your food would run out before you got money to buy more? NoWas there a time when the food you bought didn't last and you didn't have money to get more? NoInfectious Disease / Travel ScreeningRecent travel for you, your family, and/or any sexual partners? NoScreening, Brief Intervention, & Referral to Treatment (SBIRT)Pre-Screening Questions How many times have you have 5 or more drinks in a day? 0How many times have you used an illegal drug or used a prescription medication for a non- medical reason? 0Performed by: Nory Duvall, June 18, 2019 5:13 PMPatient History Medical History:Anxiety DisorderDepressionHepatitis COsteoarthritisLyme DiseaseSurgical History:RT lower leg painFamily History:FH of AnxietyFH Breast CancerFH DepressionFH DiabetesFH HeadachesFH Psychiatric CareSocial/Personal History:Smoking History:Patient currently smokes every day.Patient has been counseled to quit. Advised to Quit/Tobacco Education: YesChief Complaintfollow up lymes, treatment done, med refills and referral for hemoroidsHistory of Present Illness (HPI)48y/o male here for follow up lyme disease, 21 day treatment finished for it.states that he is still having tiredness and doesn't feel he is forgetting as much as did before. states that the body aches are not as severe, they have gone down around 75% since he began this medication for it. have completed maniuplation of the lumbar spine today in office with Vikki Saenz like referral for hemerroids, will send to GI. will send rx for suppastories today as well. medication refills will be sent today. Transitions of Care InboundMedication Reconciliation & ReviewMedication List was reviewed and/or updated during this visit, including review of any mlzc-ngd-erkpfrf medications, herbal therapies, and/or supplements.Allergy ReviewAllergy List was reviewed and/or updated during this visit.Adult Preventive CareScreening Tobacco Screening: Smoking Status: current every day smoker (06/18/2019) Tobacco Use: Currently (06/18/2019) Advised to Quit: Yes (06/18/2019)Labs/Meds/Other Counseling-Nutrition and Physical Activity:BMI Interpretation: Obese (06/18/2019) Counseling: Done (06/18/2019) Physical Activity: Done (06/18/2019)Review of Systems General: Denies loss of appetite, chills, dizziness, fatigue, fever, continued fever, headache, feeling ill, sweats, night sweats, sleep disturbances, weight loss. Respiratory: Denies cough, difficulty breathing, shortness of breath, excessive sputum, coughing up blood, wheezing, chest pain. Musculoskeletal: Complains of back pain, leg pain, joint swelling. Neurologic: Complains of muscle impairment. Psychiatric: Complains of memory loss. Physical ExamGeneral Appearance: well nourished, well hydrated, no acute distressEyes, External: conjunctivae and lids normal, EOMIExternal Ears: normal, no lesions or deformitiesHearing: grossly intactOto scopy: canals clear, tympanic membranes intact, no fluid, light reflex intact bilaterallyExternal Nose: normal, no lesions or deformitiesNasal: mucosa, septum, and turbinates normal, nares patentLips/Teeth/Gums: normal dentition, no gingival inflammation, no labial lesionsPharynx: tongue normal, posterior pharynx without erythema or exudate, no thrush/aphthous ulcerRespiratory, Auscultation: clear to auscultation bilaterally; no rales, rhonchi, or wheezesRespiratory, Effort: no intercostal retractions or use of accessory musclesCardiovascular, Auscultation: S1, S2 audible; no murmur, rub, or gallop; RRRPeripheral Circulation: no clubbing, cyanosis, edema, or varicositiesAbdomen: soft, non-tender, no masses, bowel sounds normalGait & Station: normalBack: spasm T4- on left treated with OMT w/resolutionSkin, Inspection: no rashes, lesions, or ulcerationsOrientation: oriented to time, place, and personMood & Affect: no depression, anxiety, or agitationJudgment & Insight: intactCare Manag ement Plan Transitions of CareInboundRate Your HealthIn general, would you say your health is? GoodAssessment & Plan Problems:Added: External hemorrhoids (ICD- 455.3) (WDW83-A06.4)Acute thoracic back pain (ICD-724.1) (SRN11-Y77.6)Medications:ANUSOL-HC 25 MG RECTAL SUPPOSITORYDOXYCYCLINE MONOHYDRATE 100 MG ORAL CAPSULEGABAPENTIN 600 MG ORAL TABLETONDANSETRON HCL 8 MG ORAL TABLETCOLACE 100 MG ORAL CAPSULEIBUPROFEN 600 MG ORAL TABLETGABAPENTIN 300 MG ORAL CAPSULECHANTIX CONTINUING MONTH HEIDI 1 MG ORAL TABLETCHANTIX STARTING MONTH HEIDI 0.5 MG X 11 & 1 MG X 42 ORAL TABLETNEURONTIN 600 MG ORAL TABLET VENTOLIN HFA 108 (90 BASE) MCG/ACT INHALATION AEROSOL SOLUTIONTRAZODONE HCL 50 MG ORAL TABLETSAFETY-ALLY NEEDLE 18GBD LUER-DAYSI SYRINGE 25G X 1" 3 MLDEPO- TESTOSTERONE 200 MG/ML INTRAMUSCULAR SOLUTIONANDROGEL 40.5 MG/2.5GM (1.62%) TRANSDERMAL GELLOTRIMIN AF 1 % EXTERNAL CREAMSUBOXONE 8-2 MG SUBLINGUAL FILMHYDROCORTISONE 1 % EXTERNAL CREAMVITAMIN D (ERGOCALCIFEROL) 72069 UNIT ORAL CAPSULELOTRIMIN AF 2 % EXTERNAL POWDERIBUPROFEN 800 MG ORAL TABLETCVS OMEPRAZOLE 20 MG ORAL TABLET DELAYED RELEASEMedication Changes:Refilled:DEPO-TESTOSTERONE 200 MG/ML INTRAMUSCULAR SOLUTION-1 cc IM [id number]. Qty: 2[Milliliter] Refills: 0 Method: ElectronicVENTOLIN HFA 108 (90 BASE) MCG/ACT INHALATION AEROSOL SOLUTION-2 puffs every 4 hours as needed. Qty: 1[Inhalation] Refills: 0 Method: ElectronicNew Prescription:ANUSOL-HC 25 MG RECTAL SUPPOSITORY-i supp pr qhs prn hemorrhoids Qty: 12[Suppository] Refills: 0 Method: ElectronicAllergies:No Known Allergies (updated 11/24/2014) Orders:Adult - Ofc Vst, EST, Level IV [CPT-[id number]] Medications:ANUSOL-HC 25 MG RECTAL SUPPOSITORY (HYDROCORTISONE ACETATE) i supp pr qhs prn hemorrhoids #12[Suppository] x 0 Route:RECTAL Entered and Authorized by: John Vargas DO Method used: Electronically to [facility]* (retail) [address] [place] [address] Fax: Note to Pharmacy: Route: RECTAL; RxID: [id number] HFA 108 (90 BASE) MCG/ACT INHALATION AEROSOL SOLUTION (ALBUTEROL SULFATE) 2 puffs every 4 hours as needed. #1[Inhalation] x 0 Route:INHALATION Entered and Authorized by: John Vargas DO Method used: Electronically to [facility]* ([employer]) [address] [place] [address] Note to Pharmacy: Route: INH; RxID: [id number] 200 MG/ML INTRAMUSCULAR SOLUTION (TESTOSTERONE CYPIONATE) 1 cc IM [id number]. #2[Milliliter] x 0 Route:INTRAMUSCULAR Entered and Authorized by: John Vargas DO Method used: Electronically to [facility]* ([employer]) [address] [place] [address] Note to Pharmacy: Route: IM; RxID: [id number]] Assessment & Plan Medication Changes:New Prescription:ANUSOL-HC 2.5 % RECTAL CREAM-apply one applicatorful CT qhs prn hemorrhoids Qty: 1[Tube] Refills: 2 Method: ElectronicRemoved:ANUSOL-HC 25 MG RECTAL SUPPOSITORY-i supp pr qhs prn hemorrhoidsMedications:ANUSOL-HC 2.5 % RECTAL CREAM (HYDROCORTISONE) apply one applicatorful CT qhs prn hemorrhoids #1[Tube] x 2 Route:RECTAL Entered and Authorized by: John Vargas DO Method used: Electronically to [facility]* (retail) [address] [place] [address] Note to Pharmacy: Route: RECTAL; RxID: [id number]] Name Value Range Interpretation Code Description Data Mamie rce(s) Supporting Document(s) ID Date Data Source [id number] 05/29/2019 09:42:07 AM [facility] Measurements & CalculationsHeight: 71 inches (5 ft. 11 in.) 180.34 cm Weight: 228 pounds 8 oz. 103.86 kg Body Mass Index (BMI): 31.98BMI Interpretation: ObeseBody Surface Area (BSA): 2.23Weight Management Education Done (Nutrition/Physical Activity)Vital SignsTemperature: 97.8F oral Pulse Rate: 67 beats/minuteRespiratory Rate: 17 respirations/minuteBlood Pressure: 109/69 left arm sitting automaticO2 Saturation: 95% room airVital Signs performed by: Sammie Cruz LPN, May 29, 2019 9:49 AMInitial Intake Information from: patientRoom #: 12Infectious Disease- Travel Have you or your sexual partner travelled outside of the country recently? NoSmoking, Tobacco or Smoke Exposure StatusSmoke Status: current every day smokerTobacco Use: YesAdv to Quit: YesPassive Smoke Exposure: YesHealthcare HistorySince your last office visit...Have you been admitted to the hospital? NoHave you been to an emergency room (ER) or urgent care clinic? NoHave you seen another healthcare provider? Yes [facility] you seen a dentist? Yes - [facility]Intake performed by: Sammie Cruz LPN, May 29, 2019 9:43 AMRate Your HealthIn general, would you say your health is? GoodPain AssessmentAre you currently having any pain which... You would like your provider to address? Yes Affects your activity level? YesDepression Screening - PHQ-2Over the last two weeks, have you... Had little interest or pleasure in doing things? Not at all Been feeling down, depressed, or hopeless? Not at all PHQ-2 Score: 0Anxiety Screening - BANDAR-2Over the last two weeks, have you been... Feeling nervous, anxious, or on edge? Not at all Unable to stop or control worrying? Not at all BANDAR-2 Score: 0Pain AssessmentPain ScaleNumeric Rating Scale: 3 / 10Location: feetDuration: chronicCharacter/Quality: aching and burningIs the pain radiating? NoScreening, Brief Intervention, & Referral to Treatment (SBIRT)Pre-Screening Questions How many times have you have 5 or more drinks in a day? 0How many times have you used an illegal drug or used a prescription medication for a non-medical reason? 0Performed by: Sammie Cruz LPN, May 29, 2019 9:45 AMPatient History Medical History:Anxiety DisorderDepressionHepatitis COsteoarthritisSurgical History:RT lower leg painFamily History:FH of AnxietyFH Breast CancerFH DepressionFH DiabetesFH HeadachesFH Psychiatric CareSocial/Personal History:Smoking History:Patient currently smokes every day.Patient has been counseled to quit. Smoking Status: current every day smokerAdvised to Quit/Tobacco Education: YesChief Complaintlab review History of Present Illness (HPI)48 yo male here to find out why he is always feeling so sick. Tired and achy all the time. Muscle and joint aches. He has been outside and remembers being bit by a tick. His Lyme titers are positive. He has been using this tesosterone as directed although last month he took a brif break from this.He generally finds gabapentin helpful for the pain although this has not een as effective since he got sick.Telemedicine visit with patient's location at [facility] and provider's location at offsite office. Additional person(s)participating in the visit: None.HPI performed by: Ben Jackson MD, May 29, 2019 9:51 AMTransitions of Care InboundProblem ReviewProblem List was reviewed and/or updated during this visit.Medication Reconciliation & ReviewMedication List was reviewed and/or updated during this visit, including review of any qmzg-ndv-smscadf medications, herbal therapies, and/or supplements.Allergy ReviewAllergy List was reviewed and/or updated during this visit.Adult Preventive CareProvider Calculated and Reviewed all Clinical Protocols for patient today. Screening Tobacco Screening: Smoking Status: current every day smoker (05/29/2019) Advised to Quit: Yes (05/29/2019)Labs/Meds/Other Counseling-Nutrition and Physical Activity:BMI Interpretation: Obese (05/29/2019) Counseling: Done (05/29/2019) Physical Activity: Done (05/29/2019)Review of Systems General: Complains of fatigue. Denies dizziness, headache. Cardiovascular: Denies chest pain. Respiratory: Denies shortness of breath. Gastrointestinal: Denies constipation. Genitourinary: Denies pain with urination. Physical ExamGeneral Appearance: well nourished, well hydrated, no acute distressGait & Station: normalOrientation: oriented to time, place, and personMood & Affect: no depression, anxiety, or agitationJudgment & Insight: intactCare Management Plan Transitions of CareInboundRate Your HealthIn general, would you say your health is? 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 It has been a while since this was checked and this may be part of the reason he has been feeling unwell.Patient Instructions/Care Plan: Other conditions associated with Lyme disease: I think that this explains most if not all of his recent symptoms.3 week course of Doxycycline.Recheck one month.I would also like to recheck the total testosterone. It has been a while since this was checked and this may be part of the reason he has been feeling unwell. Plan developed in collaboration with patient and/or familyMedications:DOXYCYCLINE MONOHYDRATE 100 MG ORAL CAPSULEGABAPENTIN 600 MG ORAL TABLETONDANSETRON HCL 8 MG ORAL TABLETCOLACE 100 MG ORAL CAPSULEIBUPROFEN 600 MG ORAL TABLETGABAPENTIN 300 MG ORAL CAPSULECHANTIX CONTINUING MONTH HEIDI 1 MG ORAL TABLETCHANTIX STARTING MONTH HEIDI 0.5 MG X 11 & 1 MG X 42 ORAL TABLETNEURONTIN 600 MG ORAL TABLETVENTOLIN HFA 108 (90 BASE) MCG/ACT INHALATION AEROSOL SOLUTIONTRAZODONE HCL 50 MG ORAL TABLETSAFETY-ALLY NEEDLE 18GBD LUER-DAYSI SYRINGE 25G X 1" 3 MLDEPO-TESTOSTERONE 200 MG/ML INTRAMUSCULAR SOLUTIONANDROGEL 40.5 MG/2.5GM (1.62%) TRANSDERMAL GELLOTRIMIN AF 1 % EXTERNAL CREAMSUBOXONE 8-2 MG SUBLINGUAL FILMHYDROCORTISONE 1 % EXTERNAL CREAMVITAMIN D (ERGOCALCIFEROL) 14915 UNIT ORAL CAPSULELOTRIMIN AF 2 % EXTERNAL POWDERIBUPROFEN 800 MG ORAL TABLETCVS OMEPRAZOLE 20 MG ORAL TABLET DELAYED RELEASEMedication Changes:Refilled:GABAPENTIN 600 MG ORAL TABLET-1 po qid Qty: 120[Tablet] Refills: 1 Method: ElectronicNew Prescription:DOXYCYCLINE MONOHYDRATE 100 MG ORAL CAPSULE-One po bid for 21 days for the teratment of Lyme Disease. Qty: 42[Capsule] Refills: 0 Method: ElectronicRemoved:NICODERM CQ 14 MG/24HR TRANSDERMAL PATCH 24 HOUR-One patch once daily., [facility] MELATONIN CAPSULE-1 tab po at HS, CITALOPRAM HYDROBROMIDE 20 MG ORAL TABLET-One tablet by mouth every dayChanged: To: GABAPENTIN 600 MG ORAL TABLET-1 po qid Qty: 120[Tablet] Refills: 1Allergies:No Known Allergies (updated 11/24/2014) Orders:Adult - Ofc Vst, EST, Level III [CPT-[id number]] TESTOSTERONE TOTAL [CPT-34104] Telemedicine - Site Fee [CPT-Q3014] Medications:DOXYCYCLINE MONOHYDRATE 100 MG ORAL CAPSULE (DOXYCYCLINE MONOHYDRATE) One po bid for 21 days for the teratment of Lyme Disease. #42[Capsule] x 0 Route:ORAL Entered and Authorized by: Ben Jackson MD Method used: Electronically to [facility]* (retail) [address] [place] [address] Note to Pharmacy: Route: ORAL; RxID: [id number] 600 MG ORAL TABLET (GABAPENTIN) 1 po qid #120[Tablet] x 1 Entered and Authorized by: Ben Jackson MD Method used: Electronically to [facility]* (retail) [address] [place] [address] Note to Pharmacy: Route: ORAL; RxID: [id number] signed by Ben Jackson MD on 05/29/2019 at 10:11 AM Name Value Range Interpretation Code Description Data Mamie rce(s) Supporting Document(s) Procedure Social History Code Duration Value Status Description Data Source(s ) Smoking 08/27/2019 12:00:00 AM EDT Unknown if ever smoked comp leted Unknown if ever smoked [facility] ([facility]) Smoking 06/01/2019 12:00:00 AM EST Unknown if ever smoked comp leted Unknown if ever smoked [facility] ([facility]) Smoking 04/19/2019 12:00:00 AM EST Unknown if ever smoked comp leted Unknown if ever smoked [facility] ([facility]) Vital Signs ID Date Data Source UNK Name Value Range Interpretation Code Description Data Source(s) Body weight 4312 [oz_av] 4312 [oz_av] ZACH ([facility]) Systolic blood pressure 129 mm[Hg] 129 mm[Hg] A THENA ([facility]) Body mass index (BMI) [Ratio] 37.6 kg/m2 37.6 k g/m2 Z[facility] ([facility]) Body height 71 [in_i] 71 [in_i] [facility] ([facility]) Diastolic blood pressure 85 mm[Hg] 85 mm[Hg] [facility] ([facility]) Body mass index (BMI) [Ratio] 29.8 kg/m2 29.8 k g/m2 [facility] ([facility] Heart rate 86 /min 86 /min [facility] ([facility] Diastolic blood pressure 62 mm[Hg] 62 mm[Hg] [facility] ([facility] Systolic blood pressure 112 mm[Hg] 112 mm[Hg] M EDENT ([facility] Body weight 220.00 [lb_av] 220.00 [lb_av] MEDEN T ([facility] Body height 72 [in_i] 72 [in_i] MED[facility] ([facility] 6'0" Body weight 219.00 [lb_av] 219.00 [lb_av] MEDEN T ([facility]) Body temperature 98.3 [degF] 98.3 [degF] MEDENT ([facility]) Respiratory rate 18 /min 18 /min [facility] ( [facility]) Heart rate 73 /min 73 /min MED[facility] ([facility]) Diastolic blood pressure 88 mm[Hg] 88 mm[Hg] MED[facility] ([facility]) Systolic blood pressure 133 mm[Hg] 133 mm[Hg] M EDENT ([facility]) Body weight 3456 [oz_av] 3456 [oz_av] ZACH ([facility]) Systolic blood pressure 149 mm[Hg] 149 mm[Hg] A THENA ([facility]) Body height 71 [in_i] 71 [in_i] ZACH ([facility]) Diastolic blood pressure 83 mm[Hg] 83 mm[Hg] [facility] ([facility]) Diastolic blood pressure 0 mm[Hg] Normal (applies to non-numeric results) 0 mm[Hg] [facility] ([facility]) Systolic blood pressure 0 mm[Hg] Normal (applies t o non-numeric results) 0 mm[Hg] [facility] ([facility]) Body mass index (BMI) [Ratio] 0.00 kg/m2 No rmal (applies to non-numeric results) 0.00 kg/m2 [facility] ([facility]) Body weight Measured 0.00 lbs Normal (applies to n on-numeric results) 0.00 lbs [facility] ([facility]) Body height 0.00 in Normal (applies to non-numeric resu lts) 0.00 in [facility] ([facility]) Body weight 3604 [oz_av] 3604 [oz_av] ZACH ([facility]) Systolic blood pressure 118 mm[Hg] 118 mm[Hg] A THENA ([facility]) Body height 71 [in_i] 71 [in_i] Z[facility] ([facility]) Diastolic blood pressure 78 mm[Hg] 78 mm[Hg] [facility] ([facility]) Diastolic blood pressure 0 mm[Hg] Normal (applies to non-numeric results) 0 mm[Hg] [facility]) Systolic blood pressure 0 mm[Hg] Normal (applies t o non-numeric results) 0 mm[Hg] [facility] ([facility]) Body mass index (BMI) [Ratio] 0.00 kg/m2 No rmal (applies to non-numeric results) 0.00 kg/m2 [facility] ([facility]) Body weight Measured 0.00 lbs Normal (applies to n on-numeric results) 0.00 lbs [facility] ([facility]) Body height 0.00 in Normal (applies to non-numeric resu lts) [facility] Body weight 3656 [oz_av] 3656 [oz_av] [facility] ([facility]) Systolic blood pressure 109 mm[Hg] 109 mm[Hg] A THENA ([facility]) Body height 71 [in_i] 71 [in_i] [facility] ([facility]) Diastolic blood pressure 69 mm[Hg] 69 mm[Hg] [facility] ([facility]) Patient Treatment Plan of Care Planned Activity Planned Date Details Description Data Source (s) Trazodone Hydrochloride 50 MG Oral Tablet ZACH ([facility]) Omeprazole 40 MG Delayed Release Oral Capsule ZACH ([facility]) duloxetine 60 MG Delayed Release Oral Capsule ZACH ([facility]) Doxycycline Monohydrate 100 MG Oral Capsule [facility] ([facility]) Doxepin Hydrochloride 25 MG Oral Capsule [facility] ([facility]) Docusate Sodium 100 MG Oral Capsule [DOK] [facility] ([facility]) Buprenorphine 8 MG / Naloxone 2 MG [facility]
--- OUTSIDE RECORDS SUMMARY | 2020-06-05 21:19 | CCD ---
Author Author [facility] Organization [facility] Address Unknown Phone Unavailable Support Name Relationship Address Phone Matthias Givens Next Of Kin Unknown Unavailable Jonathan Faustin MD Next Of Kin [address] [place] [address] ANILA CARLTON Next Of Kin [address] [place] [address] NELA GIVENS Next Of Kin [address] [place] [address] NELA GIVENS Next Of Kin [address] [place] [address] Ben Jackson MD Next Of Kin [address] [place] [address] Andreina Rivera Next Of Kin [address] [place] [phone] EVETTE GIVENS Next Of Kin [address] [place] [address] ST Next Of Kin Unknown Unavailable Trang Montiel Next Of Kin [address] [place] [address] Grecia Love Next Of Kin [address] [place] [id number] Nitin Gao Next Of Kin [address] [place] [phone] SPACE [employer]GE POOLS Next Of Kin Unknown Unavailable FRANK BECERRA Next Of Kin Unknown [id number] [place] [employer] [place] [address] UNK MISTER [place] [address] BEN CARLTON Next Of Kin [address] [place] [id number] RYAN CARLTON Next Of Kin [address] [place] [address] UE Next Of Kin Unknown Unavailable Angela GONZALES Next Of Kin [address] [place] [address] NORA GIVENS ECON [address] [place] [address] Unavailable Evette Givens ECON Unknown Care Team Providers Care 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 Name Role Phone WICKERT, FILIBERTO FASHION CONSULTANT SELLING Unavailable Unavailable WICKERT, FILIBERTO FASHION CONSULTANT SELLING Unavailable Unavailable WICKERT, FILIBERTO FASHION CONSULTANT SELLING Unavailable Unavailable WICKERT, FILIBERTO FASHION CONSULTANT SELLING Unavailable Unavailable WICKERT, FILIBERTO FASHION CONSULTANT SELLING Unavailable Unavailable WICKERT, FILIBERTO FASHION CONSULTANT SELLING Unavailable Unavailable WICKERT, FILIBERTO FASHION CONSULTANT SELLING Unavailable Unavailable WICKERT, FILIBERTO FASHION CONSULTANT SELLING Unavailable Unavailable WICKERT, FILIBERTO FASHION CONSULTANT SELLING Unavailable Unavailable WICKERT, FILIBERTO FASHION CONSULTANT SELLING Unavailable Unavailable WICKERT, FILIBERTO FASHION CONSULTANT SELLING Unavailable Unavailable WICKERT, FILIBERTO FASHION CONSULTANT SELLING Unavailable Unavailable WICKERT, FILIBERTO FASHION CONSULTANT SELLING Unavailable Unavailable WICKERT, FILIBERTO FASHION CONSULTANT SELLING Unavailable Unavailable WICKERT, FILIBERTO FASHION CONSULTANT SELLING Unavailable Unavailable WICKERT, FILIBERTO FASHION CONSULTANT SELLING Unavailable Unavailable WICKERT, FILIBERTO FASHION CONSULTANT SELLING Unavailable Unavailable WICKERT, FILIBERTO FASHION CONSULTANT SELLING Unavailable Unavailable WICKERT, FILIBERTO FASHION CONSULTANT SELLING Unavailable Unavailable WICKERT, FILIBERTO FASHION CONSULTANT SELLING Unavailable Unavailable WICKERT, FILIBERTO FASHION CONSULTANT SELLING Unavailable Unavailable WICKERT, FILIBERTO FASHION CONSULTANT SELLING Unavailable Unavailable WICKERT, FILIBERTO FASHION CONSULTANT SELLING Unavailable Unavailable WICKERT, FILIBERTO FASHION CONSULTANT SELLING Unavailable Unavailable WICKERT, FILIBERTO FASHION CONSULTANT SELLING Unavailable Unavailable WICKERT, FILIBERTO FASHION CONSULTANT SELLING Unavailable Unavailable WICKERT, FILIBERTO FASHION CONSULTANT SELLING Unavailable Unavailable WICKERT, FILIBERTO FASHION CONSULTANT SELLING Unavailable Unavailable WICKERT, FILIBERTO FASHION CONSULTANT SELLING Unavailable Unavailable Mark MONGE DPM Unavailable Unavailable [...] Unavailable Emanuel Jackson MD Unavailable Unavailable Emanuel Jackosn MD Unavailable Unavailable Emanuel Jackson MD [...] Unavailable Unavailable Mariah, C Chandrakant Unavailable Unavailable [place], C Chandrakant Unavailable Unavailable [place], C Chandrakant Unavailable Unavailable [place], C Chandrakant Unavailable Unavailable Mariah, C Chandrakant Unavailable Unavailable Mariah, C Chandrakant Unavailable Unavailable Lamont Santana PMH-FASHION CONSULTANT SELLING Unavailable Unavailable Lamont Santana PMH-FASHION CONSULTANT SELLING Unavailable Unavailable [place], K Sera PMH-FASHION CONSULTANT SELLING Unavailable Unavailable Lamont Santana PMH-FASHION CONSULTANT SELLING Unavailable Unavailable Lamont Santana PMH-FASHION CONSULTANT SELLING Unavailable Unavailable Lamont Santana PMH-FASHION CONSULTANT SELLING Unavailable Unavailable Nuris FAUSTIN MD Unavailable Unavailable [...] Unavailable Nuris FAUSTIN MD Unavailable Unavailable Nuris FAUSTNI MD Unavailable Unavailable Nuris FAUSTIN MD Unavailable [...] Unavailable Unavailable Nuris FAUSTIN MD Unavailable Unavailable WICKERT, FILIBERTO FASHION CONSULTANT SELLING Unavailable Unavailable WICKERT, FILIBERTO FASHION CONSULTANT SELLING Unavailable Unavailable WICKERT, FILIBERTO FASHION CONSULTANT SELLING Unavailable Unavailable WICKERT, FILIBERTO FASHION CONSULTANT SELLING Unavailable Unavailable WICKERT, FILIBERTO FASHION CONSULTANT SELLING Unavailable Unavailable WICKERT, FILIBERTO FASHION CONSULTANT SELLING Unavailable Unavailable WICKERT, FILIBERTO FASHION CONSULTANT SELLING Unavailable Unavailable WICKERT, FILIBERTO FASHION CONSULTANT SELLING Unavailable Unavailable WICKERT, FILIBERTO FASHION CONSULTANT SELLING Unavailable Unavailable WICKERT, FILIBERTO FASHION CONSULTANT SELLING Unavailable Unavailable WICKERT, FILIBERTO FASHION CONSULTANT SELLING Unavailable Unavailable WICKERT, FILIBERTO FASHION CONSULTANT SELLING Unavailable Unavailable WICKERT, FILIBERTO FASHION CONSULTANT SELLING Unavailable Unavailable WICKERT, FILIBERTO FASHION CONSULTANT SELLING Unavailable Unavailable WICKERT, FILIBERTO FASHION CONSULTANT SELLING Unavailable Unavailable WICKERT, FILIBERTO FASHION CONSULTANT SELLING Unavailable Unavailable WICKERT, FILIBERTO FASHION CONSULTANT SELLING Unavailable Unavailable WICKERT, FILIBERTO FASHION CONSULTANT SELLING Unavailable Unavailable WICKERT, FILIBERTO FASHION CONSULTANT SELLING Unavailable Unavailable WICKERT, FILIBERTO FASHION CONSULTANT SELLING Unavailable Unavailable WICKERT, FILIBERTO FASHION CONSULTANT SELLING Unavailable Unavailable WICKERT, FILIBERTO FASHION CONSULTANT SELLING Unavailable Unavailable WICKERT, FILIBERTO FASHION CONSULTANT SELLING Unavailable Unavailable WICKERT, FILIBERTO FASHION CONSULTANT SELLING Unavailable Unavailable WICKERT, FILIBERTO FASHION CONSULTANT SELLING Unavailable Unavailable WICKERT, FILIBERTO FASHION CONSULTANT SELLING Unavailable Unavailable WICKERT, FILIBERTO FASHION CONSULTANT SELLING Unavailable Unavailable WICKERT, FILIBERTO FASHION CONSULTANT SELLING Unavailable Unavailable WICKERT, FILIBERTO FASHION CONSULTANT SELLING Unavailable Unavailable Re-disclosure Warning The records that [...] is protected by Article 27-F of the [facility] Public Health law. If you continue you may have access to information: Regarding HIV / AIDS; Provided by facilities licensed or operated by the [facility] Office of Mental Health; or Provided by the [facility] Office for People With Developmental Disabilities. If such information is present, then the following [facility] mandated warning applies: This information has [...] law may result in a fine or residential sentence or both. A general authorization for the release of medical or other information is NOT sufficient authorization for further disc losure. Family History Family Member Name Family Member Gender Family Member Status Date o f Status Description Data Source(s) Unknown Unknown Problem [facility] ([facility], ) Encounters Encounter Providers Location Date Indications Data Source(s ) Ben Jackson MD: [address] [place] [address] [phone], Ph. Attender: Ben Jackson MD [facility] Medical 05/30/2020 12:00:00 AM EST [facility] ([facility]) Outpatient Attender: Ben Jackson MD FP 03/09/2020 10:56:00 AM EST [facility] Outpatient Attender: [facility]AS [facility] 02/03 08:45:00 AM EDT [facility] ([facility] Outpatient Attender: Ben Jackson MD FP 12/21/2019 10:08:00 AM EDT [facility] Outpatient Attender: Ben Jackson MD FP 12/20/2019 02:41:00 PM EDT [facility] Outpatient Attender: FILIBERTO COCHRAN FASHION CONSULTANT SELLING 12/09/2019 01:57:52 PM EDT [facility] Outpatient Attender: FILIBERTO COCHRAN FASHION CONSULTANT SELLING 12/09/2019 12: 33:00 PM EDT [facility] Outpatient Attender: Ben Jackson MD FP 11/02/2019 04:53:00 PM EDT [facility] Outpatient Attender: Ben Jackson MD FP 10/16/2019 03:46:00 PM EDT [facility] Outpatient Attender: Ben Jackson MD FP 10/12/2019 07:37:35 PM EDT [facility] Outpatient Attender: Ben Jackson MD FP 10/04/2019 09:34:04 AM EDT [facility] Outpatient Attender: Ben Jackson MD FP 10/01/2019 12:48:02 PM EDT [facility] Outpatient Attender: Ben Jackson MD FP 10/01/2019 09:27:00 AM EDT [facility] Outpatient Attender: Ben Jackson MD FP 10/01/2019 09:26:01 AM EDT [facility] Outpatient Attender: Ben Jackson MD FP 09/30/2019 11:53:02 AM EDT [facility] Outpatient Attender: Ben Jackson MD FP 09/28/2019 03:15:00 PM EDT [facility] Outpatient Attender: Ben Jackson MD FP 09/24/2019 05:38:02 PM EDT [facility] Outpatient Attender: Ben Jackson MD FP 09/24/2019 05:37:01 PM EDT [facility] Outpatient Attender: Ben Jackson MD FP 09/24/2019 05:18:00 PM EDT [facility] Outpatient Attender: Ben Jackson MD FP 09/24/2019 04:58:00 PM EDT [facility] Outpatient Attender: Ben Jackson MD FP 09/24/2019 04:41:01 PM EDT [facility] Outpatient Attender: Ben Jackson MD FP 09/14/2019 11:33:01 AM EDT [facility] Outpatient Attender: TOBIAS [facility] 09/02 09:15:00 AM EDT [facility] ([facility] Outpatient Attender: JONATHAN FAUSTIN MD 09/01/2019 09:19:01 A M EDT [facility] Outpatient Attender: Sera Santana [facility]-FASHION CONSULTANT SELLING [facility] 08/27/2019 02:00:00 AM EDT - 08/27/2019 02:00:00 AM EDT [facility] ([facility]) Attender: Sear Santana [facility]-FASHION CONSULTANT SELLING 08/27/2019 12: 00:00 AM EDT [facility] ([facility]) Outpatient Attender: JONATHAN FAUSTIN MD 08/19/2019 10:00:02 A M EDT [facility] Outpatient Attender: JONATHAN FAUSTIN MD 07/15/2019 12:50:00 P M EDT [facility] Outpatient Attender: JONATHAN FAUSTIN MD 06/24/2019 12:51:03 P M [facility] Outpatient Attender: JONATHAN FAUSTIN MD 06/18/2019 05:36:01 P M [facility] Outpatient Attender: JONATHAN FAUSTIN MD 06/18/2019 05:35:03 P M [facility] Outpatient Attender: JONATHAN FAUSTIN MD 06/18/2019 05:05:01 P M [facility] Outpatient Attender: Chandrakant Lemus [facility] 0 06/01/2019 02:45:00 AM EST - 06/01/2019 02:45:00 AM EST [facility] ([facility]) Attender: Chandrakant Lemus 06/01/2019 12:00:00 AM EST [facility] ([facility]) Outpatient Attender: JONATHAN FAUSTIN MD 05/29/2019 10:50:00 A [facility] Outpatient Attender: JONATHAN FAUSTIN MD 05/29/2019 10:47:01 A [facility] Outpatient Attender: JONATHAN FAUSTIN MD 05/29/2019 10:12:02 A [facility] Outpatient Attender: JONATHAN FAUSTIN MD 05/29/2019 10:12:00 A [facility] Outpatient Attender: JONATHAN FAUSTIN MD 05/29/2019 07:58:00 A [facility] Outpatient Attender: JONATHAN FAUSTIN MD 05/26/2019 09:15:01 A [facility] Outpatient Attender: TOBIAS [facility] 05/06 02:15:00 PM EST [facility] ([facility] Outpatient Attender: JONATHAN FAUSTIN MD 05/25/2019 12:41:03 P [facility] Outpatient Attender: JONATHAN FAUSTIN MD 05/25/2019 12:41:03 P [facility] Outpatient Attender: JONATHAN FAUSTIN MD 05/20/2019 09:36:00 A [facility] Outpatient Attender: JONATHAN FAUSTIN MD 05/18/2019 10:57:01 A [facility] Outpatient Attender: JONATHAN FAUSTIN MD 04/20/2019 10:18:00 A [facility] Outpatient Attender: Chandrakant Lemus [place] [address] 06/20/2018 03:45:00 AM EST - 04/19/2019 03:45:00 AM EST [facility] ([facility]) Attender: Chandrakant Lemus 04/19/2019 12:00:00 AM EST [facility] ([facility]) Outpatient Attender: JONATHAN FAUSTIN MD 04/15/2019 02:51:01 P [facility] Functional Status Medications Medication Brand Name Start Date Product Form Dose Route Admi nistrative Instructions Pharmacy Instructions Status Indications Reaction Description Data Source(s) gabapentin 600 MG Oral Tablet Gabapentin 02/10/2020 12:00:00 AM EDT ORAL active [facility] ([facility]) Ibuprofen 600 MG Oral Tablet Ibuprofen 02/10/2020 12:00:00 AM EDT ORAL active [facility] ([facility]) No Active Medications 02/10/2020 12:00:00 AM EDT completed [facility] ([facility]) Ibuprofen 200 MG Oral Tablet Ibuprofen 02/10/2020 12:00:00 AM EDT ORAL completed [facility] ([facility]) Omeprazole 20 MG Delayed Release Oral Capsule Omeprazole 02/10/2020 12:00:00 AM EDT ORAL active [facility] ([facility]) Acetaminophen 325 MG / Hydrocodone Bitartrate 10 MG Or al Tablet Hydrocodone Bitartrate/Acetaminophen 09/14/2019 12:00:00 AM EDT active [facility] ([facility] Buprenorphine 8 MG / Naloxone 2 MG Oral Strip buprenorphine- naloxone 08/27/2019 12:00:00 AM EDT mg completed [id number] bupr enorphine-naloxone under tongue 08/27/2019 twice a day 8-2 mg film [id number] Seraariadna Santana [id number] [facility] ([facility]) Buprenorphine 8 MG / Naloxone 2 MG Oral Strip buprenorphine- naloxone 08/24/2019 12:00:00 AM EDT mg completed [id number] bupr enorphine-naloxone under tongue 08/24/2019 08/27/2019 twice a day 8-2 mg film [id number] Sera Santana [id number] [facility] ([facility]) Acetaminophen 325 MG / Hydrocodone Bitartrate 10 MG Or al Tablet Hydrocodone-Acetaminophen 07/16/2019 12:00:00 AM EDT active [facility] ([facility] Acetaminophen 325 MG / Hydrocodone Bitartrate 10 MG Or al Tablet Hydrocodone-Acetaminophen 06/28/2019 12:00:00 AM EST completed [facility] ([facility] duloxetine 60 MG Delayed Release Oral Capsule duloxetine 06/01/2019 12:00:00 AM EST 60 mg completed [id number] duloxetine 0 06/01/2019 07/31/2019 every morning 30 60 mg capsule,delayed release(DR/EC) [id number] Chandrakant Lemus [id number] [facility] ([facility]) Acetaminophen 325 MG / Hydrocodone Bitartrate 10 MG Or al Tablet Hydrocodone Bitartrate/Acetaminophen 05/25/2019 12:00:00 AM EST ORAL completed [facility] ([facility] Buprenorphine 8 MG / Naloxone 2 MG Oral Strip [Suboxone] Sub oxone 03/23/2019 12:00:00 AM EST mg completed [id number] Suboxone un noemi tongue 03/23/2019 07/01/2019 twice a day 30 8-2 mg film [id number] Chandrakant Lemus [id number] [facility] ([facility]) Doxycycline Monohydrate 100 MG Oral Caps ule doxycycline monohydrate 100 mg capsule doxycycline monohydrate 100 mg capsule completed doxycycline monohydrate 100 MG Oral Capsule [place] ([facility]) Doxepin Hydrochloride 25 MG Oral Capsule doxepin 25 mg capsule doxepin 25 mg capsule completed doxepin hydroc hloride 25 MG Oral Capsule [place] ([facility]) Buprenorphine 8 MG / Naloxone 2 MG Oral Strip buprenorphine 8 mg-naloxone 2 mg sublingual film buprenorphine 8 mg-naloxone 2 mg sublingual film completed buprenorphine 8 MG / naloxone 2 MG Sublingual Film [place] ([facility]) duloxetine 60 MG Delayed Release Oral Ca psule duloxetine 60 mg capsule,delayed release duloxetine 60 mg capsule,delayed release completed duloxetine 60 MG Delayed Release Oral Capsule [place] ([facility]) Trazodone Hydrochloride 50 MG Oral Tablet trazodone 50 mg tablet trazodone 50 mg tablet completed trazodone hydr ochloride 50 MG Oral Tablet [place] ([facility]) Docusate Sodium 100 MG Oral Capsule [DOK] DOK 100 mg capsule DOK 100 mg capsule completed docusate sodiu m 100 MG Oral Capsule [DOK] [facility] ([facility]) Omeprazole 40 MG Delayed Release Oral Ca psule omeprazole 40 mg capsule,delayed release omeprazole 40 mg capsule,delayed release completed omeprazole 40 MG Delayed Release Oral Capsule [facility] ([facility]) Insurance Providers Payer name Policy type / Coverage type Policy ID Covered green party ID Covered green party's relationship to ballesteros Policy [place] Plan Information [facility] COMMUNITY PLAN MCDHMO [id number] SP [id number] Managed Care - [facility] Community Plan P [id number] S [id number] Medicaid S [id number] S [id number] UNITED HEALTHCARE HEA [id number] S [id number] MEDICAID [id number] SP [id number] Managed Care - [facility] Community Plan P [id number] S [id number] Medicaid S [id number] S [id number] [facility] Plan Medicaid F [id number] SELF [id number] United [employer] [facility] Maintenance Organization (HMO) [id number] Self [id number] United Healthcare Hmo Commercial [id number] Self [id number] [facility] Hmo Commercial [id number] Self [id number] Managed Care - Community Plan United Healthcare P [id number] S [id number] United Healthcare Hmo Commercial [id number] Self [id number] United Healthcare Hmo Commercial [id number] Self [id number] [facility] Hmo Commercial [id number] Self [id number] Managed Care - Community Plan United [employer] P [id number] S [id number] Medicaid S [id number] S [id number] United Healthcare Hmo Commercial [id number] Self [id number] 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 [id number] SP [id number] United Healthcare Hmo Commercial [id number] Self [id number] United [employer] Hmo Commercial [id number] Self [id number] United [employer] Hmo Commercial [id number] Self [id number] [facility] Hmo Commercial [id number] Self [id number] United [employer] Hmo Commercial [id number] Self [id number] United Healthcare Hmo Commercial [id number] Self [id number] United Healthcare Hmo Commercial [id number] Self [id number] [facility] Hmo Commercial [id number] Self [id number] Managed Care - Community Plan United [employer] P [id number] S [id number] ANSI-Medicaid [id number] Managed Care - Community Plan [facility] P [id number] S [id number] UNHC COMMUNITY PLAN MCDHMO [id number] SP [id number] UNHC COMMUNITY PLAN MCDHMO [id number] SP [id number] [facility](MCAID) O [id number] S [id number] [facility] Hmo Commercial [id number] Self [id number] Managed Care - Community Plan [facility] P [id number] S [id number] Medicaid S [id number] S [id number] [facility] Hmo Commercial [id number] Self [id number] SELF PAY ONLY UNAVAILABLE SP UNAV AILABLE SELF PAY UNAVAILABLE UNAVAILA BLE [facility] SYDNI [id number] SP [id number] Managed Care - Community Plan [facility] P [id number] S [id number] Medicaid S [id number] S [id number] Managed Care - Community Plan [facility] P [id number] S [id number] Self Pay P [id number] S [id number] Self Pay P UNAVAILABLE S UNAVAILA BLE Managed Care - Community Plan [facility] P [id number] S [id number] Medicaid S [id number] S [id number] Managed Care - Community Plan [facility] P [id number] S [id number] [employer] [id number] SP [id number] [facility] DSS [id number] SP [id number] [place]BS [place] PPO 302/307 [id number] [employer] [id number] SP [id number] [facility] CEO NA DEP [id number] SP [id number] [place] [employer] O [id number] S [id number] Managed Care BCBS O [id number] S [id number] D Managed Care [facility] O [id number] S [id number] Medicaid Dental O [id number] S [id number] Medicaid S [id number] S [id number] [employer] DODD PLAN [id number] SP [id number] HMO BLUE [id number] SP [id number] Problems, Conditions, and Diagnoses Code Display Name Description Problem Type Effective Dates Data Source(s) 758832875 SNOMED CT Concept SNOMED CT Concept Problem 02/16 04:46:15 PM EDT [facility] ([facility]) 677642419 Arthropathy Arthropathy Problem 02/17/2020 04:46:15 PM EDT [facility] ([facility]) 47618647 Depressive disorder Depressive Disorder Problem 1 04:46:15 PM EDT [facility] ([facility]) 44740825 Viral hepatitis C Viral Hepatitis C Problem 02/17/2020 04:46:15 PM EDT [place] ([facility]) 37319704 Opioid dependence, in remission Opioid dependence, in remission 09/24/2019 05:36:26 PM EDT [facility] 689478512 Opioid dependence in remission Opioid Dependence in Re mission Problem 09/24/2019 12:00:00 AM EDT [facility] ([facility]) F11.20 Opioid dependence, uncomplicated Opioid Use Disorder, Severe Condition 08/27/2019 12:00:00 AM EDT [facility] ([facility]) F33.42 Major depressive disorder, recurrent, in full remission Major Depressive Disorder, Recurrent episode, In full remission Condition 020 12:00:00 AM EDT [facility] ([facility]) 724.1 Acute thoracic back pain Acute thoracic back pain 06/18/2019 05:34:55 PM EST [facility] 455.3 External hemorrhoids External hemorrhoids 06/18 05:34:55 PM EST [facility] 980704497 Pain in thoracic spine Pain in Thoracic Spine Problem 06/18/2019 12:00:00 AM EST [facility] ([facility]) 45343485 Residual hemorrhoidal skin tags Residual Hemorrh oidal Skin Tags Problem 06/18/2019 12:00:00 AM EST [facility] ([facility]) 19933744 Osteochondropathy Osteochondropathy Problem 06/05/2019 12:00:00 AM EST [facility] ([facility] 213429351 Nonunion of fracture Nonunion of fracture Problem 06/05/2019 12:00:00 AM EST [facility] ([facility] 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 05/29/2019 10:11:58 AM EST [facility] 088.81 Other conditions associated with Lyme di sease Other conditions associated with Lyme disease 05/29/2019 10:11:58 AM EST [facility] 068813084 Borreliosis Borreliosis Problem 05/29/2019 12:00:00 AM EST [facility] ([facility]) 38015504 Hypopituitarism Hypopituitarism Problem 05/29/2019 12:0 0:00 AM EST [facility] ([facility]) 91754664 Osteochondropathy Osteochondropathy Problem 03/23 12:00:00 AM EST - 06/05/2019 12:00:00 AM EST [facility] ([facility] 04360362 Osteochondropathy Osteochondropathy Problem 03/23 12:00:00 AM EST - 06/05/2019 12:00:00 AM EST [facility] ([facility] Surgeries/Procedures Procedure Description Date Indications Data Source(s) Electrocardiogram Interpretation & Report Only 020 12:00:00 AM EDT [facility] ([facility]) RADEX FOOT COMPLETE MINIMUM 3 VIEWS 09/14/2019 12:00:0 0 AM EDT [facility] ([facility] RADEX FOOT COMPLETE MINIMUM 3 VIEWS 09/14/2019 12:00:0 0 AM EDT [facility] ([facility] MHC Telemed E/M Lvl 3--Est pt 08/27/2019 12:00:00 AM EDT - 08/27/2019 12:00:00 AM EDT [facility] ([place] [facility] Telemed A/O 30" 08/27/2019 12:00:00 AM EDT [facility] ([facility]) MHC Telemed E/M Lvl 3--Est pt 08/27/2019 12:00:00 AM E DT [facility] ([facility]) OFFICE OUTPATIENT VISIT 10 MINUTES 06/01 12:00:00 AM EST - 06/01/2019 12:00:00 AM EST [facility] ([facility]) OFFICE OUTPATIENT VISIT 10 MINUTES 06/01/2019 12:00:00 AM EST [facility] ([facility]) RADEX FOOT COMPLETE MINIMUM 3 VIEWS 05/25/2019 12:00:0 0 AM EST [facility] ([facility] OFFICE OUTPATIENT VISIT 15 MINUTES 04/19 12:00:00 AM EST - 04/19/2019 12:00:00 AM EST [facility] ([facility]) OFFICE OUTPATIENT VISIT 15 MINUTES 04/19/2019 12:00:00 AM EST [facility] ([facility]) Results ID Date Data Source [id number] 12/14/2019 09:34:10 PM EDT Lab [facility] Name Value Range Interpretation Code Description Data Mamie rce(s) Supporting Document(s) HCV QUANT BY NAAT Lab [facility] <10 DetectedUnit: IU/mL HCV QUANT BY NAAT <1.00 [facility] Unit: log IU/mL HCV RNA detected, but at a level below 10 IU/mL. HCV RNA concentration is below the Lower Limit of Quantification of the assay. HCV QNT NAAT INTERP Lab [facility] amy [facility] DetectedReference range: Not Detected IN TERPRETIVE [...] and Cellular Tissue-Based Products (HCT/P). Performed by [employer], [address] [place] [id number] [email or web address], Tyler Hwang MD, Lab. Director ID Date Data Source [id number] 12/09/2019 07:14:11 PM EDT [facility] Name Value Range Interpretation Code Description Data Mamie rce(s) Supporting Document(s) HEPATITIS B S AG @ (NEG) [facility] ID Date Data Source [id number] 12/09/2019 02:17:50 PM EDT [facility] Name Value Range Interpretation Code Description Data Mamie rce(s) Supporting Document(s) SODIUM 139 mmol/L (136-145) [facility] POTASSIUM 3.9 mmol/L (3.6-5.2) [facility] CHLORIDE 104 mmol/L (100-108) [facility] CO2 29 mmol/L (22-31) [facility] ANION GAP 6 mmol/L (7-16) L [facility] UREA NITROGEN 22 mg/dL (7-24) [facility] CREATININE 0.93 mg/dL (0.80-1.30) [facility] BUN/CREAT RATIO 23.7 RATIO (10.0-20.0) H [facility] GLUCOSE 105 mg/dL (70-99) H [facility] CALCIUM 8.8 mg/dL (8.4-10.2) [facility] TOTAL PROTEIN 7.7 g/dL (6.4-8.2) [facility] ALBUMIN 3.9 g/dL (3.5-4.6) [facility] GLOBULIN 3.8 g/dL (2.7-4.3) [facility] ALB/GLOB RATIO 1.0 RATIO [facility] ALKALINE PHOSPHATASE 95 U/L (45-117) [facility] BILIRUBIN,TOTAL 1.0 mg/dL (0.0-1.0) [facility] PLEASE NOTE:Total bilirubin results may be falselyelevated in patients taking Eltrombopag. AST (SGOT) 16 U/L (11-39) [facility] ALT (SGPT) 21 U/L (12-78) [facility] GFR >60 ml/min/1.73m2 (>59) [facility] GFR ( AMER) >60 ml/min/1.73m2 (>59) [facility] GFR INTERPRETATION [facility] --NORMAL KIDNEY FUNCTION OR MILD DISEASE - GFR >OR= 60CHRONIC KIDNEY DISEASE - GFR 15 - 59RENAL FAILURE - GFR <15 Est. GFR calculation based on the MDRDstudy equation, which assumes a steadystate for creatinine. Est. GFR should notbe used for medication dosing. ID Date Data Source [id number] 12/09/2019 02:01:40 PM EDT [facility] Name Value Range Interpretation Code Description Data Mamie rce(s) Supporting Document(s) WBC 5.4 10*3/uL (4.1-11.0) [facility] RBC 4.42 10*6/uL (4.60-6.10) L [facility] HGB 13.1 g/dL (13.5-18.0) L [facility] HCT 39.6 % (41.0-53.0) L [facility] PERFORMED AT [address] [place] [address] MCV 89.4 fL (80.0-95.0) [facility] MCH 29.7 pg (27.0-32.0) [facility] MCHC 33.2 g/dL (32.0-36.0) [facility] RDW 14.6 % (10.5-14.5) H [facility] PLT 220 10*3/uL (150-450) [facility] MPV 6.7 fL (7.1-10.7) L [facility] NEUT % 59.7 % (35.0-75.0) [facility] LYMPH % 25.8 % (16.0-52.0) [facility] MONO % 12.2 % (0.0-8.0) H [facility] EOS % 1.5 % (0.0-5.0) [facility] BASO % 0.8 % (0.0-4.0) [facility] NEUT # 3.2 10*3/uL (1.8-7.7) [facility] LYMPH # 1.4 10*3/uL (1.2-4.8) [facility] MONO # 0.7 10*3/uL (0.0-0.8) [facility] Eosinophils [#/volume] in Blood by Automated count 0.1 10*3/uL (0.0-0 .5) [facility] BASO # 0.0 10*3/uL (0.0-0.2) [facility] ID Date Data Source [id number] 12/09/2019 01:57:51 PM EDT [facility] Name Value Range Interpretation Code Description Data Mamie rce(s) Supporting Document(s) COLOR [facility] PERFORMED AT [address] [place] [address] APPEARANCE [facility] SPEC GRAV URINE 1.030 (1.003-1.030) [facility] PH URINE 5.5 (5.0-7.5) [facility] LEUK ESTERASE (NEG) [facility] NITRITE URINE (NEG) [facility] PROTEIN URINE (NEG) [facility] GLUCOSE URINE (NEG) [facility] KETONE URINE (NEG) [facility] UROBILINOGEN 1.0 mg/dL (0-1.0) [facility] BILIRUBIN URINE 1+ (NEG) A [facility] INTERFERING SUBSTANCES MAY CAUSE FALSEPO SITIVE BILIRUBIN, WHICH HAS BEENSHOWN TO BE CLINICALLY INSIGNIFICANT.CORRELATE WITH OTHER TESTING. BLOOD/HGB URINE (NEG) [facility] ID Date Data Source [id number] 10/12/2019 12:40:00 PM EDT [facility] Name Value Range Interpretation Code Description Data Mamie rce(s) Supporting Document(s) SARS CORONAVIRUS 2 RNA [facility] This lab was ordered by [facility] and reported by [facility]. ID Date Data Source [id number] 09/24/2019 04:40:33 PM EDT [facility] Measurements & CalculationsHeight: 71 [...] his Suboxone. Has been getting this from [facility] for the past several years. They told him 2 weeks ago that they were no longer prescribing this medication there and that he would have to transition to [facility] for this. He spoke with [facility] and they sent in a couple weeks [...] during this visit, including review of any yhnw-knw-ybgvfha medications, herbal therapies, and/or supplements.Allergy ReviewAllergy List [...] & Plan Problems:Added: Opioid dependence, in remission (JLC25-Q11.21) Assessment: Instructions: I am reluctant to start [...] an MAT intake here or see if [facility] thinks he needs the higher level of care here.I am concerned that the patient will not accept the terms of starting an MAT program here or at [facility]. He does not like the idea of [...] prescribing Suboxone here without more information from [facility] and [facility] about his recent clinical course. However I [...] an MAT intake here or see if [facility] thinks he needs the higher level of care here.I am concern ed that the patient will not accept the terms of starting an MAT program here or at [facility]. He does not like the idea of [...] FILMHYDROCORTISONE 1 % EXTERNAL CREAMVITAMIN D (ERGOCALCIFEROL) 66195 UNIT ORAL CAPSULELOTRIMIN AF 2 % EXTERNAL POWDERIBUPROFEN 800 MG ORAL TABLETCVS OMEPRAZOLE 20 MG ORAL TABLET DELAYED RELEASEMedication Changes:Refilled:SUBOXONE 8-2 MG SUBLINGUAL FILM-use 1 film BID Qty: 14[Film] Refills: 0 Method: ElectronicHYDROCORTISONE 1 % EXTERNAL CREAM-Apply to upper chest qid Qty: 60[Tube] Refills: 1 Method: ElectronicAllergies:No Known Allergies (updated 11/24/2014) Orders:Urine Drug Screen- Pain Management Urine 13 Panel [CPT-87630] Adult - Ofc Vst, EST, Level III [CPT-12161] Medications:HYDROCORTISONE 1 % EXTERNAL CREAM (HYDROCORTISONE) Apply to upper chest qid #60[Tube] x 1 Route:EXTERNAL Entered and Authorized by: Ben Jackson MD Method used: Electronically to [facility]* (retail) [address] [place] [address] Note to Pharmacy: Route: EXT; RxID: [id number] 8-2 MG SUBLINGUAL FILM (BUPRENORPHINE HCL-NALOXONE HCL) use 1 film BID #14[Film] x 0 Route:SUBLINGUAL Entered and Authorized by: Ben Jackson MD Method used: Electronically to [facility]* (retail) [address] [place] [address] Note to Pharmacy: Route: SL; RxID: [id number] signed by Ben Jackson MD on 09/24/2019 at 5:36 PM Name Value Range Interpretation Code Description Data Mamie rce(s) Supporting Document(s) ID Date Data Source [id number] 06/18/2019 05:09:26 PM [facility] Measurements & CalculationsHeight: 71 inches (5 [...] clinicHave you seen a dentist? Yes - Rick performed by: Nory Duvall, June 18, 2019 [...] during this visit, including review of any lppk-jdp-icjujwi medications, herbal therapies, and/or supplements.Allergy ReviewAllergy List [...] & Plan Problems:Added: External hemorrhoids (ICD- 455.3) (MMU11-S59.4)Acute thoracic back pain (ICD-724.1) (SRY63-E93.6)Medications:ANUSOL-HC 25 MG RECTAL SUPPOSITORYDOXYCYCLINE MONOHYDRATE 100 MG [...] FILMHYDROCORTISONE 1 % EXTERNAL CREAMVITAMIN D (ERGOCALCIFEROL) 55368 UNIT ORAL CAPSULELOTRIMIN AF 2 % EXTERNAL POWDERIBUPROFEN 800 MG ORAL TABLETCVS OMEPRAZOLE 20 MG ORAL TABLET DELAYED RELEASEMedication Changes:Refilled:DEPO-TESTOSTERONE 200 MG/ML INTRAMUSCULAR SOLUTION-1 cc IM [id number]. Qty: 2[Milliliter] Refills: 0 Method: ElectronicVENTOLIN HFA 108 (90 BASE) MCG/ACT INHALATION AEROSOL SOLUTION-2 puffs every 4 hours as needed. Qty: 1[Inhalation] Refills: 0 Method: ElectronicNew Prescription:ANUSOL-HC 25 MG RECTAL SUPPOSITORY-i supp pr qhs prn hemorrhoids Qty: 12[Suppository] Refills: 0 Method: ElectronicAllergies:No Known Allergies (updated 11/24/2014) Orders:Adult - Ofc Vst, EST, Level IV [CPT-77352] Medications:ANUSOL-HC 25 MG RECTAL SUPPOSITORY (HYDROCORTISONE ACETATE) i supp pr qhs prn hemorrhoids #12[Suppository] x 0 Route:RECTAL Entered and Authorized by: John Vargas DO Method used: Electronically to [facility]* (retail) [address] [place] [address] Fax: Note to Pharmacy: Route: RECTAL; RxID: [id number] HFA 108 (90 BASE) MCG/ACT INHALATION AEROSOL SOLUTION (ALBUTEROL SULFATE) 2 puffs every 4 hours as needed. #1[Inhalation] x 0 Route:INHALATION Entered and Authorized by: John Vargas DO Method used: Electronically to [facility]* ([facility]) [address] [place] [address] Note to Pharmacy: Route: INH; RxID: [id number] 200 MG/ML INTRAMUSCULAR SOLUTION (TESTOSTERONE CYPIONATE) 1 cc IM x3pyeuo. #2[Milliliter] x 0 Route:INTRAMUSCULAR Entered and Authorized by: John Vargas DO Method used: Electronically to [facility]* ([facility]) [address] [place] [address] Note to Pharmacy: Route: IM; RxID: [id number]] Assessment & Plan Medication Changes:New Prescription:ANUSOL-HC 2.5 % RECTAL CREAM-apply one applicatorful RI qhs prn hemorrhoids Qty: 1[Tube] Refills: 2 Method: ElectronicRemoved:ANUSOL-HC 25 MG RECTAL SUPPOSITORY-i supp pr qhs prn hemorrhoidsMedications:ANUSOL-HC 2.5 % RECTAL CREAM (HYDROCORTISONE) apply one applicatorful RI qhs prn hemorrhoids #1[Tube] x 2 Route:RECTAL Entered and Authorized by: John Vargas DO Method used: Electronically to [facility]* (retail) [address] [place] [address] Note to Pharmacy: Route: RECTAL; RxID: [id number]] Name Value Range Interpretation Code Description Data Mamie rce(s) Supporting Document(s) ID Date Data Source [id number] 05/29/2019 09:42:07 AM [facility] Measurements & CalculationsHeight: 71 inches (5 [...] got sick.Telemedicine visit with patient's location at [facility] and provider's location at offsite office. 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 #42[Capsule] x 0 Route:ORAL Entered and Authorized by: Ben Jackson MD Method used: Electronically to [facility]* (retail) [address] [place] [address] Note to Pharmacy: Route: ORAL; RxID: [id number] 600 MG ORAL TABLET (GABAPENTIN) 1 po qid #120[Tablet] x 1 Entered and Authorized by: Ben Jackson MD Method used: Electronically to [facility]* (retail) [address] [place] [address] Note to Pharmacy: Route: ORAL; RxID: [id number] signed by Ben Jackson MD on 05/29/2019 at 10:11 AM Name Value Range Interpretation Code Description Data Mamie rce(s) Supporting Document(s) Procedure Social History Code Duration Value Status Description Data Source(s ) Smoking 08/27/2019 12:00:00 AM EDT Unknown if ever smoked comp leted Unknown if ever smoked [facility] ([facility]) Smoking 06/01/2019 12:00:00 AM EST Unknown if ever smoked comp leted Unknown if ever smoked [facility] ([facility]) Smoking 04/19/2019 12:00:00 AM EST Unknown if ever smoked comp leted Unknown if ever smoked [facility] ([facility]) Vital Signs ID Date Data Source UNK Name Value Range Interpretation Code Description Data Source(s) Body weight 4312 [oz_av] 4312 [oz_av] [facility] ([facility]) Systolic blood pressure 129 mm[Hg] 129 mm[Hg] A [facility] ([facility]) Body mass index (BMI) [Ratio] 37.6 kg/m2 37.6 k g/m2 [facility] ([facility]) Body height 71 [in_i] 71 [in_i] [facility] ([facility]) Diastolic blood pressure 85 mm[Hg] 85 mm[Hg] [facility] ([facility]) Body mass index (BMI) [Ratio] 29.8 kg/m2 29.8 k g/m2 [facility] ([facility] Heart rate 86 /min 86 /min [facility] ([facility] Diastolic blood pressure 62 mm[Hg] 62 mm[Hg] [facility] ([facility] Systolic blood pressure 112 mm[Hg] 112 mm[Hg] M EDENT ([facility] Body weight 220.00 [lb_av] 220.00 [lb_av] MEDEN T ([facility] Body height 72 [in_i] 72 [in_i] [facility] ([facility] 6'0" Body weight 219.00 [lb_av] 219.00 [lb_av] MEDEN T ([facility]) Body temperature 98.3 [degF] 98.3 [degF] [facility] ([facility]) Respiratory rate 18 /min 18 /min [facility] ( [facility]) Heart rate 73 /min 73 /min [facility] ([facility]) Diastolic blood pressure 88 mm[Hg] 88 mm[Hg] [facility] ([facility]) Systolic blood pressure 133 mm[Hg] 133 mm[Hg] M EDENT ([facility]) Body weight 3456 [oz_av] 3456 [oz_av] [facility] ([facility]) Systolic blood pressure 149 mm[Hg] 149 mm[Hg] A THENA ([facility]) Body height 71 [in_i] 71 [in_i] [facility] ([facility]) Diastolic blood pressure 83 mm[Hg] 83 mm[Hg] [facility] ([facility]) Diastolic blood pressure 0 mm[Hg] Normal (applies to non-numeric results) 0 mm[Hg] [facility] ([facility]) Systolic blood pressure 0 mm[Hg] Normal (applies t o non-numeric results) 0 mm[Hg] [facility] ([facility]) Body mass index (BMI) [Ratio] 0.00 kg/m2 No rmal (applies to non-numeric results) 0.00 kg/m2 [facility] ([facility]) Body weight Measured 0.00 lbs Normal (applies to n on-numeric results) 0.00 lbs [facility] ([facility]) Body height 0.00 in Normal (applies to non-numeric resu lts) 0.00 in [facility] ([facility]) Body weight 3604 [oz_av] 3604 [oz_av] [facility] ([facility]) Systolic blood pressure 118 mm[Hg] 118 mm[Hg] A THE[facility] ([facility]) Body height 71 [in_i] 71 [in_i] [facility] ([facility]) Diastolic blood pressure 78 mm[Hg] 78 mm[Hg] [facility] ([facility]) Diastolic blood pressure 0 mm[Hg] Normal (applies to non-numeric results) 0 mm[Hg] [facility] ([facility]) Systolic blood pressure 0 mm[Hg] Normal (applies t o non-numeric results) 0 mm[Hg] [facility] ([facility]) Body mass index (BMI) [Ratio] 0.00 kg/m2 No rmal (applies to non-numeric results) 0.00 kg/m2 [facility] ([facility]) Body weight Measured 0.00 lbs Normal (applies to n on-numeric results) 0.00 lbs [facility] ([facility]) Body height 0.00 in Normal (applies to non-numeric resu lts) [facility] Body weight 3656 [oz_av] 3656 [oz_av] [facility] ([facility]) Systolic blood pressure 109 mm[Hg] 109 mm[Hg] A [facility] ([facility]) Body height 71 [in_i] 71 [in_i] [facility] ([facility]) Diastolic blood pressure 69 mm[Hg] 69 mm[Hg] [facility] ([facility]) Patient Treatment Plan of Care Planned Activity Planned Date Details Description Data Source (s) Trazodone Hydrochloride 50 MG Oral Tablet [facility] ([facility]) Omeprazole 40 MG Delayed Release Oral Capsule [facility] ([facility]) duloxetine 60 MG Delayed Release Oral Capsule [facility] ([facility]) Doxycycline Monohydrate 100 MG Oral Capsule [facility] ([facility]) Doxepin Hydrochloride 25 MG Oral Capsule [facility] ([facility]) Docusate Sodium 100 MG Oral Capsule [DOK] [facility] ([facility]) Buprenorphine 8 MG / Naloxone 2 MG [facility]
[2020-06-05] MEDS ORDERED: LIDOCAINE 1% MDV 20ML VIAL SC ONE (21:30)
[2020-06-05] MEDS ORDERED: NORCO 5/325MG TABLET (BULK FOR ED) PO ONE (22:15)
[2020-06-05] MEDS ORDERED: CLINDAMYCIN 150MG CAPSULE PO ONE (22:15)
[2020-06-05] MEDS ORDERED: CLEO300C2 PO (22:15)
[2020-06-05 22:31] VITALS: BP 125/70
== END 2020-06-05 22:32 | disposition home or self-care (01) ==
LOC: M ED 19:50
DX: L02.415 Cutaneous abscess of right lower limb (principal); L03.115 Cellulitis of right lower limb; K21.9 Gastro-esophageal reflux disease without esophagitis; Z86.19 Personal history of other infectious and parasitic diseases; Z87.442 Personal history of urinary calculi; F17.200 Nicotine dependence, unspecified, uncomplicated; Z79.890 Hormone replacement therapy; Z79.899 Other long term (current) drug therapy

== ENCOUNTER → 2020-06-16 | Outpatient (CLI) | payer OTHER ==
[~2020-06-16] MED LIST changes: +CLEO300C2 PO
== END ==
LOC: M LABSMTC 10:01
PROVIDERS: ATTEND Anesthesiology
DX: Z01.812 Encounter for preprocedural laboratory examination (principal); Z20.822 Contact with and (suspected) exposure to COVID-19

== ENCOUNTER 2020-06-21 08:59 | Day surgery (SDC) | payer OTHER ==
[~2020-06-21] VITALS: Ht 195.6 cm; Wt 122.5 kg
[~2020-06-21 08:59] MED LIST changes: +BUPIVACAINE HCL 0.5% 10ML VIAL As Ordered ONE; +LIDOCAINE 1% MDV 20ML VIAL As Ordered ONE; +LIDOCAINE 1% MDV 20ML VIAL SQ PRN; +LIDOCAINE 2% 100MG/5ML SDV (FOR ANES.) As Ordered ONE; +LR 1,000 ML IV ONE; +MIDAZOLAM INJ 2MG/2ML VIAL (J2250 PER 1MG) As Ordered ONE; +ONDANSETRON 4MG/2ML VIAL As Ordered ONE; +ceFAZolin SOD 2 GM in IV 1 EA IV ONE; +dexameTHASONE 4 MG/ML 1ML VIAL (J1100 PER 1MG) As Ordered ONE; +fentaNYL 100 MCG/2 ML INJECTION (J3010) As Ordered ONE; +propofoL 500 MG/50 ML VIAL As Ordered ONE
--- OUTSIDE RECORDS SUMMARY | 2020-06-21 09:04 | CCD ---
Author Author [facility] Organization [facility] Address Unknown Phone Unavailable Support Name Relationship Address Phone Matthias Givens Next Of Kin Unknown Unavailable Jonathan Faustin MD Next Of Kin [address] [place] [address] ANILA CARLTON Next Of Kin [address] [place] [address] NELA GIVENS Next Of Kin [address] [place] [address] NELA GIVENS Next Of Kin [address] [place] [address] Ben Jackson MD Next Of Kin [address] [place] [address] Andreina Rivera Next Of Kin [address] [place] [id number] EVETTE GIVENS Next Of Kin [address] [place] [address] ST Next Of Kin Unknown Unavailable Trang Montiel Next Of Kin [address] [place] [address] Grecia Love Next Of Kin [address] [place] [id number] Nitin Gao Next Of Kin [address] [id number] [employer] Next Of Kin Unknown Unavailable FRANK BECERRA Next Of Kin Unknown [id number] [place] [employer] [place] [address] UNK MISTER SORENSON [place] [address] BEN CARLTON Next Of Kin [address] [place] [id number] RYAN CARLTON Next Of Kin [address] [place] [address] UE Next Of Kin Unknown Unavailable Angela GONZALES Next Of Kin [address] [place] [address] NORA GIVENS ECON [address] [place] [address] Unavailable Evette Givens ECON Unknown [phone] Care Team Providers Care Cook Vegetable Name Role Phone WICKERT, FILIBERTO FINANCIAL INSTITUTION MANAGER Unavailable Unavailable WICKERT, FILIBERTO FINANCIAL INSTITUTION MANAGER Unavailable Unavailable WICKERT, FILIBERTO FINANCIAL INSTITUTION MANAGER Unavailable Unavailable WICKERT, FILIBERTO FINANCIAL INSTITUTION MANAGER Unavailable Unavailable WICKERT, FILIBERTO FINANCIAL INSTITUTION MANAGER Unavailable Unavailable WICKERT, FILIBERTO FINANCIAL INSTITUTION MANAGER Unavailable Unavailable WICKERT, FILIBERTO FINANCIAL INSTITUTION MANAGER Unavailable Unavailable WICKERT, FILIBERTO FINANCIAL INSTITUTION MANAGER Unavailable Unavailable WICKERT, FILIBERTO FINANCIAL INSTITUTION MANAGER Unavailable Unavailable WICKERT, FILIBERTO FINANCIAL INSTITUTION MANAGER Unavailable Unavailable WICKERT, FILIBERTO FINANCIAL INSTITUTION MANAGER Unavailable Unavailable WICKERT, FILIBERTO FINANCIAL INSTITUTION MANAGER Unavailable Unavailable WICKERT, FILIBERTO FINANCIAL INSTITUTION MANAGER Unavailable Unavailable WICKERT, FILIBERTO FINANCIAL INSTITUTION MANAGER Unavailable Unavailable WICKERT, FILIBERTO FINANCIAL INSTITUTION MANAGER Unavailable Unavailable WICKERT, FILIBERTO FINANCIAL INSTITUTION MANAGER Unavailable Unavailable WICKERT, FILIBERTO FINANCIAL INSTITUTION MANAGER Unavailable Unavailable WICKERT, FILIBERTO FINANCIAL INSTITUTION MANAGER Unavailable Unavailable WICKERT, FILIBERTO FINANCIAL INSTITUTION MANAGER Unavailable Unavailable WICKERT, FILIBERTO FINANCIAL INSTITUTION MANAGER Unavailable Unavailable WICKERT, FILIBERTO FINANCIAL INSTITUTION MANAGER Unavailable Unavailable WICKERT, FILIBERTO FINANCIAL INSTITUTION MANAGER Unavailable Unavailable WICKERT, FILIBERTO FINANCIAL INSTITUTION MANAGER Unavailable Unavailable WICKERT, FILIBERTO FINANCIAL INSTITUTION MANAGER Unavailable Unavailable WICKERT, FILIBERTO FINANCIAL INSTITUTION MANAGER Unavailable Unavailable WICKERT, FILIBERTO FINANCIAL INSTITUTION MANAGER Unavailable Unavailable WICKERT, FILIBERTO FINANCIAL INSTITUTION MANAGER Unavailable Unavailable Mark MONGE DPM Unavailable Unavailable [...] Unavailable Unavailable Emanuel Jackson MD Unavailable Unavailable Eamnuel Jackson MD Unavailable Unavailable Emanuel Jackson MD [...] Unavailable Emanuel Jackson MD Unavailable Unavailable Emanuel Jakcson MD Unavailable Unavailable Emanuel Jackson MD Unavailable Unavailable Emanuel Jackson MD Unavailable Unavailable Emanuel Jackson MD Unavailable Unavailable mEanuel Jackson MD Unavailable Unavailable Emanuel Jackson MD [...] MD Unavailable Unavailable JacksonEmanuel MD Unavailable Unavailable JacksonEmnauel MD Unavailable Unavailable Jackson, Emanuel Contreras MD Unavailable Unavailable JacksonEmanuel MD Unavailable Unavailable Emanuel Jackson MD Unavailable Unavailable JacksonEmanuel MD Unavailable Unavailable JacksonEmanuel MD Unavailable Unavailable JacksonEmanuel MD Unavailable Unavailable JacksonEmanuel MD Unavailable Unavailable JacksonEmanuel MD Unavailable Unavailable JacksonEmanuel MD Unavailable Unavailable Jackson, Emanuel Contreras MD Unavailable Unavailable Emanuel Jackson MD Unavailable [...] Unavailable Emanuel Jackson MD Unavailable Unavailable Emanuel Jacskon MD Unavailable Unavailable Emanuel Jackson MD Unavailable Unavailable Emanuel Jackson MD Unavailable Unavailable Emanuel Jackson MD Unavailable Unavailable Croydon, C Chandrakant Unavailable Unavailable Mariah, C Chandrakant Unavailable Unavailable Mariah, C Chandrakant Unavailable Unavailable Mariah, C Chandrakant Unavailable Unavailable [place]roy[place], C Chandrakant Unavailable Unavailable [place], C Chandrakant Unavailable Unavailable [place], C Chandrakant Unavailable Unavailable [place], K Sera PMH-FINANCIAL INSTITUTION MANAGER Unavailable Unavailable [place], K Sera PMH-FINANCIAL INSTITUTION MANAGER Unavailable Unavailable [place], K Sera PMH-FINANCIAL INSTITUTION MANAGER Unavailable Unavailable Max, K Sera PMH-FINANCIAL INSTITUTION MANAGER Unavailable Unavailable [place], K Sera PMH-FINANCIAL INSTITUTION MANAGER Unavailable Unavailable Lamont Santana PMH-FINANCIAL INSTITUTION MANAGER Unavailable Unavailable Nuris FAUSTIN MD Unavailable Unavailable [...] Unavailable Unavailable Nuris FAUSTIN MD Unavailable Unavailable Nuirs FAUSTIN MD Unavailable Unavailable Nuris FAUSTIN MD [...] Nuris FAUSTIN MD Unavailable Unavailable WICKERT, FILIBERTO FINANCIAL INSTITUTION MANAGER Unavailable Unavailable WICKERT, FILIBERTO FINANCIAL INSTITUTION MANAGER Unavailable Unavailable WICKERT, FILIBERTO FINANCIAL INSTITUTION MANAGER Unavailable Unavailable WICKERT, FILIBERTO FINANCIAL INSTITUTION MANAGER Unavailable Unavailable WICKERT, FILIBERTO FINANCIAL INSTITUTION MANAGER Unavailable Unavailable WICKERT, FILIBERTO FINANCIAL INSTITUTION MANAGER Unavailable Unavailable WICKERT, FILIBERTO FINANCIAL INSTITUTION MANAGER Unavailable Unavailable WICKERT, FILIBERTO FINANCIAL INSTITUTION MANAGER Unavailable Unavailable WICKERT, FILIBERTO FINANCIAL INSTITUTION MANAGER Unavailable Unavailable WICKERT, FILIBERTO FINANCIAL INSTITUTION MANAGER Unavailable Unavailable WICKERT, FILIBERTO FINANCIAL INSTITUTION MANAGER Unavailable Unavailable WICKERT, FILIBERTO FINANCIAL INSTITUTION MANAGER Unavailable Unavailable WICKERT, FILIBERTO FINANCIAL INSTITUTION MANAGER Unavailable Unavailable WICKERT, FILIBERTO FINANCIAL INSTITUTION MANAGER Unavailable Unavailable WICKERT, FILIBERTO FINANCIAL INSTITUTION MANAGER Unavailable Unavailable WICKERT, FILIBERTO FINANCIAL INSTITUTION MANAGER Unavailable Unavailable WICKERT, FILIBERTO FINANCIAL INSTITUTION MANAGER Unavailable Unavailable WICKERT, FILIBERTO FINANCIAL INSTITUTION MANAGER Unavailable Unavailable WICKERT, FILIBERTO FINANCIAL INSTITUTION MANAGER Unavailable Unavailable WICKERT, FILIBERTO FINANCIAL INSTITUTION MANAGER Unavailable Unavailable WICKERT, FILIBERTO FINANCIAL INSTITUTION MANAGER Unavailable Unavailable WICKERT, FILIBERTO FINANCIAL INSTITUTION MANAGER Unavailable Unavailable WICKERT, FILIBERTO FINANCIAL INSTITUTION MANAGER Unavailable Unavailable WICKERT, FILIBERTO FINANCIAL INSTITUTION MANAGER Unavailable Unavailable WICKERT, FILIBERTO FINANCIAL INSTITUTION MANAGER Unavailable Unavailable WICKERT, FILIBERTO FINANCIAL INSTITUTION MANAGER Unavailable Unavailable WICKERT, FILIBERTO FINANCIAL INSTITUTION MANAGER Unavailable Unavailable Re-disclosure Warning The records that [...] is protected by Article 27-F of the [facility] Public Health law. If you continue you may have access to information: Regarding HIV / AIDS; Provided by facilities licensed or operated by the [facility] Office of Mental Health; or Provided by the [facility] Office for People With Developmental Disabilities. If such information is present, then the following [facility] mandated warning applies: This information has [...] law may result in a fine or senior living sentence or both. A general authorization for the release of medical or other information is NOT sufficient authorization for further disc losure. Family History Family Member Name Family Member Gender Family Member Status Date o f Status Description Data Source(s) Unknown Unknown Problem [facility] Encounters Encounter Providers Location Date Indications Data Source(s ) Ben Jackson MD: [address] [place] [phone], Ph. Attender: Ben Jackson MD [facility] Medical 05/30/2020 12:00:00 AM EST ZACH ([facility]) Outpatient Attender: Ben Jackson MD 03/09/2020 10:56:00 AM EST [facility] Outpatient Attender: TOBIAS MONGE [facility] 02/03 08:45:00 AM EDT MED[facility] ([facility] Outpatient Attender: Ben Jackson MD FP 12/21/2019 10:08:00 AM EDT [facility] Outpatient Attender: Ben Jackson MD FP 12/20/2019 02:41:00 PM EDT [facility] Outpatient Attender: FILIBERTO COCHRAN FINANCIAL INSTITUTION MANAGER 12/09/2019 01:57:52 PM EDT [facility] Outpatient Attender: FILIBERTO COCHRAN FINANCIAL INSTITUTION MANAGER 12/09/2019 12: 33:00 PM EDT [facility] DEPENDENCY EKG LABS Outpatient Attender: [...] Medical Center Outpatient Attender: Ben Jackson MD 09/14/2019 11:33:01 AM EDT [facility] Outpatient Attender: TOBIAS MONGE [facility] 09/02 09:15:00 AM EDT MEDENT ([facility] Outpatient Attender: JONATHAN FAUSTIN MD 09/01/2019 09:19:01 A M EDT [facility] Outpatient Attender: Sera Santana [facility]-FINANCIAL INSTITUTION MANAGER [facility] 08/27/2019 02:00:00 AM EDT - 08/27/2019 02:00:00 AM EDT [facility] ([facility]) Attender: Sera Santana [facility]-FINANCIAL INSTITUTION MANAGER 08/27/2019 12: 00:00 AM EDT [facility] ([facility]) Outpatient Attender: JONATHAN FAUSTIN MD 08/19/2019 10:00:02 A M EDT [facility] Outpatient Attender: JONATHAN FAUSTIN MD 07/15/2019 12:50:00 P M T [facility] Outpatient Attender: JONATHAN FAUSTIN MD 06/24/2019 12:51:03 P M [facility] Outpatient Attender: JONATHAN FAUSTIN MD 06/18/2019 05:36:01 P M [facility] Outpatient Attender: JONATHAN FAUSTIN MD 06/18/2019 05:35:[address] [facility] Outpatient Attender: JONATHAN FAUSTIN MD 06/18/2019 05:05:[address] [facility] Outpatient Attender: Chandrakant Lemus [facility] 0 06/01/2019 02:45:00 AM EST - 06/01/2019 02:45:00 AM EST [facility] ([facility]) Attender: Chandrakant Lemus 06/01/2019 12:00:00 AM EST [facility] ([facility]) Outpatient Attender: JONATHAN FAUSTIN MD 05/29/2019 10:50:00 A M [facility] Outpatient Attender: JONATHAN FAUSTIN MD 05/29/2019 10:47:[address] [facility] Outpatient Attender: JONATHAN FAUSTIN MD 05/29/2019 10:12:[address] [facility] Outpatient Attender: JONATHAN FAUSTIN MD 05/29/2019 10:12:[address] [facility] Outpatient Attender: JONATHAN FAUSTIN MD 05/29/2019 07:58:[address] [facility] Outpatient Attender: JONATHAN FAUSTIN MD 05/26/2019 09:15:[address] [facility] Outpatient Attender: TOBIAS MONGE [facility] 05/06 02:15:00 PM [facility] MEDENT [facility] Outpatient Attender: JONATHAN FAUSTIN MD 05/25/2019 12:41:[address] [facility] Outpatient Attender: JONATHAN FAUSTIN MD 05/25/2019 12:41:[address] [facility] Outpatient Attender: JONATHAN FAUSTIN MD 05/20/2019 09:36:[address] [facility] Outpatient Attender: JONATHAN FAUSTIN MD 05/18/2019 10:57:[address] [facility] Functional Status Medications Medication Brand Name Start Date Product Form Dose Route Admi nistrative Instructions Pharmacy Instructions Status Indications Reaction Description Data Source(s) gabapentin 600 MG Oral Tablet Gabapentin 02/10/2020 12:00:00 AM EDT ORAL active MEDENT ([facility]) Ibuprofen 600 MG Oral Tablet Ibuprofen 02/10/2020 12:00:00 AM EDT ORAL active MEDENT ([facility]) No Active Medications 02/10/2020 12:00:00 AM EDT completed MEDENT ([facility]) Ibuprofen 200 MG Oral Tablet Ibuprofen 02/10/2020 12:00:00 AM EDT ORAL completed MEDENT ([facility]) Omeprazole 20 MG Delayed Release Oral Capsule Omeprazole 02/10/2020 12:00:00 AM EDT ORAL active MEDENT ([facility]) Acetaminophen 325 MG / Hydrocodone Bitartrate 10 MG Or al Tablet Hydrocodone Bitartrate/Acetaminophen 09/14/2019 12:00:00 AM EDT active MEDENT ([facility] Buprenorphine 8 MG / Naloxone 2 MG Oral Strip buprenorphine- naloxone 08/27/2019 12:00:00 AM EDT mg completed [id number] bupr enorphine-naloxone under tongue 08/27/2019 twice a day 8-2 mg film [id number] Sera Santana [id number] [facility] ([facility]) Buprenorphine 8 MG / Naloxone 2 MG Oral Strip buprenorphine- naloxone 08/24/2019 12:00:00 AM EDT mg completed [id number] bupr enorphine-naloxone under tongue 08/24/2019 08/27/2019 twice a day 8-2 mg film [id number] Sera Mengrow [id number] [facility]Mental Health [facility] ([facility]) Acetaminophen 325 MG / Hydrocodone Bitartrate 10 MG Or al Tablet Hydrocodone-Acetaminophen 07/16/2019 12:00:00 AM EDT active [facility]ENT ([facility] Acetaminophen 325 MG / Hydrocodone Bitartrate 10 MG Or al Tablet Hydrocodone-Acetaminophen 06/28/2019 12:00:00 AM EST completed [facility] ([facility] duloxetine 60 MG Delayed Release Oral Capsule duloxetine 06/01/2019 12:00:00 AM EST 60 mg completed [id number] duloxetine 0 06/01/2019 07/31/2019 every morning 30 60 mg capsule,delayed release(DR/EC) [id number] Chandrakant Mariah [id number] [facility] ([facility]) Acetaminophen 325 MG / Hydrocodone Bitartrate 10 MG Or al Tablet Hydrocodone Bitartrate/Acetaminophen 05/25/2019 12:00:00 AM EST ORAL completed [facility] ([facility] Buprenorphine 8 MG / Naloxone 2 MG Oral Strip [Suboxone] Sub oxone 03/23/2019 12:00:00 AM EST mg completed [id number] Suboxone un noemi tongue 03/23/2019 07/01/2019 twice a day 30 8-2 mg film [id number] Chandrakant Lemus [id number] Psychiatric/Mental Health Ac [facility] ([facility] Doxycycline Monohydrate 100 MG Oral Caps ule doxycycline monohydrate 100 mg capsule doxycycline monohydrate 100 mg capsule completed doxycycline monohydrate 100 MG Oral Capsule ZACH ([facility]) Doxepin Hydrochloride 25 MG Oral Capsule doxepin 25 mg capsule doxepin 25 mg capsule completed doxepin hydroc hloride 25 MG Oral Capsule ZACH ([facility]) Buprenorphine 8 MG / Naloxone 2 MG Oral Strip buprenorphine 8 mg-naloxone 2 mg sublingual film buprenorphine 8 mg-naloxone 2 mg sublingual film completed buprenorphine 8 MG / naloxone 2 MG Sublingual Film [facility] ([facility]) duloxetine 60 MG Delayed Release Oral Ca psule duloxetine 60 mg capsule,delayed release duloxetine 60 mg capsule,delayed release completed duloxetine 60 MG Delayed Release Oral Capsule [facility] ([facility]) Trazodone Hydrochloride 50 MG Oral Tablet trazodone 50 mg tablet trazodone 50 mg tablet completed trazodone hydr ochloride 50 MG Oral Tablet [facility] ([facility]) Docusate Sodium 100 MG Oral Capsule [DOK] DOK 100 mg capsule DOK 100 mg capsule completed docusate sodiu m 100 MG Oral Capsule [DOK] [facility] ([facility]) Omeprazole 40 MG Delayed Release Oral Ca psule omeprazole 40 mg capsule,delayed release omeprazole 40 mg capsule,delayed release completed omeprazole 40 MG Delayed Release Oral Capsule [facility] ([facility]) Insurance Providers Payer name Policy type / Coverage type Policy ID Covered green party ID Covered green party's relationship to ballesteros Policy Ballesteros Plan Information [facility] COMMUNITY [facility] [id number] SP [id number] Managed Care - [facility] Community Plan P [id number] S [id number] Medicaid S [id number] [facility] HEA [id number] S [id number] MEDICAID [id number] SP [id number] Managed Care - [facility] Community Plan P [id number] S [id number] Medicaid S [id number] S [id number] [facility] Comm Plan Medicaid F [id number] SELF [id number] United [employer] [facility] Maintenance Organization (HMO) [id number] Self [id number] United Healthcare Hmo Commercial [id number] Self [id number] United Healthcare Hmo Commercial [id number] Self [id number] Managed Care - Community Plan United Healthcare P [id number] S [id number] United Healthcare Hmo Commercial [id number] Self [id number] United Healthcare Hmo Commercial [id number] Self [id number] United Healthcare Hmo Commercial [id number] Self [id number] Managed Care - Community Plan United [employer] P [id number] S [id number] Medicaid S [id number] United Healthcare Hmo Commercial [id number] Self [id number] 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 [id number] SP [id number] United Healthcare Hmo Commercial [id number] Self [id number] United Healthcare Hmo Commercial [id number] Self [id number] United Healthcare Hmo Commercial [id number] Self [id number] United Healthcare Hmo Commercial [id number] Self [id number] United Healthcare Hmo Commercial [id number] Self [id number] United Healthcare Hmo Commercial [id number] Self [id number] United Healthcare Hmo Commercial [id number] Self [id number] United Healthcare Hmo Commercial [id number] Self [id number] Managed Care - Community Plan United Healthcare P [id number] S [id number] ANSI-Medicaid [id number] Managed Care - Community Plan United [employer] P [id number] S [id number] UNHC COMMUNITY PLAN MCDHMO [id number] SP [id number] UNHC COMMUNITY PLAN MCDHMO [id number] SP [id number] [facility](MCAID) O [id number] S [id number] United Healthcare Hmo Commercial [id number] Self [id number] Managed Care - Community Plan United Healthcare P [id number] S [id number] Medicaid S [id number] S [id number] United Healthcare Hmo Commercial [id number] Self [id number] SELF PAY ONLY UNAVAILABLE SP UNAV AILABLE SELF PAY UNAVAILABLE UNAVAILA BLE [facility] SYDNI [id number] SP [id number] Managed Care - Community Plan United Healthcare P [id number] S [id number] Medicaid S [id number] S [id number] Managed Care - Community Plan [facility] P [id number] S [id number] Self Pay P [id number] S [id number] Self Pay P UNAVAILABLE S UNAVAILA BLE Managed Care - [facility] Plan [facility] P [id number] S [id number] Medicaid S [id number] S [id number] [facility] Plan [facility] P [id number] S [id number] [employer] [id number] SP [id number] [facility] DSS [id number] SP [id number] BCBS [place] PPO 302/307 [id number] [employer] [id number] SP [id number] [facility] SH[employer]ER [employer] DEP [id number] SP [id number] [employer] O [id number] S [id number] Managed Care BCBS O [id number] S [id number] D Managed Care [facility] O [id number] S [id number] Medicaid Dental O [id number] S [id number] Medicaid S [id number] S [id number] BLUE CROSS DODD PLAN [id number] SP [id number] HMO BLUE [id number] SP [id number] Problems, Conditions, and Diagnoses Code Display Name Description Problem Type Effective Dates Data Source(s) 368244830 SNOMED CT Concept SNOMED CT Concept Problem 02/16 04:46:15 PM EDT [facility] ([facility]) 356364211 Arthropathy Arthropathy Problem 02/17/2020 04:46:15 PM EDT [facility] ([facility]) 25717285 Depressive disorder Depressive Disorder Problem 1 04:46:15 PM EDT [facility] ([facility]) 71020727 Viral hepatitis C Viral Hepatitis C Problem 02/17/2020 04:46:15 PM EDT [facility] ([facility]) 34243285 Opioid dependence, in remission Opioid dependence, in remission 09/24/2019 05:36:26 PM EDT [facility] 567954801 Opioid dependence in remission Opioid Dependence in Re mission Problem 09/24/2019 12:00:00 AM EDT ZACH ([facility]) F11.20 Opioid dependence, uncomplicated Opioid Use Disorder, Severe Condition 08/27/2019 12:00:00 AM EDT [facility] ([facility]) F33.42 Major depressive disorder, recurrent, in full remission Major Depressive Disorder, Recurrent episode, In full remission Condition 020 12:00:00 AM EDT [facility] ([facility]) 724.1 Acute thoracic back pain Acute thoracic back pain 06/18/2019 05:34:55 PM [facility] 455.3 External hemorrhoids External hemorrhoids 06/18 05:34:55 PM [facility] 513511331 Pain in thoracic spine Pain in Thoracic Spine Problem 06/18/2019 12:00:00 AM EST ZACH ([facility]) 30618868 Residual hemorrhoidal skin tags Residual Hemorrh oidal Skin Tags Problem 06/18/2019 12:00:00 AM EST ZACH ([facility]) 02871910 Osteochondropathy Osteochondropathy Problem 06/05/2019 12:00:00 AM EST [facility] ([facility] 375729823 Nonunion of fracture Nonunion of fracture Problem 06/05/2019 12:00:00 AM EST [facility] ([facility] 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 05/29/2019 10:11:58 AM [facility] 088.81 Other conditions associated with Lyme di sease Other conditions associated with Lyme disease 05/29/2019 10:11:58 AM [facility] 161213423 Borreliosis Borreliosis Problem 05/29/2019 12:00:00 AM EST [facility] ([facility]) 87532531 Hypopituitarism Hypopituitarism Problem 05/29/2019 12:0 0:00 AM EST ZACH ([facility]) 84246082 Osteochondropathy Osteochondropathy Problem 03/23 12:00:00 AM EST - 06/05/2019 12:00:00 AM EST [facility] ([facility] 34642707 Osteochondropathy Osteochondropathy Problem 03/23 12:00:00 AM EST - 06/05/2019 12:00:00 AM EST [facility] ([facility] Surgeries/Procedures Procedure Description Date Indications Data Source(s) Electrocardiogram Interpretation & Report Only 12:00:00 AM EDT MEDENT ([facility]) RADEX FOOT COMPLETE MINIMUM 3 VIEWS 09/14/2019 12:00:0 0 AM EDT [facility] ([facility] RADEX FOOT COMPLETE MINIMUM 3 VIEWS 09/14/2019 12:00:0 0 AM EDT [facility] ([facility] MHC Telemed E/M Lvl 3--Est pt 08/27/2019 12:00:00 AM EDT - 08/27/2019 12:00:00 AM EDT [facility] ([facility]) Telemed A/O 30" 08/27/2019 12:00:00 AM EDT [facility] ([facility]) MHC Telemed E/M Lvl 3--Est pt 08/27/2019 12:00:00 AM E DT [facility] ([facility]) OFFICE OUTPATIENT VISIT 10 MINUTES 06/01 12:00:00 AM EST - 06/01/2019 12:00:00 AM EST [facility] ([facility]) OFFICE OUTPATIENT VISIT 10 MINUTES 06/01/2019 12:00:00 AM EST [facility] ([facility]) RADEX FOOT COMPLETE MINIMUM 3 VIEWS 05/25/2019 12:00:0 0 AM EST [facility] ([facility] Results ID Date Data Source [id number] 06/16/2020 09:40:00 AM EST [facility] Name Value Range Interpretation Code Description Data Mamie rce(s) Supporting Document(s) SARS coronavirus 2 RNA Not Detected [facility] [place] This lab was ordered by [facility] and reported by [facility]. ID Date Data Source [id number] 12/14/2019 09:34:10 PM EDT [facility] [facility] Name Value Range Interpretation Code Description Data Mamie rce(s) Supporting Document(s) HCV QUANT BY NAAT [facility] <10 DetectedUnit: IU/mL HCV QUANT BY NAAT <1.00 Lab [facility] Unit: log IU/mL HCV RNA detected, but at a level below 10 IU/mL. HCV RNA concentration is below the Lower Limit of Quantification of the assay. HCV QNT NAAT INTERP [facility] DetectedReference range: Not Detected IN TERPRETIVE INFORMATION: [...] and Cellular Tissue-Based Products (HCT/P). Performed by [facility], [address] [place] [id number] [email or web address], Tyler Hwang MD, Lab. Director ID Date Data Source [id number] 12/09/2019 07:14:11 PM EDT Lab [facility] Name Value Range Interpretation Code Description Data Mamie rce(s) Supporting Document(s) HEPATITIS B S AG @ (NEG) [facility] ID Date Data Source [id number] 12/09/2019 02:17:50 PM EDT Lab [facility] gianluca WOOD Name Value Range Interpretation Code Description Data Mamie rce(s) Supporting Document(s) SODIUM 139 mmol/L (136-145) [facility] POTASSIUM 3.9 mmol/L (3.6-5.2) [facility] CHLORIDE 104 mmol/L (100-108) [facility] CO2 29 mmol/L (22-31) [facility] ANION GAP 6 mmol/L (7-16) L [facility] [facility] NITROGEN 22 mg/dL (7-24) [facility] CREATININE 0.93 mg/dL (0.80-1.30) [facility] BUN/CREAT RATIO 23.7 RATIO (10.0-20.0) H [facility] GLUCOSE 105 mg/dL (70-99) H [facility] CALCIUM 8.8 mg/dL (8.4-10.2) [facility] TOTAL PROTEIN 7.7 g/dL (6.4-8.2) [facility] ALBUMIN 3.9 g/dL (3.5-4.6) [facility] GLOBULIN 3.8 g/dL (2.7-4.3) [facility] ALB/GLOB RATIO 1.0 RATIO [facility] ALKALINE PHOSPHATASE 95 U/L (45-117) [facility] BILIRUBIN,TOTAL 1.0 mg/dL (0.0-1.0) [facility] PLEASE NOTE:Total bilirubin results may be falselyelevated in patients taking Eltrombopag. AST (SGOT) 16 U/L (11-39) [facility] ALT (SGPT) 21 U/L (12-78) [facility] GFR >60 ml/min/1.73m2 (>59) [facility] GFR ( AMER) >60 ml/min/1.73m2 (>59) [facility] GFR INTERPRETATION [facility] --NORMAL KIDNEY FUNCTION OR MILD DISEASE - GFR >OR= 60CHRONIC KIDNEY DISEASE - GFR 15 - 59RENAL FAILURE - GFR <15 Est. GFR calculation based on the MDRDstudy equation, which assumes a steadystate for creatinine. Est. GFR should notbe used for medication dosing. ID Date Data Source [id number] 12/09/2019 02:01:40 PM EDT [facility] Name Value Range Interpretation Code Description Data Mamie rce(s) Supporting Document(s) WBC 5.4 10*3/uL (4.1-11.0) [facility] [place] RBC 4.42 10*6/uL (4.60-6.10) L [facility] HGB 13.1 g/dL (13.5-18.0) L [facility] HCT 39.6 % (41.0-53.0) L [facility]FOR[facility] [address] [place] [address] MCV 89.4 fL (80.0-95.0) [facility] MCH 29.7 pg (27.0-32.0) [facility] MCHC 33.2 g/dL (32.0-36.0) [facility] RDW 14.6 % (10.5-14.5) H [facility] PLT 220 10*3/uL (150-450) [facility] MPV 6.7 fL (7.1-10.7) L [facility] NEUT % 59.7 % (35.0-75.0) [facility] LYMPH % 25.8 % (16.0-52.0) [facility] MONO % 12.2 % (0.0-8.0) H [facility] EOS % 1.5 % (0.0-5.0) [facility] BASO % 0.8 % (0.0-4.0) [facility] NEUT # 3.2 10*3/uL (1.8-7.7) [facility] LYMPH # 1.4 10*3/uL (1.2-4.8) [facility] MONO # 0.7 10*3/uL (0.0-0.8) [facility] Eosinophils [#/volume] in Blood by Automated count 0.1 10*3/uL (0.0-0 .5) [facility] BASO # 0.0 10*3/uL (0.0-0.2) [facility] ID Date Data Source [id number] 12/09/2019 01:57:51 PM EDT [facility] Name Value Range Interpretation Code Description Data Mamie rce(s) Supporting Document(s) COLOR [facility] PERFORMED AT [address] [place] [address] APPEARANCE [facility] SPEC GRAV URINE 1.030 (1.003-1.030) [facility] PH URINE 5.5 (5.0-7.5) [facility] LEUK ESTERASE (NEG) [facility] NITRITE URINE (NEG) [facility] PROTEIN URINE (NEG) [facility] GLUCOSE URINE (NEG) [facility] KETONE URINE (NEG) [facility] [place] UROBILINOGEN 1.0 mg/dL (0-1.0) [facility] [place] BILIRUBIN URINE 1+ (NEG) A [facility] INTERFERING SUBSTANCES MAY CAUSE FALSEPO SITIVE BILIRUBIN, WHICH HAS BEENSHOWN TO BE CLINICALLY INSIGNIFICANT.CORRELATE WITH OTHER TESTING. BLOOD/HGB URINE (NEG) [facility] ID Date Data Source [id number] 10/12/2019 12:40:00 PM EDT [facility] Name Value Range Interpretation Code Description Data [facility] rce(s) Supporting Document(s) SARS CORONAVIRUS 2 RNA [facility] This lab was ordered by [facility] and reported by [facility]. ID Date Data Source [id number] 09/24/2019 04:40:33 PM EDT [facility] [...] his Suboxone. Has been getting this from [facility] for the past several years. They told him 2 weeks ago that they were no longer prescribing this medication there and that he would have to transition to [facility] for this. He spoke with [facility] and they sent in a couple [...] ago. We have a singed release for [facility] but because it is late Friday afternoon we are unable to get either their records or talk to [employer].HPI performed by: Ben Jackson MD, September 24, 2019 5:28 PMProblem ReviewProblem List was reviewed and/or updated during this visit.Medication Reconciliation & ReviewMedication List was reviewed and/or updated during this visit, including review of any kqjn-qgc-lliwtsl medications, herbal therapies, and/or supplements.Allergy ReviewAllergy List [...] & Plan Problems:Added: Opioid dependence, in remission (MCI38-Y33.21) Assessment: Instructions: I am reluctant to start prescribing Suboxone here without [facility] about his recent clinical course. However [...] an MAT intake here or see if [facility] thinks he needs the higher level of care here.I am concerned that the patient will not accept the terms of starting an MAT program here or at [facility]. He does not like the idea [...] here without more information [facility] about his recent clinical course. However [...] an MAT intake here or see if [facility] thinks he needs the higher level of care here.I am concern ed that the patient will not accept the terms of starting an MAT program here or at [facility]. He does not like the idea [...] FILMHYDROCORTISONE 1 % EXTERNAL CREAMVITAMIN D (ERGOCALCIFEROL) 79405 UNIT ORAL CAPSULELOTRIMIN AF 2 % EXTERNAL POWDERIBUPROFEN 800 MG ORAL TABLETCVS OMEPRAZOLE 20 MG ORAL TABLET DELAYED RELEASEMedication Changes:Refilled:SUBOXONE 8-2 MG SUBLINGUAL FILM-use 1 film BID Qty: 14[Film] Refills: 0 Method: ElectronicHYDROCORTISONE 1 % EXTERNAL CREAM-Apply to upper chest qid Qty: 60[Tube] Refills: 1 Method: ElectronicAllergies:No Known Allergies (updated 11/24/2014) Orders:Urine Drug Screen- Pain Management Urine 13 Panel [CPT-09930] Adult - Ofc Vst, EST, Level III [CPT-39992] Medications:HYDROCORTISONE 1 % EXTERNAL CREAM (HYDROCORTISONE) Apply to upper chest qid #60[Tube] x 1 Route:EXTERNAL Entered and Authorized by: Ben Jackson MD Method used: Electronically to [facility]* (retail) [address] [place] [address] Note to Pharmacy: Route: EXT; RxID: [id number] 8-2 MG SUBLINGUAL FILM (BUPRENORPHINE HCL-NALOXONE HCL) use 1 film BID #14[Film] x 0 Route:SUBLINGUAL Entered and Authorized by: Ben Jackson MD Method used: Electronically to [facility]* (retail) [address] [place] [address] Note to Pharmacy: Route: SL; RxID: [id number] signed by Ben Jackson MD on 09/24/2019 at 5:36 PM Name Value Range Interpretation Code Description Data Mmaie rce(s) Supporting Document(s) ID Date Data Source [id number] 06/18/2019 05:09:26 PM [facility] Measurements & CalculationsHeight: 71 inches (5 [...] clinicHave you seen a dentist? Yes - mccueIntake performed by: Nory Duvall, June 18, 2019 [...] a non- medical reason? 0Performed by: Nory Duvall June 18, 2019 5:13 PMPatient History Medical [...] during this visit, including review of any fpxu-nqk-egsjfln medications, herbal therapies, and/or supplements.Allergy ReviewAllergy List [...] & Plan Problems:Added: External hemorrhoids (ICD- 455.3) (HJL24-M63.4)Acute thoracic back pain (ICD-724.1) (YJO79-U68.6)Medications:ANUSOL-HC 25 MG RECTAL SUPPOSITORYDOXYCYCLINE MONOHYDRATE 100 MG [...] FILMHYDROCORTISONE 1 % EXTERNAL CREAMVITAMIN D (ERGOCALCIFEROL) 51474 UNIT ORAL CAPSULELOTRIMIN AF 2 % EXTERNAL POWDERIBUPROFEN 800 MG ORAL TABLETCVS OMEPRAZOLE 20 MG ORAL TABLET DELAYED RELEASEMedication Changes:Refilled:DEPO-TESTOSTERONE 200 MG/ML INTRAMUSCULAR SOLUTION-1 cc IM [id number]. Qty: 2[Milliliter] Refills: 0 Method: ElectronicVENTOLIN HFA 108 (90 BASE) MCG/ACT INHALATION AEROSOL SOLUTION-2 puffs every 4 hours as needed. Qty: 1[Inhalation] Refills: 0 Method: ElectronicNew Prescription:ANUSOL-HC 25 MG RECTAL SUPPOSITORY-i supp pr qhs prn hemorrhoids Qty: 12[Suppository] Refills: 0 Method: ElectronicAllergies:No Known Allergies (updated 11/24/2014) Orders:Adult - Ofc Vst, EST, Level IV [CPT-55975] Medications:ANUSOL-HC 25 MG RECTAL SUPPOSITORY (HYDROCORTISONE ACETATE) i supp pr qhs prn hemorrhoids #12[Suppository] x 0 Route:RECTAL Entered and Authorized by: John Vargas DO Method used: Electronically to [facility]* ([employer]) [address] [place] [address] Fax: Note to Pharmacy: Route: RECTAL; RxID: [id number] HFA 108 (90 BASE) MCG/ACT INHALATION AEROSOL SOLUTION (ALBUTEROL SULFATE) 2 puffs every 4 hours as needed. #1[Inhalation] x 0 Route:INHALATION Entered and Authorized by: John Vargas DO Method used: Electronically to [facility]* (retail) [address] [place] [address] Note to Pharmacy: Route: INH; RxID: [id number] 200 MG/ML INTRAMUSCULAR SOLUTION (TESTOSTERONE CYPIONATE) 1 cc IM [id number]. #2[Milliliter] x 0 Route:INTRAMUSCULAR Entered and Authorized by: John Vargas DO Method used: Electronically to [facility]* (retail) [address] [place] [address] Note to Pharmacy: Route: IM; RxID: [id number]] Assessment & Plan Medication Changes:New Prescription:ANUSOL-HC 2.5 % RECTAL CREAM-apply one applicatorful NV qhs prn hemorrhoids Qty: 1[Tube] Refills: 2 Method: ElectronicRemoved:ANUSOL-HC 25 MG RECTAL SUPPOSITORY-i supp pr qhs prn hemorrhoidsMedications:ANUSOL-HC 2.5 % RECTAL CREAM (HYDROCORTISONE) apply one applicatorful NV qhs prn hemorrhoids #1[Tube] x 2 Route:RECTAL Entered and Authorized by: John Vargas DO Method used: Electronically to [facility]* (retail) [address] [place] [address] Note to Pharmacy: Route: RECTAL; RxID: [id number]] Name Value Range Interpretation Code Description Data Mamie rce(s) Supporting Document(s) ID Date Data Source [id number] 05/29/2019 09:42:07 AM [facility] Measurements & CalculationsHeight: 71 inches (5 [...] got sick.Telemedicine visit with patient's location at [facility] and provider's location at offsite office. 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 #42[Capsule] x 0 Route:ORAL Entered and Authorized by: Ben Jackson MD Method used: Electronically to [facility]* (retail) [address] [place] [address] Note to Pharmacy: Route: ORAL; RxID: [id number] 600 MG ORAL TABLET (GABAPENTIN) 1 po qid #120[Tablet] x 1 Entered and Authorized by: Ben Jackson MD Method used: Electronically to [facility]* (retail) [address] [place] [address] Note to Pharmacy: Route: ORAL; RxID: [id number] signed by Ben Jackson MD on 05/29/2019 at 10:11 AM Name Value Range Interpretation Code Description Data Mamie rce(s) Supporting Document(s) Procedure Social History Code Duration Value Status Description Data Source(s ) Smoking 08/27/2019 12:00:00 AM EDT Unknown if ever smoked comp leted Unknown if ever smoked [facility] ([facility]) Smoking 06/01/2019 12:00:00 AM EST Unknown if ever smoked comp leted Unknown if ever smoked [facility] ([facility]) Vital Signs ID Date Data Source UNK Name Value Range Interpretation Code Description Data Source(s) Body weight 4312 [oz_av] 4312 [oz_av] ZACH ([facility]) Systolic blood pressure 129 mm[Hg] 129 mm[Hg] A THENA ([facility]) Body mass index (BMI) [Ratio] 37.6 kg/m2 37.6 k g/m2 RIO NIDO ([facility]) Body height 71 [in_i] 71 [in_i] ZACH ([facility]) Diastolic blood pressure 85 mm[Hg] 85 mm[Hg] ZACH ([facility]) Body mass index (BMI) [Ratio] 29.8 kg/m2 29.8 k g/m2 MEDENT ([facility] Heart rate 86 /min 86 /min MEDENT ([facility] Diastolic blood pressure 62 mm[Hg] 62 mm[Hg] [facility] ([facility] Systolic blood pressure 112 mm[Hg] 112 mm[Hg] M EDENT ([facility] Body weight 220.00 [lb_av] 220.00 [lb_av] MEDEN T ([facility] Body height 72 [in_i] 72 [in_i] MEDENT ([facility] 6'0" Body weight 219.00 [lb_av] 219.00 [lb_av] MEDEN T ([facility]) Body temperature 98.3 [degF] 98.3 [degF] MEDENT ([facility]) Respiratory rate 18 /min 18 /min MEDENT ( [facility]) Heart rate 73 /min 73 /min MEDENT ([facility]) Diastolic blood pressure 88 mm[Hg] 88 mm[Hg] MEDENT ([facility]) Systolic blood pressure 133 mm[Hg] 133 mm[Hg] M EDENT ([facility]) Body weight 3456 [oz_av] 3456 [oz_av] ZACH ([facility]) Systolic blood pressure 149 mm[Hg] 149 mm[Hg] A THENA ([facility]) Body height 71 [in_i] 71 [in_i] ZACH ([facility]) Diastolic blood pressure 83 mm[Hg] 83 mm[Hg] ZACH ([facility]) Diastolic blood pressure 0 mm[Hg] Normal (applies to non-numeric results) 0 mm[Hg] [facility] ([facility]) Systolic blood pressure 0 mm[Hg] Normal (applies t o non-numeric results) 0 mm[Hg] [facility] ([facility]) Body mass index (BMI) [Ratio] 0.00 kg/m2 No rmal (applies to non-numeric results) 0.00 [facility]2 [facility] Body weight Measured 0.00 lbs Normal (applies to n on-numeric results) 0.00 lbs [facility] ([facility]) Body height 0.00 in Normal (applies to non-numeric resu lts) 0.00 in [facility] ([facility]) Body weight 3604 [oz_av] 3604 [oz_av] ZACH ([facility]) Systolic blood pressure 118 mm[Hg] 118 mm[Hg] A RACHAEL ([facility]) Body height 71 [in_i] 71 [in_i] ZACH ([facility]) Diastolic blood pressure 78 mm[Hg] 78 mm[Hg] ZACH ([facility]) Diastolic blood pressure 0 mm[Hg] Normal (applies to non-numeric results) 0 mm[Hg] [facility] ([facility]) Systolic blood pressure 0 mm[Hg] Normal (applies t o non-numeric results) 0 mm[Hg] [facility] ([facility]) Body mass index (BMI) [Ratio] 0.00 kg/m2 No rmal (applies to non-numeric results) 0.00 kg/m2 [facility] Body weight Measured 0.00 lbs Normal (applies to n on-numeric results) 0.00 lbs [facility] ([facility]) Body height 0.00 in Normal (applies to non-numeric resu lts) 0.00 in [facility] ([facility]) Body weight 3656 [oz_av] 3656 [oz_av] ZACH ([facility]) Systolic blood pressure 109 mm[Hg] 109 mm[Hg] A RACHAEL ([facility]) Body height 71 [in_i] 71 [in_i] ZACH ([facility]) Diastolic blood pressure 69 mm[Hg] 69 mm[Hg] ZACH ([facility]) Patient Treatment Plan of Care Planned Activity Planned Date Details Description Data Source (s) Trazodone Hydrochloride 50 MG Oral Tablet ZACH ([facility]) Omeprazole 40 MG Delayed Release Oral Capsule ZACH ([facility]) duloxetine 60 MG Delayed Release Oral Capsule ZACH ([facility]) Doxycycline Monohydrate 100 MG Oral Capsule ZACH ([facility]) Doxepin Hydrochloride 25 MG Oral Capsule ZACH ([facility]) Docusate Sodium 100 MG Oral Capsule [DOK] ZACH ([facility]) Buprenorphine 8 MG / Naloxone 2 MG Oral Strip ZACH ([facility])
[2020-06-21 09:52] LABS: HEMATOCRIT 38.1 % (42.0-52.0); MEAN CORPUSCULAR HEMOGLOBIN 27.5 pg (27.0-33.0); MEAN CORPUSCULAR HGB CONC 31.5 g/dl (32.0-36.5); MEAN CORPUSCULAR VOLUME 87.4 fl (80.0-96.0); PLATELET COUNT, AUTOMATED 230 10^3/uL (150-450); RED BLOOD COUNT 4.36 10^6/uL (4.30-6.10)
[2020-06-21 10:17] LABS: BLOOD UREA NITROGEN 22 MG/DL (7-18); CALCIUM LEVEL 8.5 MG/DL (8.5-10.1); CARBON DIOXIDE LEVEL 27 MEQ/L (21-32); CHLORIDE LEVEL 104 MEQ/L (98-107); CREATININE FOR GFR 1.07 MG/DL (0.70-1.30); GLOMERULAR FILTRATION RATE > 60.0 (>60); GLUCOSE, FASTING 175 MG/DL (70-100); POTASSIUM SERUM 3.8 MEQ/L (3.5-5.1); SODIUM LEVEL 138 MEQ/L (136-145)
[2020-06-21] MEDS ORDERED: fentaNYL 100 MCG/2 ML INJECTION (J3010) IV PRN (11:45)
[2020-06-21] MEDS ORDERED: ONDANSETRON 4MG/2ML VIAL IV PRN (11:45)
[2020-06-21] MEDS ORDERED: LR 1,000 ML IV SCH (11:45)
[2020-06-21 12:05] VITALS: BP 142/93
--- NOTE | 2020-06-21 12:30 | RO ---
OPERATIVE NOTE DATE OF OPERATION: 06/21/2020 PREOPERATIVE DIAGNOSIS: Painful metatarsals 3 and 4 left foot. POSTOPERATIVE DIAGNOSIS: Painful metatarsals 3 and 4 left foot. PROCEDURE: Left 3rd metatarsophalangeal joint cheilectomy and screw removal and left 4th metatarsal osteotomy. SURGEON: Cyrus Rain DPM HANDLING TECH: None. ANESTHESIA: Monitored anesthesia care and preop injection of 15 mL of 1:1 mixture 1% Lidocaine plain and 0.5% Marcaine plain. ESTIMATED BLOOD LOSS: Minimal. MATERIALS: Arthrex 2.5 headless compression screw, 3-0 and 4-0 Vicryl, 4-0 nylon. INJECTABLES: None. COMPLICATIONS: None. CONDITION: Stable. INDICATIONS: Ben Coreas is a 49-year-old male who has painful metatarsals in his left foot. He has pressure spots causing deep corn under the metatarsal head. He presents today for surgical correction. The patient, site and side identified and marked in preoperative area. Consent was reviewed and obtained. Risks, complications and alternatives to the procedure were explained to the patient in detail, all questions were answered. DESCRIPTION OF PROCEDURE: The patient was brought to the operating room and placed on the operating table in supine position. Monitored anesthesia care was supplied by the anesthesia team. Preop injection of 15 mL of 1:1 mix of 1% Lidocaine plain and 0.5% Marcaine plain was injected in the left foot. The left foot was prepped and draped in usual sterile fashion. Tourniquet was applied to the left ankle and inflated to 250 mmHg. Dorsal incision was made at the 3rd interspace and carried through with #15 blade, dissection was first carried to the 3rd metatarsal. Scar tissue was noted overlying the bone. This was removed with a rongeur. The screw was noted to be implanted deep within the bone, actually penetrating through to the plantar surface. This was removed using a rongeur. Some of the irregular bone borders were removed using rongeur and then smoothed with rasp to remove bony prominence from the plantar surface of the 3rd metatarsal. Attention was paid to the 4th metatarsal. Dissection was carried to the 4th metatarsophalangeal joint. Linear capsulotomy was performed exposing the metatarsal head. McGlamry elevator was used to release the plantar structures and osteotomy was performed of the 4th metatarsal transposing it proximally. C-arm was used to verify good position and good creation of the metatarsal parabola. This was fixated with an Arthrex 2.5 headless compression screw. Bone edges were removed with rongeur and smoothed with rasp. Site was irrigated with normal saline. Deep closure was performed with 3-0 Vicryl, subcutaneous closure with 4-0 Vicryl and skin closure with 4-0 nylon. Sterile dressings were applied. The patient was brought to PACU with vital signs stable, neurovascular status intact. He will be partial weightbearing and follow up in the office in two days.
== END 2020-06-21 12:20 | disposition home or self-care (01) ==
LOC: M SDC 08:59
PROVIDERS: ATTEND Podiatrist Foot & Ankle Surgery
DX: T84.84XA Pain due to internal orthopedic prosthetic devices, implants and grafts, initial encounter (principal); M79.675 Pain in left toe(s); F17.210 Nicotine dependence, cigarettes, uncomplicated; F32.9 Major depressive disorder, single episode, unspecified; F41.9 Anxiety disorder, unspecified; K21.9 Gastro-esophageal reflux disease without esophagitis; X58.XXXA Exposure to other specified factors, initial encounter; Y92.9 Unspecified place or not applicable; Y93.9 Activity, unspecified; Y99.9 Unspecified external cause status; Z79.899 Other long term (current) drug therapy; Z86.59 Personal history of other mental and behavioral disorders
CPT/HCPCS: 20680; 28272; 28288; 36415; 80048; 85027; 88300; C1713; J0690; J2250; J2405; J3010

== ENCOUNTER 2020-11-08 08:05 | Day surgery (SDC) | payer OTHER ==
[~2020-11-08] VITALS: Ht 195.6 cm; Wt 127.6 kg
[~2020-11-08 08:05] MED LIST changes: -BUPIVACAINE HCL 0.5% 10ML VIAL As Ordered ONE; -LIDOCAINE 1% MDV 20ML VIAL As Ordered ONE; -LIDOCAINE 1% MDV 20ML VIAL SQ PRN; +OMEP40CA4 PO; -OMEP40CA97 PO; -ONDANSETRON 4MG/2ML VIAL As Ordered ONE; -dexameTHASONE 4 MG/ML 1ML VIAL (J1100 PER 1MG) As Ordered ONE
[2020-11-08] MEDS ORDERED: LIDOCAINE 1% MDV 20ML VIAL As Ordered ONE (08:55)
[2020-11-08] MEDS ORDERED: dexameTHASONE 4 MG/ML 1ML VIAL (J1100 PER 1MG) As Ordered ONE ×2 (08:56→09:54)
[2020-11-08] MEDS ORDERED: BUPIVACAINE HCL 0.5% 10ML VIAL As Ordered ONE (08:56)
[2020-11-08] MEDS ORDERED: propofoL 500 MG/50 ML VIAL As Ordered ONE (09:51)
[2020-11-08] MEDS ORDERED: KETOROLAC 60MG 2ML VIAL As Ordered ONE (09:54)
[2020-11-08] MEDS ORDERED: ACETAMINOPHEN 1000MG 100ML IV BTL (OFIRMEV) (J0131 PER 10MG) As Ordered ONE (09:54)
[2020-11-08] MEDS ORDERED: ONDANSETRON 4MG/2ML VIAL As Ordered ONE (09:54)
[2020-11-08] MEDS ORDERED: HYDR-4517 PO (10:16)
[2020-11-08] MEDS ORDERED: ACET-683 PO (10:38)
[2020-11-08] MEDS ORDERED: IBUP1TAB7 PO (10:38)
--- NOTE | 2020-11-08 11:07 | RO ---
OPERATIVE NOTE DATE OF OPERATION: 11/08/2020 PREOPERATIVE DIAGNOSIS: Right 3rd and 4th metatarsal deformities and painful hardware. POSTOPERATIVE DIAGNOSIS: Right 3rd and 4th metatarsal deformities and painful hardware. PROCEDURE: Right 3rd metatarsal cheilectomy and screw removal; 4th metatarsal shortening osteotomy. SURGEON: Cyrus Rain DPM MIXER DRIVER: None. ANESTHESIA: Monitored anesthesia care, preop injection of 19 mL of 1:1 mixture of 1% Lidocaine plain and 0.5% Marcaine plain. ESTIMATED BLOOD LOSS: Minimal. MATERIALS: Arthrex 2.5 headless compression screw, 3-0 Vicryl, 4-0 nylon. INJECTABLES: 1 mL Decadron 4 mg per liter. COMPLICATIONS: None. CONDITION: Stable. INDICATIONS: Ben Coreas is a 50-year-old male who presents with painful metatarsal deformities to his right foot. He presented to [facility] for surgical correction. Patient site and side were identified in preop holding area and consent was reviewed and obtained. Risks, complications and alternatives to the procedure were explained to the patient in detail and all questions were answered. DESCRIPTION OF PROCEDURE: The patient was brought to the operating room and placed on the operating table in supine position. Monitored anesthesia care was delivered by the anesthesia team. Preop injection of 19 mL of 1:1 mixture of 1% Lidocaine plain and 0.5% Marcaine plain was injected in the right foot. Right foot was prepped and draped in usual sterile fashion. Tourniquet was applied to right ankle and inflated at 225 mmHg. Dorsal incision was made at the 3rd interspace between the 3rd and 4th metatarsal heads. Dissection was first carried to the 3rd metatarsal. There was noted to be scar tissue overlying the joint. Scar tissue was freed and the joint was accessed. Rongeur was used to remove some scar tissue overlying the dorsal surface of the bone and the screw was identified. This was removed using the screwdriver from the Arthrex set. McGlamry elevator was used to release plantar structures and some of the plantar condyle was resected with rongeur and smoothed with rasp. Attention was then paid to the 4th metatarsal dorsal. Capsulotomy was performed exposing the metatarsal head. McGlamry elevator was used to release the plantar structures and osteotomy was performed in the metatarsal head transposing it proximally. This was fixated with Arthrex 2.5 headless compression screw. Remaining bone ledge was resected with rongeur and smoothed with rasp. Site was irrigated with normal saline. Deep closure was performed with 3-0 Vicryl and skin closure with 4-0 nylon. 1 mL Decadron was injected. Sterile dressings were applied. Tourniquet was deflated. The patient was brought to PACU with vital signs stable, neurovascular status intact. He will be partial weightbearing on right foot with follow up in the office in two days.
[2020-11-08] MEDS ORDERED: ONDANSETRON 4MG/2ML VIAL IV PRN (11:10)
[2020-11-08] MEDS ORDERED: oxyCODONE 5MG TAB PO PRN (11:10)
[2020-11-08] MEDS ORDERED: LR 1,000 ML IV SCH (11:10)
[2020-11-08 11:25] VITALS: BP 132/85
== END 2020-11-08 11:32 | disposition home or self-care (01) ==
LOC: M SDC 08:05
PROVIDERS: ATTEND Podiatrist Foot & Ankle Surgery
DX: M21.6X1 Other acquired deformities of right foot (principal); E23.0 Hypopituitarism; F17.210 Nicotine dependence, cigarettes, uncomplicated; F32.9 Major depressive disorder, single episode, unspecified; F41.9 Anxiety disorder, unspecified; K21.9 Gastro-esophageal reflux disease without esophagitis; M54.9 Dorsalgia, unspecified; M19.90 Unspecified osteoarthritis, unspecified site; T84.84XA Pain due to internal orthopedic prosthetic devices, implants and grafts, initial encounter; X58.XXXA Exposure to other specified factors, initial encounter; Z79.899 Other long term (current) drug therapy; Z86.59 Personal history of other mental and behavioral disorders
CPT/HCPCS: 20680; 28288; 28308; C1713; J0131; J0690; J1100; J1885; J2250; J2405; J3010; U0002

== ENCOUNTER → 2022-07-16 | Outpatient (CLI) | payer OTHER ==
[~2022-07-16] MED LIST changes: +ACET-683 PO; +HYDR-4517 PO; +IBUP1TAB7 PO; -LIDOCAINE 2% 100MG/5ML SDV (FOR ANES.) As Ordered ONE; -LR 1,000 ML IV ONE; -MIDAZOLAM INJ 2MG/2ML VIAL (J2250 PER 1MG) As Ordered ONE; -ceFAZolin SOD 2 GM in IV 1 EA IV ONE; -fentaNYL 100 MCG/2 ML INJECTION (J3010) As Ordered ONE; -propofoL 500 MG/50 ML VIAL As Ordered ONE
== END ==
LOC: M RAD 15:04
PROVIDERS: ATTEND Family Medicine Addiction Medicine
DX: M25.561 Pain in right knee (principal); E03.9 Hypothyroidism, unspecified; M17.11 Unilateral primary osteoarthritis, right knee; M79.89 Other specified soft tissue disorders

== ENCOUNTER 2022-07-23 14:59 | Emergency (ER) | payer OTHER ==
[~2022-07-23] VITALS: Ht 195.6 cm; Wt 146.3 kg
[2022-07-23] MEDS ORDERED: QUET100T2 (15:18)
[2022-07-23] MEDS ORDERED: ALBU8.5H (15:18)
[2022-07-23] MEDS ORDERED: CLON-412 (15:18)
[2022-07-23] MEDS ORDERED: HYDR-3363 (15:18)
[2022-07-23] MEDS ORDERED: SUBL300I (15:18)
[2022-07-23] MEDS ORDERED: IBUP-1022 PO (17:56)
[2022-07-23] MEDS ORDERED: LIDO15SO4 PO (17:56)
[2022-07-23 18:05] VITALS: BP 143/90
== END 2022-07-23 18:06 | disposition home or self-care (01) ==
LOC: M ED 14:59
DX: U07.1 COVID-19 (principal); K21.9 Gastro-esophageal reflux disease without esophagitis; Z87.442 Personal history of urinary calculi; F17.200 Nicotine dependence, unspecified, uncomplicated; Z79.890 Hormone replacement therapy; Z79.899 Other long term (current) drug therapy

== ENCOUNTER → 2022-12-31 | Outpatient (CLI) | payer OTHER ==
[~2022-12-31] MED LIST changes: +ALBU8.5H; +CLON-412; +HYDR-3363; +LIDO15SO PO; +QUET100T2; +SUBL300I
== END ==
LOC: M SOG 08:41
PROVIDERS: ATTEND Orthopaedic Surgery
DX: M25.562 Pain in left knee (principal)

== ENCOUNTER → 2023-11-27 | Outpatient (REF) | payer OTHER ==
[~2023-11-27] MED LIST changes: -LIDO15SO PO; +LIDO15SO8 PO; +ONDA-282 PO; +ONDA-284 PO; -ONDA4TAB6 PO; -ONDA8TAB8 PO
[2023-11-27 18:44] LABS: BASO % 0.4 % (0.0-1.0); EOS # 0.1 10^3/uL (0.0-0.5); EOS % 0.8 % (0.0-3.0); HEMATOCRIT 42.7 % (42.0-52.0); HEMOGLOBIN 14.4 g/dl (13.5-17.5); LYMPH # 1.6 10^3/uL (1.5-5.0); LYMPH % 21.4 % (24.0-44.0); MEAN CORPUSCULAR HEMOGLOBIN 28.6 pg (27.0-33.0); MEAN CORPUSCULAR HGB CONC 33.7 g/dl (32.0-36.5); MEAN CORPUSCULAR VOLUME 84.7 fl (80.0-96.0); MONO # 0.7 10^3/uL (0.0-0.8); MONO % 9.3 % (2.0-8.0); NEUTROPHILS # 4.9 10^3/uL (1.5-8.5); NEUTROPHILS % 67.8 % (36.0-66.0); PLATELET COUNT, AUTOMATED 203 10^3/uL (150-450); RED BLOOD COUNT 5.04 10^6/uL (4.30-6.10); WHITE BLOOD COUNT 7.3 10^3/uL (4.0-10.0)
[2023-11-27 18:48] LABS: ALBUMIN 4.1 G/DL (3.2-5.2); ALKALINE PHOSPHATASE 65 U/L (46-116); ALT/SGPT 83 U/L (7.0-40); AST/SGOT 40 U/L (<34); BILIRUBIN,TOTAL 0.7 MG/DL (0.3-1.2); BLOOD UREA NITROGEN 21 MG/DL (9-23); CALCIUM LEVEL 9.5 MG/DL (8.5-10.1); CARBON DIOXIDE LEVEL 25 MMOL/L (20-31); CHLORIDE LEVEL 103 MMOL/L (98-107); CHOLESTEROL LEVEL 220 MG/DL (<200); CHOLESTEROL RISK RATIO 6.26 (<5); GLOMERULAR FILTRATION RATE > 60.0 (>56); GLUCOSE, FASTING 93 MG/DL (60-100); HDL CHOLESTEROL 35.1 MG/DL (>40); LDL CHOLESTEROL 117.5 MG/DL (<100); NON-HDL-C 184.9 MG/DL; POTASSIUM SERUM 4.3 MMOL/L (3.5-5.1); SODIUM LEVEL 137 MMOL/L (136-145); TOTAL PROTEIN 7.6 G/DL (5.7-8.2); TRIGLYCERIDES LEVEL 337 MG/DL (<150)
[2023-11-27 18:50] LABS: THYROID STIMULATING HORMONE 0.232 uIU/ML (0.55-4.78)
[2023-11-27 18:52] LABS: TESTOSTERONE 87 NG/DL (241-827)
== END ==
LOC: M LAB REF 17:06
PROVIDERS: ATTEND Family Medicine Addiction Medicine
DX: I10 Essential (primary) hypertension (principal); E29.1 Testicular hypofunction

== ENCOUNTER → 2024-11-20 | Outpatient (CLI) | payer OTHER, SELFPAY ==
[~2024-11-20] MED LIST changes: +GABA-1172 PO; +GABA-1490 PO; +GABA-1635 PO; -GABA-282 PO; -GABA600T4 PO; -GABA800T4 PO
[2024-11-20 14:22] LABS: PLATELET COUNT, AUTOMATED 181 10^3/uL (150-450)
[2024-11-20 14:47] LABS: ALT/SGPT 51 U/L (7.0-40); AST/SGOT 40 U/L (<34); CALCIUM LEVEL 8.8 MG/DL (8.5-10.1); CARBON DIOXIDE LEVEL 26 MMOL/L (20-31); CHLORIDE LEVEL 104 MMOL/L (98-107); CREATININE FOR GFR 0.93 MG/DL (0.70-1.30); GLOMERULAR FILTRATION RATE > 90.0 (>56); POTASSIUM SERUM 4.1 MMOL/L (3.5-5.1); SODIUM LEVEL 143 MMOL/L (136-145)
[2024-11-20 15:12] LABS: HIV 1&2 SCREEN NEGATIVE (NEGATIVE)
[2024-11-20 15:42] LABS: HEPATITIS C VIRUS ABY INDEX > 11.00 INDEX (<0.8)
[2024-11-20 16:01] LABS: GC DNA AMPLIFICATION NEGATIVE (NEGATIVE)
[2024-11-24 00:01] LABS: HCV RNA QUANTITATION <15 NOT DETECTED IU/mL (NOT DETECTED); HCV RNA log10 <1.18 NOT DETECTED Log IU/mL (NOT DETECTED)
[2024-11-24 22:13] LABS: HEPATITIS BE ANTIGEN Nonreactive (NON REACTIV)
== END ==
LOC: M LAB 13:07
PROVIDERS: ATTEND Family Medicine
DX: F11.20 Opioid dependence, uncomplicated (principal)

== ENCOUNTER → 2025-02-11 | Outpatient (REF) | payer OTHER, SELFPAY ==
[~2025-02-11] MED LIST changes: -IBUP-1022 PO; +IBUP600T42 PO
[2025-02-11 15:39] LABS: ALT/SGPT 53 U/L (7.0-40); AST/SGOT 39 U/L (<34); CALCIUM LEVEL 8.7 MG/DL (8.5-10.1); CARBON DIOXIDE LEVEL 27 MMOL/L (20-31); CHLORIDE LEVEL 104 MMOL/L (98-107); CHOLESTEROL LEVEL 205 MG/DL (<200); CHOLESTEROL RISK RATIO 6.28 (<5); CREATININE FOR GFR 0.91 MG/DL (0.70-1.30); GLOMERULAR FILTRATION RATE > 90.0 (>56); LDL CHOLESTEROL 139.4 MG/DL (<100); NON-HDL-C 172.4 MG/DL; POTASSIUM SERUM 4.0 MMOL/L (3.5-5.1); SODIUM LEVEL 142 MMOL/L (136-145); TRIGLYCERIDES LEVEL 165 MG/DL (<150)
[2025-02-11 15:41] LABS: TESTOSTERONE 150 NG/DL (241-827)
== END ==
LOC: M LAB REF 14:27
PROVIDERS: ATTEND Family Medicine Addiction Medicine
DX: E29.1 Testicular hypofunction (principal); E78.5 Hyperlipidemia, unspecified

== ENCOUNTER → 2025-03-11 | Outpatient (CLI) | payer OTHER | LOC: M SOG 07:33 | PROVIDERS: ATTEND Orthopaedic Surgery | DX: M17.0 Bilateral primary osteoarthritis of knee (principal) ==